=== PATIENT | female | born 2000 | race Caucasian/White ===

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

== ENCOUNTER 2021-10-28 02:19 | Emergency (ER) | payer OTHER, SELFPAY ==
[2021-10-28 02:26] VITALS: PULSE 138; O2SAT 96
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
[2021-10-28 04:19] LABS: Basophils Absolute Auto 0.1 X10*3/uL (0.0-0.2); Basophils Percent Auto 0.2 % (0-2); Hematocrit 38.9 % (37.0-47.0); Hemoglobin 12.9 g/dl (12.0-16.0); Imm Gran Abs Auto 0.13 X10*3/uL (0.00-0.03); Imm Gran Pct Auto 0.5 % (0.0-0.4); Lymphocytes Absolute Auto 1.1 X10*3/uL (1.2-4.9); MANUAL DIFF FLAG SCAN; Mean Corpuscular HGB Conc 33.2 g/dl (31.0-35.0); Mean Corpuscular Hemoglobin 30.2 pg (27.0-33.0); Mean Corpuscular Volume 91.1 fL (80.0-98.0); Mean Platelet Volume 10.1 fL (9.4-12.3); Monocytes Absolute Auto 1.7 X10*3/uL (0.1-1.2); Monocytes Percent Auto 6.2 % (2-11); Neutrophils Absolute Auto 24.2 x10*3/uL (2.0-8.3); Neutrophils Percent Auto 89.1 % (45-73); Platelet Count 373 X10*3/uL (160-400); Red Blood Count 4.27 X10*6/uL (4.20-5.50); Red Cell Distribution Width 13.4 % (11.0-16.0); SCAN SMEAR FLAG 1; White Blood Count 27.1 X10*3/uL (4.8-10.8)
[2021-10-28 04:22] LABS: UPreg QC Valid YES; Urine Pregnancy NEGATIVE (NEGATIVE)
[2021-10-28 04:23] LABS: SLIDE REVIEW VERIFIED
[2021-10-28 04:35] LABS: COVID-19 Test Negative (Negative); IDNOW Serial# 16C4AD1C
[2021-10-28 04:36] LABS: Amphetamine Screen Urine Not Detected (Not Detect); Barbiturates, Urine Not Detected (Not Detect); Benzodiazepines Screen Urine Not Detected (Not Detect); Cannabinoid Screen Urine POSITIVE (Not Detect); Cocaine Screen Urine POSITIVE (Not Detect); Fentanyl, urine Not Detected (Not Detect); Opiate Screen Urine Not Detected (Not Detect); Phencyclidine Screen Urine Not Detected (Not Detect)
[2021-10-28 04:38] LABS: Alanine Aminotransferase 25 U/L (0-31); Albumin Level 4.6 g/dL (3.5-5.0); Alkaline Phosphatase 80 U/L (39-117); Anion Gap 19 (12-20); Aspartate Amino Transferase 40 U/L (5-31); Bilirubin Direct 0.3 mg/dL (0.0-0.5); Bilirubin Total 0.6 mg/dL (0.0-1.0); Blood Urea Nitrogen 16 mg/dL (9-16); Calcium 9.5 mg/dL (8.4-10.2); Carbon Dioxide 20 mmol/L (22-29); Chloride 106 mmol/L (96-108); Estimated Glomerular Filt Rate > 60; Glucose Random 94 mg/dL (60-115); Potassium 3.9 mmol/L (3.3-5.1); Sodium 141 mmol/L (135-145); Total Protein 7.7 g/dL (6.5-8.0)
[2021-10-28 05:08] VITALS: BP 138/71; PULSE 95; RESP 20; O2SAT 96; BMI 26.6
--- NOTE | 2021-10-28 07:20 | MHC.CARE ---
[employer] sheet submitted
[2021-10-28 10:53] LABS: MANUAL DIFF FLAG NO
[2021-10-28 10:54] LABS: Basophils Percent Auto 0.2 % (0-2); Eosinophils Percent Auto 0.1 % (0-4); Hematocrit 34.4 % (37.0-47.0); Hemoglobin 11.8 g/dl (12.0-16.0); Imm Gran Abs Auto 0.08 X10*3/uL (0.00-0.03); Imm Gran Pct Auto 0.4 % (0.0-0.4); Lymphocytes Absolute Auto 1.9 X10*3/uL (1.2-4.9); Lymphocytes Percent Auto 9.1 % (20-40); Mean Corpuscular HGB Conc 34.3 g/dl (31.0-35.0); Mean Corpuscular Hemoglobin 31.1 pg (27.0-33.0); Mean Corpuscular Volume 90.5 fL (80.0-98.0); Mean Platelet Volume 10.3 fL (9.4-12.3); Monocytes Absolute Auto 1.3 X10*3/uL (0.1-1.2); Monocytes Percent Auto 6.4 % (2-11); Neutrophils Absolute Auto 17.3 x10*3/uL (2.0-8.3); Neutrophils Percent Auto 83.8 % (45-73); Platelet Count 332 X10*3/uL (160-400); Red Cell Distribution Width 13.4 % (11.0-16.0); White Blood Count 20.7 X10*3/uL (4.8-10.8)
[2021-10-28 11:11] LABS: Lactic Acid 1.1 mmol/L (0.5-2.0)
--- NOTE | 2021-10-28 12:33 | PC.NURSE ---
client received in behavioral pod, counselor relayed to this filing writer that client can spend a long time in restroom and nconsidering we only have one restroom currently, t/w will begin prompting after ten minutes,
[2021-10-28 15:52] VITALS: RESP 16
--- NOTE | 2021-10-28 16:22 | PC.NURSE ---
Pt reports constipation. Has known bathroom behaviors reports. Pt informed of time limit.
--- NOTE | 2021-10-28 16:26 | PC.NURSE ---
Security contacted to assist in removal from bathroom.
[2021-10-29 01:03] VITALS: BP 134/65; PULSE 82; RESP 17; TEMP 36.6; O2SAT 98
--- NOTE | 2021-10-29 06:02 | PC.NURSE ---
Patient slept through the night, no distress observed/reported, behavior appropriate and non concerning, patient not on any medication, awaiting BHN assessment in the morning, VSS, will continue to monitor.
== END 2021-10-29 11:02 | disposition home or self-care (01) ==
PROVIDERS: Emergency Provider Emergency Medicine
DX: F25.0 Schizoaffective disorder, bipolar type (principal); F41.9 Anxiety disorder, unspecified; S00.12XA Contusion of left eyelid and periocular area, initial encounter; S60.212A Contusion of left wrist, initial encounter; S60.211A Contusion of right wrist, initial encounter; S80.02XA Contusion of left knee, initial encounter; S80.01XA Contusion of right knee, initial encounter; Y35.813A Legal intervention involving manhandling, suspect injured, initial encounter; R45.1 Restlessness and agitation; F19.10 Other psychoactive substance abuse, uncomplicated; Y93.9 Activity, unspecified; Y92.9 Unspecified place or not applicable; Y99.9 Unspecified external cause status; Z20.822 Contact with and (suspected) exposure to COVID-19; Z91.14 Patient's other noncompliance with medication regimen
CPT/HCPCS: 36415; 80048; 80076; 80307; 81025; 83605; 85025; 87635; 99284

== ENCOUNTER 2022-07-14 19:56 | Emergency (ER) | payer OTHER, SELFPAY ==
[2022-07-14 20:02] VITALS: BP 109/55; BP 120/86; PULSE 89; PULSE 92; RESP 16; TEMP 36.7; O2SAT 96; O2SAT 97; BMI 26.3
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
--- NOTE | 2022-07-14 21:02 | ED_ITS ---
HPI - Overdose General Chief Complaint: Overdose Stated Complaint: od Time Seen by Provider: 07/14/22 20:05 Source: EMS Mode of arrival: EMS Limitations: other History of Present Illness HPI Narrative: Patient comes to the emergency room via ambulance. Patient was found minimally responsive by friends at another friend's house. Friend is administered 8 mg of Narcan and patient became responsive. Patient has no complaints, states that she feels very sleepy. Denies suicidal or homicidal ideation. Patient denies using any drugs Related Data Home Medications Medication Instructions Recorded Confirmed No Known Home Meds 10/28/21 10/28/21 Allergies Allergy/AdvReac Type Severity Reaction Status Date / Time No Known Allergies Allergy Unverified 10/29/19 17:04 [No Known Allergies*] Review of Systems Review of Systems: Constitutional : No Weight loss, No Fever, No Chills, No Night Sweats, No Fatigue, No Malaise ENT/Mouth : No Hearing loss, No Ear Pain, No Nasal Congestion, No Sinus Pain, No Hoarseness, No sore throat, No Rhinorrhea, No Swallowing Difficulty Eyes: No Eye Pain, No Swelling, No Redness, No Foreign Body, No Discharge, No Vision Changes Cardiovascular : No Chest Pain, No SOB, No Dyspnea on Exertion, No Orthopnea, No Edema, No Palpitations Respiratory : No Cough, No Sputum, No Wheezing, No Smoke Exposure, No Dyspnea Gastrointestinal : No Nausea, No Vomiting, No Diarrhea, No Constipation, No abdominal Pain, No Hematochezia, No Melena Genitourinary : no irregular bleeding, No Dysuria, No Urinary Frequency, No Hematuria, No Urinary Incontinence, No Urgency, No Flank Pain, No Urinary Flow Changes, No Hesitancy Musculoskeletal : No joint pain, No Myalgias, No Joint Swelling Skin : No Skin Lesions, No rash Neuro : No Weakness, No Numbness, No Paresthesias, No Loss of Consciousness, No Dizziness, No Headache Psych : No Anxiety/Panic, No Depression, No SI/HI/AH/VH, denies drug abuse Heme/Lymph: No Bruising, No Bleeding,No Lymphadenopathy Endocrine : No Polyuria, No Polydipsia, No Temperature Intolerance PMFSH Past Medical History Medical History Bipolar 1 disorder, mixed, severe Cocaine use disorder Depression No known health problems Overdose Social History Social History Household Members: Family Housing: Condominium Do you presently have visiting nurse or other home services: No Alcohol intake: current Alcohol intake frequency: a few times a month Patient Tobacco Use Status: Never used Tobacco Smoked in Last 30 Days: No Second Hand Smoke Exposure: No Substance Use Type: Marijuana Advance Directives: No Advance Directives Information Provided: No service: No Sexual orientation: Lesbian/Robins/Homosexual Physical Exam Vital Signs: Vital Signs: Last Vital Signs Temp 98.0 F 07/14/22 22:03 Pulse 87 07/14/22 22:03 Resp 16 07/14/22 22:03 BP 103/62 07/14/22 22:03 Pulse Ox 99 07/14/22 22:03 O2 Del Method Room Air 07/14/22 22:03 BMI result Body Mass Index 26.3 Const: Other: Appearance: Alert. No acute distress, somnolent, easily arousable Eyes: Pupils equal, round and reactive to light. ENT: Pharynx normal. Neck: Normal inspection. Neck supple. No lymph nodes noted. No crepitus CVS: Normal heart rate and rhythm. Pulses normal. Normal S1 and S2 Respiratory: No respiratory distress. Breath sounds normal. No Wheezing. No rales Abdomen: Soft and nontender. No rigidity. No distention. Skin: Skin warm and dry. Normal skin color. Normal skin turgor. Extremities: No lower extremity edema. No Lacerations. No Rash Neuro: Oriented X 3. No motor deficit. No sensory deficit. Moving all extremities. No slurred speech. CN 2 through 12 grossly intact Psych: calm, cooperative, normal affect Medical Decision Making Medical Decision Making MDM Narrative: -patient had good response with Narcan according to paramedics. -reviewing patient's previous medical records, patient has tested positive for cocaine and marijuana -plan: Metabolized to freedom -reassess this patient wants a care/sude eval -patient provided with home Narcan -physician observation started at 20:55 - -patient awake, alert, ambulated to the bathroom by herself, oxygen saturation 100% -patient declined to be seen by the care team/resource recovery engineer Lab Data Labs: Lab Results 06/03/23 06/03/23 06/03/23 Range/Units 22:28 22:28 22:28 Urine Color Yellow Urine Appearance Clear Urine pH 6.0 (5.0-9.0) Ur Specific [place] 1.010 (1.005-1.025) Urine Protein Negative (Neg-Trace) mg/dL Urine Glucose (UA) Negative (Negative) mg/dL Urine Ketones Negative (Negative) mg/dL Urine Blood Negative (Negative) Urine Nitrite Negative (Negative) Ur Leukocyte Esterase Negative (Negative) Urine Test NEGATIVE (NEGATIVE) Urine Opiates Screen Not Detected (Not Detect) Urine Fentanyl Screen POSITIVE H (Not Detect) Ur Barbiturates Screen Not Detected (Not Detect) Ur Phencyclidine Scrn POSITIVE H (Not Detect) Ur Amphetamines Screen Not Detected (Not Detect) U Benzodiazepines Scrn Not Detected (Not Detect) Urine Cocaine Screen POSITIVE H (Not Detect) U Marijuana (THC) Screen POSITIVE H (Not Detect) Discharge Plan Discharge Clinical Impression: Accidental overdose Patient Disposition: Home, Self-Care Instructions: Adult Overdose (ED) Additional Instructions: Please follow-up with your primary care physician tomorrow. If you have any worsening or new symptoms, please return to the emergency room or call 911 Prescriptions: No Action No Known Home Meds
[2022-07-14 22:03] VITALS: BP 103/62; PULSE 87; RESP 16; TEMP 36.7; O2SAT 99
[2022-07-14 22:38] LABS: Appearance Urine Clear; Color Urine Yellow; Glucose Urine UA Negative (Negative); Leukocyte Esterase Urine Negative (Negative); Nitrite Urine Negative (Negative); Urine Blood Negative (Negative); Urine Ketones Negative (Negative); Urine Protein Negative (Neg-Trace)
[2022-07-14 22:39] LABS: UPreg QC Valid YES; Urine Pregnancy NEGATIVE (NEGATIVE)
[2022-07-14 22:47] LABS: Amphetamine Screen Urine Not Detected (Not Detect); Barbiturates, Urine Not Detected (Not Detect); Benzodiazepines Screen Urine Not Detected (Not Detect); Cannabinoid Screen Urine POSITIVE (Not Detect); Cocaine Screen Urine POSITIVE (Not Detect); Fentanyl, urine POSITIVE (Not Detect); Opiate Screen Urine Not Detected (Not Detect); Phencyclidine Screen Urine POSITIVE (Not Detect)
[2022-07-14] MEDS: Naloxone HCl Nasal TAKE HOME 4 MG SPRAY NOSTRILALT (23:14)
--- NOTE | 2022-07-14 23:15 | PC.NURSE ---
Addendum entered by Geraldine Enriquez 07/15/22 00:34: actual time 2325 Original Note: Discharge instructions given and explained to pt no apparent distress aox4 vss gait steady all of pt's questions answered narcan given to pt take home pr MAR
[2022-07-14 23:19] VITALS: BP 125/73; PULSE 85; RESP 13; TEMP 37.1; O2SAT 97
--- NOTE | 2022-07-14 23:25 | PC.NURSE ---
assumed care of pt aox4 no apparent distress no sob, no respiratory distress safe/independent gait vss discharge instructions given /explained to pt
== END 2022-07-14 23:30 | disposition home or self-care (01) ==
PROVIDERS: Emergency Provider Emergency Medicine; PCP Family Medicine
DX: T40.5X1A Poisoning by cocaine, accidental (unintentional), initial encounter (principal); F12.10 Cannabis abuse, uncomplicated; Y92.9 Unspecified place or not applicable; Z79.899 Other long term (current) drug therapy; Z71.51 Drug abuse counseling and surveillance of drug abuser
CPT/HCPCS: 80307; 81003; 81025; 99284

== ENCOUNTER 2022-08-19 09:16 | Emergency (ER) | payer OTHER, SELFPAY ==
--- NOTE | 2022-08-19 09:26 | ED.OVERDOSE ---
HPI - Overdose General Stated Complaint: Poss overdose per EMS Time Seen by Provider: 08/19/22 09:22 Source: patient and EMS Mode of arrival: EMS Limitations: no limitations History of Present Illness HPI Narrative: 22-year-old female brought in by EMS for possible drug overdose. Patient in the emergency department is awake able to provide history, patient stated that she was given a bag of heroin by a friend which she sniffed it, patient became unresponsive require 4 mg of Narcan given by EMS at the scene, patient declined depression, SI, HI, or AVH. Patient currently feels fine. Related Data Home Medications Medication Instructions Recorded Confirmed No Known Home Meds 10/28/21 10/28/21 Allergies Allergy/AdvReac Type Severity Reaction Status Date / Time No Known Allergies Allergy Unverified 10/29/19 17:04 [No Known Allergies*] Review of Systems Review of Systems: All other systems are reviewed and are negative Constitutional: Reports as per HPI and Reports no additional constitutional complaints Eyes: Reports as per HPI and Reports no additional eye complaints Reports system reviewed and no additional complaints, except as documented Cardiovascular: Reports as per HPI and Reports no additional cardiovascular complaints Respiratory: Reports as per HPI and Reports no additional respiratory complaints Gastrointestinal: Reports as per HPI and Reports no additional gastrointestinal complaints Genitourinary: Reports no additional female genitourinary complaints Musculoskeletal: Reports no additional musculoskeletal complaints Skin/Breast: Reports system reviewed and no additional complaints, except as docu Psychiatric: Reports no additional psychiatric complaints Endocrine: Reports no additional endocrine complaints Hematologic/Lymphatic: Reports no additional hematologic/lymphatic complaints Allergic/Immunologic: Reports no additional allergic/immunologic complaints Reports system reviewed and no additional complaints, except as documented and Reports Abnormal speech present REPLACED BY [facility] Past Medical History Medical History Bipolar 1 disorder, mixed, severe Cocaine use disorder No known health problems Social History Social History Household Members: Family Housing: Condominium Do you presently have visiting nurse or other home services: No Alcohol intake: current Alcohol intake frequency: a few times a month Patient Tobacco Use Status: Never used Tobacco Second Hand Smoke Exposure: No Substance Use Type: Marijuana service: No Sexual orientation: Lesbian/Robins/Homosexual Physical Exam Vital Signs: Vital Signs: Vital signs have been reviewed as appeared to be correct. Blood pressure normal. Heart rate normal. Respiration rate normal. Temperature normal. Oxygen saturation normal. Appearance: Alert. Oriented X3. No acute distress. Head: Normal external exam. Normocephalic. Atraumatic. No Goins signs noted. No raccoon eyes noted Eyes: PERRLA. EOMI. Conjunctiva and sclera normal. Eyelids normal. ENT: TM's Normal. Pharynx normal. Uvula midline. Moist mucous membranes. No trismus noted. No drooling noted. No muffled voice noted. Neck: Normal inspection. Neck supple. FROM. No adenopathy. Thyroid Normal. No meningeal signs. No neck mass noted. CVS: Normal heart rate and rhythm. Heart sound normal. No murmurs noted. Pulses normal throughout. Respiratory: No respiratory distress. Painless inspiration. Breath sounds normal. No wheezes/rales/rhonchi noted. Chest nontender. No accessory muscle usage noted or decreased air movement noted. Abdomen: Soft and nontender. Bowel sounds normal in all 4 quadrants. No distention noted. No organomegaly noted. No visible injury noted. Back: No CVA tenderness. Full range of motion noted. Skin: Skin warm and dry. Normal skin color. Normal skin turgor. No rashes/lesions/lacerations noted. Extremities: No lower extremity edema. Extremities exhibit normal range of motion. Extremities nontender. Neuro: Oriented X 3. Cranial nerve exam: II-XII are grossly intact No motor deficit. No sensory deficit. Reflexes normal. Patient Orientation: Person, Place, Time and Situation, okay hygiene and grooming. Fair eye contact, attentive, no tics or tremors. Level of Consciousness: Awake, Appropriate and Alert Patient Behavior: Appropriate, Guarded, Cooperative and Anxious Mood Description: Constricted, Blunted and Apprehensive Affect Description: Constricted, Blunted and Apprehensive Patient Cognition Impaired: No Ability to Follow Directions: Excellent Speech Pattern: Clear, Appropriate and Spontaneous Speech, nonpressured, spontaneous with regular rate and rhythm, normal volume and prosody. No dysarthria. Memory Description: Intact, Immediate Intact and Short Term Intact Hallucinations: None Delusions: Not Present Thought Process: Intact Thought Content: positive for Intact, positive for Logical, denies Suicidal Ideation and denies Homicidal Ideation. Depressive Symptoms: Not present. Judgement and Insight: Limited but adequate. Course Course Course Narrative: Accidental drug overdose, patient has been stable in the emergency department. No depression, no SI, no HI. Medical Decision Making Differential Diagnosis Differential Diagnoses: The differential diagnosis associated with the presentation includes (Drug overdose, depression, SI, .) Lab Data MDM Lab Attestation statement: I reviewed the patient's lab results. Discharge Plan Discharge Clinical Impression: Accidental drug overdose Patient Disposition: Home, Self-Care Instructions: Polysubstance Abuse (ED) Prescriptions: No Action No Known Home Meds
[2022-08-19 09:29] VITALS: BP 123/75; BP 141/77; PULSE 110; PULSE 122; RESP 16; TEMP 36.8; O2SAT 97; O2SAT 98; BMI 24.2
--- NOTE | 2022-08-19 10:13 | HO.SUDE ---
Met with pt in [facility] after pt presented after accidental overdose. Pt reports began using substances, heroin and cocaine, 6 months ago. Pt has been in recovery x 2 months. This morning pt reports using $10 cocaine, [place], which resulted in overdose; presumably due to fentanyl being present as pt responded to Narcan. Pt denies using opioids today. Pt attributes recovery time to working and staying busy, is presently employed. Pt is not interested in recovery support/resources at this time. Educated pt on fentanyl and use after a period of abstinence. Discussed harm reduction and provided pt with fentanyl test strips. Pt declines other referrals/interventions at this time. Denies questions or concerns for t/w. Spoke with ED provider, plan to dc home with Narcan.
== END 2022-08-19 10:41 | disposition home or self-care (01) ==
PROVIDERS: Emergency Provider Emergency Medicine
DX: T40.1X1A Poisoning by heroin, accidental (unintentional), initial encounter (principal); Y92.9 Unspecified place or not applicable; Z79.899 Other long term (current) drug therapy
CPT/HCPCS: 80307; 81025; 99284

== ENCOUNTER 2023-02-02 01:22 | Emergency (ER) | payer OTHER, SELFPAY ==
[2023-02-02] VITALS (13 sets, daily range): BP systolic 119–138; BP diastolic 82–83; PULSE 92–168; RESP 14–38; TEMP 36.3; O2SAT 94–99; BMI 34.0
--- NOTE | 2023-02-02 | ECG_ITS ---
Test Reason : OVERDOSE Blood Pressure : / mmHG Vent. Rate : 149 BPM Atrial Rate : 149 BPM P-R Int : 122 ms QRS Dur : 080 ms QT Int : 272 ms P-R-T Axes : 083 088 042 degrees QTc Int : 428 ms Sinus tachycardia Nonspecific ST abnormality Abnormal ECG When compared with ECG of 12-JUN-2020 09:25, Non-specific change in ST segment in Inferior leads ST now depressed in Lateral leads Referred By: Kalina Hinojosa Electronically Signed By:ROOPA BERMUDEZ MD
--- NOTE | ~2023-02-02 | XR_ITS ---
EXAMINATION: XR CHEST CLINICAL INFORMATION: Cough COMPARISON: None available. TECHNIQUE: 2 views of the chest were obtained. FINDINGS: Multiple external artifacts overlie the thorax. Normal appearance of the cardiomediastinal structures. No effusions or pneumothoraces. No focal pulmonary consolidation. Normal pattern of pulmonary vasculature. No skeletal abnormalities identified. XR/XR chest 2V IMPRESSION: Normal chest. Lungs clear.
--- NOTE | 2023-02-02 01:30 | PC.NURSE ---
pt BIBA & [facility] uncooperative on ambulance/having outbursts. On arrival pt in restraints by EMS/[employer]. removed restraints and positioned pt on ed stretcher. pt appeared calm however had outburst; screaming/combative/violent with staff. pt placed in 4 point restraints & IM meds administered per Dr. Suarez order. pt appeared more calm however continues swearing at staff. able to obtain ekg and labs; dr suarez aware of tachycardia. pt axox3; denies si/hi, denies drug/alcohol use. 1:1 sitter at bedside. clothes cut off. pt in hospital clothes.
--- NOTE | 2023-02-02 01:32 | ED.PSYCH ---
HPI - Psych General Chief Complaint: Behavioral Concerns Stated Complaint: crisis Time Seen by Provider: 02/02/23 01:30 Source: EMS Mode of arrival: EMS Limitations: other History of Present Illness HPI Narrative: Patient comes to the emergency room via ambulance. bystanders called the police department. Patient was found behind a building, screaming, acting erratically. By the time EMS arrived, patient had been handcuffed, patient was very combative. patient arrived in the ED on restraints. Patient occasionally playing possum, suddenly patient wakes up and starts screaming when starting and then goes back to playing possum. patient awakened screaming, patient is not redirectable Related Data Home Medications Medication Instructions Recorded Confirmed No Known Home Meds 10/28/21 10/28/21 Allergies Allergy/AdvReac Type Severity Reaction Status Date / Time No Known Allergies Allergy Unverified 10/29/19 17:04 [No Known Allergies*] Review of Systems Review of Systems: Yes Unobtainable due to mental status PMFSH Past Medical History Medical History Cocaine use disorder Bipolar 1 disorder, mixed, severe No known health problems Social History Social History Household Members: Family Housing: Condominium Do you presently have visiting nurse or other home services: No Alcohol intake: current Alcohol intake frequency: does not drink Patient Tobacco Use Status: Never used Tobacco Smoked in Last 30 Days: Yes Second Hand Smoke Exposure: No Use of substances other than those prescribed or required for medical reasons: Yes Substance Use Type: Crack/Cocaine and Other service: No Sexual orientation: Lesbian/Robins/Homosexual Physical Exam Vital Signs: Vital Signs: Last Vital Signs Pulse 128 H 02/02/23 03:45 Resp 15 02/02/23 03:45 Pulse Ox 96 02/02/23 03:45 O2 Del Method Room Air 02/02/23 03:45 BMI result Body Mass Index 34.0 Const: Other: Appearance: alternating between being awake, combative and playing possum Eyes: Pupils equal, round and reactive to light. ENT: Pharynx normal. Neck: Normal inspection. Neck supple. No lymph nodes noted. No crepitus CVS: tachycardic in the 160s, Pulses normal. Normal S1 and S2 Respiratory: No respiratory distress. Breath sounds normal. No Wheezing. No rales Abdomen: Soft and nontender. No rigidity. No distention. Skin: Skin warm and dry. Normal skin color. Normal skin turgor. Extremities: No lower extremity edema. No Lacerations. No Rash Neuro: and patient is fully awake, cranial nerves 2-12 grossly intact Psych: as mentioned above, alternating between playing possum and being very combative Course Course Course Narrative: - when patient is awake and combative, patient grabs her own hair and pulls it. Also patient trying to punch staff. - Patient is on physical restraints and on medical restraints. Patient was giving Benadryl 50 mg IM, Ativan 2 mg and Haldol 5 mg IM as well. - Both patient's labs pending Medications Administered Discontinued Medications Generic Name Dose Route Start Last Admin Trade Name Freq PRN Reason Stop Dose Admin Diphenhydramine HCl 50 mg 02/02/23 01:30 02/02/23 01:33 Diphenhydramine Hcl 50 Mg/Ml Vial IM 02/02/23 01:31 50 mg ONCE ONE Administration Haloperidol Lactate 5 mg 02/02/23 01:30 02/02/23 01:33 Haloperidol Lactate 5 Mg/Ml Vial IM 02/02/23 01:31 5 mg STAT STA Administration Sodium Chloride 1,000 mls @ 999 mls/hr 02/02/23 02:11 02/02/23 05:29 Ns IVCONT 02/02/23 03:11 Infused .Q1H1M ONE Infusion Lorazepam 2 mg 02/02/23 01:30 02/02/23 01:33 Lorazepam 2 Mg/Ml Vial IM 02/02/23 01:31 2 mg STAT STA Administration Olanzapine 10 mg 02/02/23 02:39 02/02/23 02:45 Olanzapine 10 Mg Vial IM 02/02/23 02:40 10 mg STAT STA Administration Ziprasidone 20 mg 02/02/23 02:39 02/02/23 02:45 Ziprasidone Mesylate 20 Mg Vial IM 02/02/23 02:40 20 mg ONCE ONE Administration Medical Decision Making Medical Decision Making [facility] Narrative: - up in less than an hour, patient's physical restraints were removed. - Patient's bicarb is 7. Rest of the labs pending including Tylenol, Salicylic acid and venous blood gases. 02:39. Patient has been awake, alert,, cooperative. shortly after, patient became very aggressive, walking towards the techs and trying to punch him. It seems that patient is hallucinating, hearing voices. Patient combative with the nurses, states that they are laughing about her, patient paranoid. Patient getting chemically restrain again, this time IM olanzapine 10 mg and suppressed on 20 mg IM - after IV fluids, patient's carbon dioxide improved, M[facility] resolved - patient may be seen by the care team - Of note, patient is not suicidal or homicidal. We will reassess when patient is sober. Differential Diagnosis Differential Diagnoses: The differential diagnosis associated with the presentation includes ( polysubstance abuse, anxiety, depression) Admission/Observation Consideration of admission/observation: Escalation of care including admission/observation considered Lab Data 02/02/23 01:38 02/02/23 05:27 Labs: Lab Results 02/02/23 02/02/23 02/02/23 Range/Units 01:31 01:38 02:45 WBC 17.4 H (4.8-10.8) X10*3/uL RBC 4.53 (4.20-5.50) X10*6/uL Hgb 13.9 (12.0-16.0) g/dl Hct 44.0 D (37.0-47.0) % MCV 97.1 (80.0-98.0) fL MCH 30.7 (27.0-33.0) pg MCHC 31.6 (31.0-35.0) g/dl RDW 14.7 (11.0-16.0) % Plt Count 363 (160-400) X10*3/uL MPV 10.4 (9.4-12.3) fL Immature Gran % (Auto) 0.9 H (0.0-0.4) % Neut % (Auto) 58.2 (45-73) % Lymph % (Auto) 32.9 (20-40) % [place] % (Auto) 7.0 (2-11) % Eos % (Auto) 0.5 (0-4) % Baso % (Auto) 0.5 (0-2) % Lymph # (Auto) 5.7 H (1.2-4.9) X10*3/uL [place] # (Auto) 1.2 (0.1-1.2) X10*3/uL Eos # (Auto) 0.1 (0.0-0.4) X10*3/uL Baso # (Auto) 0.1 (0.0-0.2) X10*3/uL Abs Immat Gran (auto) 0.16 H (0.00-0.03) X10*3/uL Absolute Neuts (auto) 10.1 H (2.0-8.3) x10*3/uL Absolute Nucleated RBC 0.000 (0.0-0.012) X10*3/uL Nucleated RBC % (auto) 0.0 (0.0-0.2) /100WBC Smear Tech's Comments VERIFIED VBG pH (7.32-7.43) VBG pCO2 mmHg VBG pO2 mmHg VBG HCO3 (22-26) mmol/L VBG O2 Saturation % VBG Base Excess mmol/L Sodium 142 (135-145) mmol/L Potassium 4.1 (3.3-5.1) mmol/L Chloride 108 (96-108) mmol/L Carbon Dioxide 7 L* D (22-29) mmol/L Anion Gap 31 H (12-20) BUN 22 H (9-16) mg/dL Creatinine 1.52 H (0.5-1.4) mg/dL Estim Creat Clear Calc TNP Estimated GFR 43 POC Glucose 152 H (60-115) mg/dL Random Glucose 129 H (60-115) mg/dL Calcium 9.6 (8.4-10.2) mg/dL Magnesium 3.3 H (1.6-2.6) mg/dL Total Bilirubin 0.3 (0.0-1.0) mg/dL Direct Bilirubin 0.1 (0.0-0.5) mg/dL AST 25 (5-31) U/L ALT 22 (0-31) U/L Alkaline Phosphatase 103 (39-117) U/L Total Protein 8.6 H (6.5-8.0) g/dL Albumin 4.8 (3.5-5.0) g/dL Beta HCG, Quant < 2 mIU/mL Salicylates < 5.0 L (15-30) mg/dL Acetaminophen < 3 (<30) mcg/mL Ethyl Alcohol < 10 mg/dL 02/02/23 02/02/23 02/02/23 Range/Units 02:48 05:27 05:28 WBC (4.8-10.8) X10*3/uL RBC (4.20-5.50) X10*6/uL Hgb (12.0-16.0) g/dl Hct (37.0-47.0) % MCV (80.0-98.0) fL MCH (27.0-33.0) pg MCHC (31.0-35.0) g/dl RDW (11.0-16.0) % Plt Count (160-400) X10*3/uL MPV (9.4-12.3) fL Immature Gran % (Auto) (0.0-0.4) % Neut % (Auto) (45-73) % Lymph % (Auto) (20-40) % [place] % (Auto) (2-11) % Eos % (Auto) (0-4) % Baso % (Auto) (0-2) % Lymph # (Auto) (1.2-4.9) X10*3/uL [place] # (Auto) (0.1-1.2) X10*3/uL Eos # (Auto) (0.0-0.4) X10*3/uL Baso # (Auto) (0.0-0.2) X10*3/uL Abs Immat Gran (auto) (0.00-0.03) X10*3/uL Absolute Neuts (auto) (2.0-8.3) x10*3/uL Absolute Nucleated RBC (0.0-0.012) X10*3/uL Nucleated RBC % (auto) (0.0-0.2) /100WBC Smear Tech's Comments VBG pH 7.35 7.38 (7.32-7.43) VBG pCO2 33 34 mmHg VBG pO2 51 89 mmHg VBG HCO3 18 L 20 L (22-26) mmol/L VBG O2 Saturation 74.0 98.0 % VBG Base Excess -5.6 -3.4 mmol/L Sodium 141 (135-145) mmol/L Potassium 4.3 (3.3-5.1) mmol/L Chloride 110 H (96-108) mmol/L Carbon Dioxide 21 L (22-29) mmol/L Anion Gap 14 (12-20) BUN 22 H (9-16) mg/dL Creatinine 1.07 (0.5-1.4) mg/dL Estim Creat Clear Calc 80.5 Estimated GFR > 60 POC Glucose (60-115) mg/dL Random Glucose 114 (60-115) mg/dL Calcium 8.5 D (8.4-10.2) mg/dL Magnesium (1.6-2.6) mg/dL Total Bilirubin (0.0-1.0) mg/dL Direct Bilirubin (0.0-0.5) mg/dL AST (5-31) U/L ALT (0-31) U/L Alkaline Phosphatase (39-117) U/L Total Protein (6.5-8.0) g/dL Albumin (3.5-5.0) g/dL Beta HCG, Quant mIU/mL Salicylates (15-30) mg/dL Acetaminophen (<30) mcg/mL Ethyl Alcohol mg/dL Discharge Plan Discharge Clinical Impression: Polysubstance abuse Patient Disposition: Still a Patient Prescriptions: No Action No Known Home Meds
[2023-02-02] MEDS: LORazepam 2 MG/ML VIAL IM (01:33)
[2023-02-02] MEDS: diphenhydrAMINE HCL 50 MG/ML VIAL IM (01:33)
[2023-02-02] MEDS: Haloperidol Lactate 5 MG/ML VIAL IM (01:33)
[2023-02-02 01:36] LABS: Glucose, Whole Blood 152 mg/dL (60-115)
[2023-02-02 01:42] LABS: Basophils Absolute Auto 0.1 X10*3/uL (0.0-0.2); Basophils Percent Auto 0.5 % (0-2); Eosinophils Absolute Auto 0.1 X10*3/uL (0.0-0.4); Eosinophils Percent Auto 0.5 % (0-4); Hemoglobin 13.9 g/dl (12.0-16.0); Imm Gran Abs Auto 0.16 X10*3/uL (0.00-0.03); Imm Gran Pct Auto 0.9 % (0.0-0.4); Lymphocytes Absolute Auto 5.7 X10*3/uL (1.2-4.9); Lymphocytes Percent Auto 32.9 % (20-40); Mean Corpuscular HGB Conc 31.6 g/dl (31.0-35.0); Mean Corpuscular Hemoglobin 30.7 pg (27.0-33.0); Mean Corpuscular Volume 97.1 fL (80.0-98.0); Mean Platelet Volume 10.4 fL (9.4-12.3); Monocytes Absolute Auto 1.2 X10*3/uL (0.1-1.2); Neutrophils Absolute Auto 10.1 x10*3/uL (2.0-8.3); Neutrophils Percent Auto 58.2 % (45-73); Platelet Count 363 X10*3/uL (160-400); Red Blood Count 4.53 X10*6/uL (4.20-5.50); Red Cell Distribution Width 14.7 % (11.0-16.0); SCAN SMEAR FLAG 1; White Blood Count 17.4 X10*3/uL (4.8-10.8)
[2023-02-02 01:43] LABS: MANUAL DIFF FLAG SCAN
[2023-02-02 01:59] LABS: Ethanol < 10 mg/dL
[2023-02-02 02:03] LABS: Alanine Aminotransferase 22 U/L (0-31); Albumin Level 4.8 g/dL (3.5-5.0); Alkaline Phosphatase 103 U/L (39-117); Anion Gap 31 (12-20); Aspartate Amino Transferase 25 U/L (5-31); Bilirubin Direct 0.1 mg/dL (0.0-0.5); Bilirubin Total 0.3 mg/dL (0.0-1.0); Blood Urea Nitrogen 22 mg/dL (9-16); Calcium 9.6 mg/dL (8.4-10.2); Carbon Dioxide 7 mmol/L (22-29); Chloride 108 mmol/L (96-108); Estimated Glomerular Filt Rate 43; Glucose Random 129 mg/dL (60-115); Magnesium 3.3 mg/dL (1.6-2.6); Potassium 4.1 mmol/L (3.3-5.1); Sodium 142 mmol/L (135-145); Total Protein 8.6 g/dL (6.5-8.0)
--- NOTE | 2023-02-02 02:03 | PC.NURSE ---
pt calm/cooperative, responding appropriately however pt hallucinating; states there's 2 men in the room talking shit and im trying to figure out what they got to say. LL restraint removed.
[2023-02-02 02:13] LABS: SLIDE REVIEW VERIFIED
--- NOTE | 2023-02-02 02:18 | PC.NURSE ---
RA restraint removed.
--- NOTE | 2023-02-02 02:20 | PC.NURSE ---
all restraints removed by Dr. Hinojosa. pt appeared calm/cooperative. assisted to bathroom pt became verbally aggressive.
--- NOTE | 2023-02-02 02:40 | PC.NURSE ---
pt walked out of bathroom asking this RN you trying to fight. Security to bedside reassured pt no one's trying to fight her. pt appeared to calm down however started yelling they're talking shit about me. violent and combative with staff/security.
[2023-02-02] MEDS: Ziprasidone Mesylate 20 MG VIAL IM (02:45)
[2023-02-02] MEDS: OLANZapine 10 MG VIAL IM (02:45)
--- NOTE | 2023-02-02 02:45 | PC.NURSE ---
pt medicated per apr. resp even and unlabored.
[2023-02-02 02:51] LABS: Venous Blood Gas Refer to POC result
[2023-02-02 02:56] LABS: VBG Base Excess -5.6 mmol/L; VBG HCO3 18 mmol/L (22-26); VBG pCO2 33 mmHg; VBG pH 7.35 (7.32-7.43); VBG pO2 51 mmHg
[2023-02-02 03:15] LABS: HCG Quantitative < 2 mIU/mL
--- NOTE | 2023-02-02 03:19 | PC.NURSE ---
pt admits to using cocaine 2 days ago; ecstasy & weed prior to arrival. unable to place IV Dr. Hinojosa aware.
[2023-02-02 03:43] LABS: Acetaminophen LAB < 3 mcg/mL (<30); Salicylate < 5.0 mg/dL (15-30)
[2023-02-02] MEDS: 0.9 % Sodium Chloride 1,000 ML 999 ML IVCONT (04:10)
--- NOTE | 2023-02-02 04:10 | PC.NURSE ---
pt sleeping in stretcher. on heart monitor sinus tachy 115 bpm. resp even and unlabored. sats 96% on ra. iv established. ivf infusing. sitter at bedside.
--- NOTE | 2023-02-02 05:29 | PC.NURSE ---
repeat labs drawn and sent to lab. pt sleeping resp even and unlabored. arrousable to name. warm blanket given. sitter at bedside.
[2023-02-02 05:34] LABS: Venous Blood Gas Refer to POC result
[2023-02-02 05:34] LABS: VBG Base Excess -3.4 mmol/L; VBG HCO3 20 mmol/L (22-26); VBG pCO2 34 mmHg; VBG pH 7.38 (7.32-7.43); VBG pO2 89 mmHg
[2023-02-02 05:44] LABS: Anion Gap 14 (12-20); Blood Urea Nitrogen 22 mg/dL (9-16); Calcium 8.5 mg/dL (8.4-10.2); Carbon Dioxide 21 mmol/L (22-29); Chloride 110 mmol/L (96-108); Creatinine Clr Calc Pharmacy 80.5; Estimated Glomerular Filt Rate > 60; Glucose Random 114 mg/dL (60-115); Potassium 4.3 mmol/L (3.3-5.1); Sodium 141 mmol/L (135-145)
--- NOTE | 2023-02-02 07:22 | PC.NURSE ---
patient appears to be sleeping, respirations equal and unlabored, skin pwd. sitter 1:1 at bedside
[2023-02-02] MEDS: 0.9 % Sodium Chloride 1,000 ML 999 ML IV (07:48)
[2023-02-02 08:07] LABS: Appearance Urine Cloudy; Color Urine Yellow; Glucose Urine UA Negative (Negative); Leukocyte Esterase Urine Negative (Negative); Nitrite Urine Negative (Negative); PH 5.5 (5.0-9.0); UMIC TRIGGER UACC YES; Urine Blood Trace (Negative); Urine Ketones Negative (Negative); Urine Protein Negative (Neg-Trace)
[2023-02-02 08:09] LABS: COVID-19 Test Negative (Negative); IDNOW Serial# 08D9AD1C
[2023-02-02 08:10] LABS: IDNOW Serial# BCCEAD1C; Influenza A Negative (Negative); Influenza B2 Negative (Negative)
[2023-02-02 08:12] LABS: Bacteria Urine None Seen (None Seen); Hyaline Casts Urine 0-2 /LPF (0-2); RBC Urine 0-2 /HPF (0-2); Squamous Epithelial Cell Urine 0-2 /HPF (0-2); WBC Urine 0-5 /HPF (0-5)
[2023-02-02 08:25] LABS: Amphetamine Screen Urine Not Detected (Not Detect); Barbiturates, Urine Not Detected (Not Detect); Benzodiazepines Screen Urine Not Detected (Not Detect); Cannabinoid Screen Urine POSITIVE (Not Detect); Cocaine Screen Urine POSITIVE (Not Detect); Fentanyl, urine POSITIVE (Not Detect); Opiate Screen Urine Not Detected (Not Detect); Phencyclidine Screen Urine POSITIVE (Not Detect)
--- NOTE | 2023-02-02 09:24 | PC.NURSE ---
assumed care of pt at 0900. pt walking around room, asked to sit on stretcher. pt consumed breakfast. pt asking for more food. provided with sandwich and ice cream. 1:1 sitter at bedside. plan of care ongoing.
[2023-02-02 09:43] LABS: Lithium < 0.10 mmol/L (0.60-1.20)
--- NOTE | 2023-02-02 12:45 | PC.NURSE ---
pt sleeping quietly on stretcher. rr even/unlabored. 1:1 sitter at bedside. plan of care ongoing.
--- NOTE | 2023-02-02 14:17 | PC.NURSE ---
pt woke up, asking to go home. pt is a section 12.
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
--- NOTE | 2023-02-02 15:00 | MHC.EDTECH ---
pt belongings brought to pod. ripped clothes. no phone, no sneakers.
--- NOTE | 2023-02-02 17:45 | MHC.CARE ---
CARE team attempted to meet with pt 2x. Pt initially stated she did not need crisis and declined to participate in assessment. Second time pt ignored clinician
--- NOTE | 2023-02-02 18:36 | PC.NURSE ---
Patient given dinner tray in room. Patient mumbled something and went back to sleep.
--- NOTE | 2023-02-02 19:16 | PC.NURSE ---
patient appears to remain asleep at present respirations are even and unlabored patient appears in no distress
== END 2023-02-02 23:44 | disposition home or self-care (01) ==
PROVIDERS: Student in an Organized Health Care Education/Training Program; Emergency Provider Emergency Medicine
DX: F14.959 Cocaine use, unspecified with cocaine-induced psychotic disorder, unspecified (principal); R00.0 Tachycardia, unspecified; R11.2 Nausea with vomiting, unspecified; Z11.52 Encounter for screening for COVID-19; Z20.822 Contact with and (suspected) exposure to COVID-19; Z79.899 Other long term (current) drug therapy
CPT/HCPCS: 36415; 71046; 80048; 80076; 80143; 80178; 80179; 80307; 81001; 82803; 82947; 83735; 84702; 85025; 87502; 87635; 93005; 96360; 96361; 96372; 99285; J1200; J1630; J2060; J2359; J3486; S9485

== ENCOUNTER → 2023-02-02 01:44 | Outpatient (BNV) | payer OTHER, SELFPAY | PROVIDERS: Emergency Provider Emergency Medicine; Visit Provider Internal Medicine Cardiovascular Disease | DX: R00.0 Tachycardia, unspecified (principal); R94.31 Abnormal electrocardiogram [ECG] [EKG] | CPT/HCPCS: 93010 ==

== ENCOUNTER 2023-08-16 00:16 | Emergency (ER) | payer SELFPAY ==
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
[2023-08-16 00:18] VITALS: BP 170/100; PULSE 170; O2SAT 99
[2023-08-16 00:24] VITALS: BP 138/61; PULSE 161; RESP 48; O2SAT 95; BMI 28.4
[2023-08-16 00:34] LABS: Basophils Absolute Auto 0.1 X10*3/uL (0.0-0.2); Basophils Percent Auto 0.4 % (0-2); Eosinophils Absolute Auto 0.1 X10*3/uL (0.0-0.4); Eosinophils Percent Auto 0.3 % (0-4); Hematocrit 41.5 % (37.0-47.0); Hemoglobin 13.7 g/dl (12.0-16.0); Imm Gran Abs Auto 0.09 X10*3/uL (0.00-0.03); Imm Gran Pct Auto 0.6 % (0.0-0.4); Lymphocytes Absolute Auto 5.4 X10*3/uL (1.2-4.9); Lymphocytes Percent Auto 33.5 % (20-40); MANUAL DIFF FLAG SCAN; Mean Corpuscular Hemoglobin 31.7 pg (27.0-33.0); Mean Corpuscular Volume 96.1 fL (80.0-98.0); Mean Platelet Volume 9.7 fL (9.4-12.3); Monocytes Absolute Auto 0.9 X10*3/uL (0.1-1.2); Monocytes Percent Auto 5.8 % (2-11); Neutrophils Absolute Auto 9.6 x10*3/uL (2.0-8.3); Neutrophils Percent Auto 59.4 % (45-73); Platelet Count 438 X10*3/uL (160-400); Red Blood Count 4.32 X10*6/uL (4.20-5.50); Red Cell Distribution Width 13.7 % (11.0-16.0); SCAN SMEAR FLAG 1; White Blood Count 16.1 X10*3/uL (4.8-10.8)
[2023-08-16 00:40] LABS: INTERNATIONAL NORM RATIO 1.2 (0.9-1.1)
[2023-08-16] MEDS: 0.9 % Sodium Chloride 1,000 ML 999 ML IV ×2 (00:48→01:09)
[2023-08-16 00:51] LABS: Alanine Aminotransferase 14 U/L (0-31); Albumin Level 5.1 g/dL (3.5-5.0); Alkaline Phosphatase 78 U/L (39-117); Anion Gap 31 (12-20); Aspartate Amino Transferase 13 U/L (5-31); Bilirubin Total 0.6 mg/dL (0.0-1.0); Blood Urea Nitrogen 13 mg/dL (9-16); Calcium 9.8 mg/dL (8.4-10.2); Carbon Dioxide 10 mmol/L (22-29); Chloride 103 mmol/L (96-108); Creatinine Clr Calc Pharmacy 61.7; Estimated Glomerular Filt Rate 44; Glucose Random 212 mg/dL (60-115); Magnesium 2.6 mg/dL (1.6-2.6); Sodium 140 mmol/L (135-145); Total Protein 8.2 g/dL (6.5-8.0)
[2023-08-16 00:53] LABS: SLIDE REVIEW VERIFIED
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
[2023-08-16 01:13] VITALS: BP 138/61; PULSE 118; RESP 16; O2SAT 98
[2023-08-16 01:25] LABS: HCG Quantitative < 2 mIU/mL
[2023-08-16 04:02] VITALS: BP 114/61; PULSE 89; RESP 16; O2SAT 100
[2023-08-16 05:14] LABS: Anion Gap 10 (12-20); Blood Urea Nitrogen 11 mg/dL (9-16); Calcium 8.1 mg/dL (8.4-10.2); Carbon Dioxide 21 mmol/L (22-29); Chloride 111 mmol/L (96-108); Creatinine Clr Calc Pharmacy 106.8; Estimated Glomerular Filt Rate > 60; Glucose Random 108 mg/dL (60-115); Potassium 3.4 mmol/L (3.3-5.1); Sodium 139 mmol/L (135-145)
[2023-08-16 06:16] LABS: Appearance Urine Clear; Color Urine Yellow; Glucose Urine UA Negative (Negative); Leukocyte Esterase Urine Negative (Negative); Nitrite Urine Negative (Negative); UMIC TRIGGER UACC YES; Urine Blood Negative (Negative); Urine Ketones Trace mg/dL (Negative); Urine Protein 100 (2+) mg/dL (Neg-Trace)
[2023-08-16 06:21] LABS: Bacteria Urine None Seen (None Seen); Hyaline Casts Urine 0-2 /LPF (0-2); RBC Urine 0-2 /HPF (0-2); WBC Urine 0-5 /HPF (0-5)
[2023-08-16 06:25] LABS: Amphetamine Screen Urine Not Detected (Not Detect); Barbiturates, Urine Not Detected (Not Detect); Benzodiazepines Screen Urine Not Detected (Not Detect); Buprenorphine Scr Not Detected (Not Detect); Cannabinoid Screen Urine POSITIVE (Not Detect); Cocaine Screen Urine POSITIVE (Not Detect); Fentanyl, urine Not Detected (Not Detect); Methadone Screen, Urine Not Detected (Not Detect); Opiate Screen Urine Not Detected (Not Detect); Oxycodone Screen Urine Not Detected (Not Detect); Phencyclidine Screen Urine Not Detected (Not Detect)
[2023-08-16 06:27] VITALS: BP 107/59; PULSE 86; RESP 16; O2SAT 97
[2023-08-16 06:47] VITALS: BP 107/59; PULSE 86; RESP 16; TEMP -17.7; TEMP 0; O2SAT 97
== END 2023-08-16 06:48 | disposition home or self-care (01) ==
PROVIDERS: Emergency Provider Internal Medicine
DX: Z04.1 Encounter for examination and observation following transport accident (principal); F19.10 Other psychoactive substance abuse, uncomplicated; R00.0 Tachycardia, unspecified; R06.4 Hyperventilation; E87.20 Acidosis, unspecified; F31.63 Bipolar disorder, current episode mixed, severe, without psychotic features
CPT/HCPCS: 36415; 70450; 72125; 80048; 80053; 80307; 81001; 82550; 83735; 84702; 85025; 85610; 96360; 96361; 99284

== ENCOUNTER 2023-11-21 19:27 | Inpatient (IN) | payer MEDICAID, SELFPAY ==
--- NOTE | ~2023-11-21 | XR_ITS ---
EXAMINATION: XR HAND 1-2 VIEWS RIGHT CLINICAL INFORMATION: , Possible broken hand COMPARISON: None available at the time of this dictation. TECHNIQUE: Frontal lateral oblique views of the hand were obtained. 3 views FINDINGS: There is no fracture or dislocation. Radiocarpal, intercarpal, carpometacarpal, metacarpophalangeal and interphalangeal joints are intact. There are no osteolytic or osteoblastic lesions. There are no bone erosions. Surrounding soft tissue unremarkable. XR/XR hand RT 2V IMPRESSION: No fracture. Electronically signed by: Eric Arzola MD 11/24/2023 08:11 AM EDT
[2023-11-21 20:07] VITALS: BP 120/62; BP 140/82; PULSE 108; PULSE 88; RESP 17; TEMP 36.7; O2SAT 100; O2SAT 99; BMI 26.6
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
[2023-11-21] MEDS: Haloperidol Lactate 5 MG/ML VIAL IM (20:28)
[2023-11-21] MEDS: LORazepam 2 MG/ML VIAL IM (20:28)
--- NOTE | 2023-11-21 20:28 | PC.NURSE ---
pt arrived to dept, immediately combative, swearing at staff, demanding to be put in a room. running nto room ED18 and closing curtain- security called to bedside- attempted to deescalate, --IRA Ceja called to bedside, 5mg IM Haldol, and 2MG Ativan ordered and administered IM
--- NOTE | 2023-11-21 20:31 | PC.NURSE ---
pt changed over by security belongings secured
[2023-11-21 20:38] LABS: MANUAL DIFF FLAG NO
[2023-11-21 20:39] LABS: Basophils Absolute Auto 0.1 X10*3/uL (0.0-0.2); Basophils Percent Auto 0.5 % (0-2); Eosinophils Absolute Auto 0.1 X10*3/uL (0.0-0.4); Eosinophils Percent Auto 1.2 % (0-4); Hematocrit 37.7 % (37.0-47.0); Hemoglobin 13.1 g/dl (12.0-16.0); Imm Gran Abs Auto 0.03 X10*3/uL (0.00-0.03); Imm Gran Pct Auto 0.3 % (0.0-0.4); Lymphocytes Absolute Auto 3.7 X10*3/uL (1.2-4.9); Lymphocytes Percent Auto 32.1 % (20-40); Mean Corpuscular HGB Conc 34.7 g/dl (31.0-35.0); Mean Corpuscular Hemoglobin 31.2 pg (27.0-33.0); Mean Corpuscular Volume 89.8 fL (80.0-98.0); Mean Platelet Volume 10.1 fL (9.4-12.3); Monocytes Absolute Auto 0.8 X10*3/uL (0.1-1.2); Monocytes Percent Auto 6.9 % (2-11); Neutrophils Absolute Auto 6.7 x10*3/uL (2.0-8.3); Platelet Count 343 X10*3/uL (160-400); Red Cell Distribution Width 13.3 % (11.0-16.0); White Blood Count 11.4 X10*3/uL (4.8-10.8)
[2023-11-21 21:00] LABS: Amphetamine Screen Urine Not Detected (Not Detect); Barbiturates, Urine Not Detected (Not Detect); Benzodiazepines Screen Urine Not Detected (Not Detect); Buprenorphine Scr Not Detected (Not Detect); Cannabinoid Screen Urine POSITIVE (Not Detect); Cocaine Screen Urine Not Detected (Not Detect); Fentanyl, urine Not Detected (Not Detect); Methadone Screen, Urine Not Detected (Not Detect); Opiate Screen Urine Not Detected (Not Detect); Oxycodone Screen Urine Not Detected (Not Detect); Phencyclidine Screen Urine Not Detected (Not Detect)
[2023-11-21 21:01] LABS: Alanine Aminotransferase 56 U/L (0-31); Albumin Level 4.3 g/dL (3.5-5.0); Alkaline Phosphatase 49 U/L (39-117); Anion Gap 14 (12-20); Aspartate Amino Transferase 43 U/L (5-31); Bilirubin Total 0.6 mg/dL (0.0-1.0); Blood Urea Nitrogen 12 mg/dL (9-16); Calcium 9.6 mg/dL (8.4-10.2); Carbon Dioxide 23 mmol/L (22-29); Chloride 110 mmol/L (96-108); Creatinine Clr Calc Pharmacy 101.2; Estimated Glomerular Filt Rate > 60; Glucose Random 104 mg/dL (60-115); Lipase 8 U/L (8-78); Potassium 3.7 mmol/L (3.3-5.1); Sodium 143 mmol/L (135-145); Total Protein 6.9 g/dL (6.5-8.0)
[2023-11-21 21:07] LABS: HCG Quantitative < 2 mIU/mL
--- NOTE | 2023-11-21 22:21 | PC.NURSE ---
pt medicated with positive effect-pt resting on gurney with eyes closed, rise and fall of chest noted.-pt awaiting medical clearance to be placed in Pod for crisis eval
[2023-11-21 22:22] LABS: Appearance Urine Clear; Color Urine Dark Yellow; Glucose Urine UA Negative (Negative); Leukocyte Esterase Urine Negative (Negative); Nitrite Urine Negative (Negative); Specific Gravity - Urine >= 1.030 (1.005-1.025); Urine Blood Negative (Negative); Urine Ketones 80 mg/dL (Negative); Urine Protein Trace mg/dL (Neg-Trace)
--- NOTE | 2023-11-21 23:15 | PC.NURSE ---
This chart writer assumed care of this Pt at 2300. Pt appears to be sleeping at this time, equal, non-labored respirations.
[2023-11-22] VITALS: PULSE 75; O2SAT 96
[2023-11-22 04:00] VITALS: BP 102/54; PULSE 90; RESP 16; TEMP 36.8; O2SAT 96
--- NOTE | 2023-11-22 04:27 | PC.NURSE ---
Pt awake, requesting to use the BR, Pt ambulated independently with steady gait. Pt upset, states I can't believe they didn't bring my fucking [place] food, I paid $30 for it , Pt redirected, given sandwhich and cathie brant. Pt in room pacing making grunting noises and talking to self.
[2023-11-22 06:09] LABS: Ethanol < 10 mg/dL
[2023-11-22 08:25] VITALS: BP 112/67; PULSE 91; RESP 16; TEMP 36.8; O2SAT 97
[2023-11-22 13:03] VITALS: BP 120/79; PULSE 95; RESP 20; TEMP 36.4; O2SAT 98
--- NOTE | 2023-11-22 13:30 | PC.NURSE ---
patient having intermitent outburst of rage, and yelling. patient redirectable at this time. MD aware. Patient reports other people yelling and being disrespectful really triggering.
--- NOTE | 2023-11-22 13:36 | PC.NURSE ---
patient offered motrin per her request for her mouth pain and tingling and she refused at this time. will attempt offer again in a little while.
[2023-11-22] MEDS: Acetaminophen 325 MG TABLET 650 MG PO (15:35)
--- NOTE | 2023-11-22 15:36 | PC.NURSE ---
Difficult arrival to POD. initially unwilling to enter once she realized it was a secure unit. Pt filling mouth cavity with tissues and intentionally vomiting twice. hid box of tissues in her underwear.
[2023-11-22] MEDS: OLANZapine 10 MG VIAL IM ×2 (16:00→23:35)
[2023-11-22] MEDS: risperiDONE 1 MG TABLET PO (17:35)
--- NOTE | 2023-11-22 18:30 | PC.NURSE ---
Pt laying down for the first time since arrival to ED. Has been pacing, at times agitated and pushing on doors, instigating verbal arguments with other clients. Wasn't willing to take PO meds but did eventually.
--- NOTE | 2023-11-22 19:41 | PC.NURSE ---
late entry. 1600. IM olazepine given for psychosis and erratic behavior per Dr Browne.
--- NOTE | 2023-11-22 22:01 | PC.NURSE ---
patient awaoke and immeduiately started ranting and screaming obscenity as she bolted toward bathroom i need a fucking warm blanket t/w obtained zydis which patient refused once she was back in room. t/w pursued sterile water for injection and then patient was by security report asleep . notified provider. also detailed i had little darlene client would be able to keep future behavior in control.
[2023-11-22] MEDS: LORazepam 2 MG/ML VIAL IM (23:35)
[2023-11-23] MEDS: LORazepam 2 MG/ML VIAL IM (01:25)
[2023-11-23] MEDS: OLANZapine 10 MG VIAL IM (01:25)
[2023-11-23] MEDS: Midazolam HCl/PF 2 MG/2 ML VIAL IM (03:51)
--- NOTE | 2023-11-23 08:22 | MHC.EDTECH ---
patient ambulated to bathroom ., showered . RN aware
--- NOTE | 2023-11-23 11:41 | PC.NURSE ---
patient ambulating in pod independently, occasional verbal outbursts - brief in duration at this time.
[2023-11-23 11:55] VITALS: BP 114/75; PULSE 104; RESP 16; TEMP 36.4; O2SAT 98
--- NOTE | 2023-11-23 12:23 | PC.NURSE ---
speaking with psychiatrist at this time
--- NOTE | 2023-11-23 12:59 | PM.PSYCN ---
History of Present Illness Date of Service: 11/23/2023 Chief Complaint: CRISIS Reason for Consult: Psychiatric evaluation and disposition Requesting physician: Mariana Jennings Discussed with referring provider: Yes Sources of Information: patient interviewed, chart reviewed and crisis/core team assessment reviewed HPI Narrative: Joyce is a 23-year-old , single, ?employed? at a [employer] (formerly [employer]). She has a very poor historian, is agitated. She was picked up by the police after she was agitated and screaming in the library in [place] and brought to the emergency room. She states that she was hospitalized psychiatrically 2 months ago and was on several medications including Zyprexa. She denies any history of current substance abuse. Her tox screen was so far positive for marijuana. In the past she has been positive for fentanyl and phencyclidine. She is homeless and not connected to any psychiatric outpatient services. In the emergency room she is agitated, screaming, demanding to be discharged and is quite hypomanic. In the records it appears that she was hospitalized in 2020 on this unit and [facility]. Past Psychiatric History: Inpatient: 05/2020 psychosis; [facility] 05/25/20 OP: none Suicide attempts: none Medication trials: risperidone Personal & Social History: She is 1 of 5 siblings. Her father is and mother is living. She is currently homeless but states that she can stay with her sister. I was not able to get any further information at this time Review of Systems Review of Systems Yes Unobtainable due to mental status PMFSH Medical History Cocaine use disorder Bipolar 1 disorder, mixed, severe No known health problems Family History: paternal grandmother- depression Social History: Pt was born in [place]. Raised by both parents. She has 2 sisters and 2 brothers. Substance History: Polysubstance is historically and marijuana confirmed currently Trauma History: Unknown Diagnostics Vital Signs (24Hr): Vital Signs - 24 hr 11/22/23 13:03 11/23/23 11:55 Temperature 97.6 F 97.6 F Pulse Rate 95 104 H Respiratory Rate 20 16 Blood Pressure 120/79 114/75 Pulse Oximetry 98 98 Oxygen Delivery Method Room Air Room Air BMI result Body Mass Index 26.6 Labs 11/21/23 20:34 11/21/23 20:34 Labs: Laboratory Results - last 48 hr 11/21/23 11/21/23 11/22/23 20:34 20:42 05:51 WBC 11.4 H RBC 4.20 Hgb 13.1 Hct 37.7 MCV 89.8 MCH 31.2 MCHC 34.7 RDW 13.3 Plt Count 343 MPV 10.1 Immature Gran % (Auto) 0.3 Neut % (Auto) 59.0 Lymph % (Auto) 32.1 [place] % (Auto) 6.9 Eos % (Auto) 1.2 Baso % (Auto) 0.5 Lymph # (Auto) 3.7 [place] # (Auto) 0.8 Eos # (Auto) 0.1 Baso # (Auto) 0.1 Abs Immat Gran (auto) 0.03 Absolute Neuts (auto) 6.7 Absolute Nucleated RBC 0.000 Nucleated RBC % (auto) 0.0 Sodium 143 Potassium 3.7 Chloride 110 H Carbon Dioxide 23 Anion Gap 14 BUN 12 Creatinine 0.87 Estim Creat Clear Calc 101.2 Estimated GFR > 60 Random Glucose 104 Calcium 9.6 Total Bilirubin 0.6 AST 43 H ALT 56 H Alkaline Phosphatase 49 Total Protein 6.9 Albumin 4.3 Lipase 8 Beta HCG, Quant < 2 Urine Color Dark Yellow Urine Appearance Clear Urine pH 6.0 Ur Specific [place] >= 1.030 H Urine Protein Trace Urine Glucose (UA) Negative Urine Ketones 80 Urine Blood Negative Urine Nitrite Negative Ur Leukocyte Esterase Negative Urine Opiates Screen Not Detected Ur Buprenorphine Scrn Not Detected Ur Oxycodone Screen Not Detected Urine Methadone Screen Not Detected Urine Fentanyl Screen Not Detected Ur Barbiturates Screen Not Detected Ur Phencyclidine Scrn Not Detected Ur Amphetamines Screen Not Detected U Benzodiazepines Scrn Not Detected Urine Cocaine Screen Not Detected U Marijuana (THC) Screen POSITIVE H Ethyl Alcohol < 10 Mental Status Exam Mental Status Exam Narrative: In today's visit she is alert, initially cooperative but then started screaming and demanding to be discharged and then was running up and down the [place] asking for lunch. She denies AVH and has been observed to possibly be responding to internal stimuli. No overt delusions. She denies SI. Cognitively could not be assessed but has racing thoughts, disorganized thinking. Judgment is impaired because of her current mental status Medications Medications Current Medications Olanzapine (Olanzapine Odt 10 Mg Tab.Rapdis) 10 mg TRANSLINGU Q6H PRN PRN Reason: agitation Risperidone (Risperidone 1 Mg Tablet) 1 mg PO BID DEB Last Admin: 11/23/23 08:50 Dose: Not Given Allergies Allergies Allergy/AdvReac Type Severity Reaction Status Date / Time No Known Allergies Allergy Unverified 11/22/23 10:14 [No Known Allergies*] Assessment & Plan Assessment & Plan (1) Stephanie: Status: Acute Code(s): F30.9 - Manic episode, unspecified (2) Psychosis: Status: Acute Code(s): F29 - Unspecified psychosis not due to a substance or known physiological condition Plan Conclusion she is currently in a manic phase with poor judgment, lack of insight and unable to function on her own in addition to not having a place to live. A bed search is continued and in the meanwhile she does need to get medicated. I suggest Zyprexa 10 mg q.h.s. and 5 mg IM for her current agitation. I would discontinue the Risperdal currently because she needs something a little more sedating. Total time managing care of this patient today __40__ minutes.
--- NOTE | 2023-11-23 14:48 | PC.NURSE ---
patient has remained in behavioral control for most of shift w/ brief episodes of yelling. at this time patient is sitting in chair w/ even and unlabored respirations, eyes closed.
[2023-11-23] MEDS: OLANZapine ODT 10 MG TAB.RAPDIS TRANSLINGU ×2 (16:25→23:26)
--- NOTE | 2023-11-23 16:25 | PC.NURSE ---
past 1/2 hour patient has been escalating, misunderstanding a staff comment and interpreting it as a threat. Was difficult to redirect but then able to enter room and sit for a short time awaiting ice cream. Took Sonia KIM after lengthy and various conversations.
[2023-11-23] MEDS: diphenhydrAMINE HCL 25 MG CAPSULE 50 MG PO (19:28)
[2023-11-23] MEDS: risperiDONE 1 MG TABLET PO (19:28)
[2023-11-23] MEDS: LORazepam 1 MG TABLET 2 MG PO (19:28)
--- NOTE | 2023-11-24 03:34 | PC.NURSE ---
awake at 2330, medicated slept until 0315. offered to pursue medication to help client, peioridcally patient makes swearing yelping loud outbursts, very mildly redirectable. client c/o dental discomfort, asked for analgesic, them recanted request.
--- NOTE | 2023-11-24 03:37 | PC.NURSE ---
patient conveys distrustful nature in comments to staff frequently.
[2023-11-24] MEDS: OLANZapine ODT 10 MG TAB.RAPDIS TRANSLINGU (05:39)
--- NOTE | 2023-11-24 05:49 | PC.NURSE ---
allowing client to shower a little early as client is restless-will do addl checks as client was recently medicated.
[2023-11-24] MEDS: Ibuprofen 600 MG TABLET PO ×2 (07:23→17:24)
[2023-11-24 08:24] VITALS: BP 109/56; PULSE 99; RESP 20; TEMP 36.8; O2SAT 98
[2023-11-24] MEDS: risperiDONE 1 MG TABLET PO ×2 (08:29→19:34)
--- NOTE | 2023-11-24 09:59 | PHA.MEDREC ---
Addendum entered by Hodan Lebron RPh 11/25/23 09:15: No patient history at [facility] in [place] and [place]; being marked as unobtainable. Original Note: Pharmacy Consult ? Medication Reconciliation Pharmacy has completed the medication reconciliation. Unable to find history of medications being filled recently. [facility] has not had anything filled for over a year. [facility]. [facility] pharmacy has nothing filled since 2019. Last try can be gen however they are not open today. If patient is still here tomorrow, will have [facility] call tomorrow.
--- NOTE | 2023-11-24 11:44 | PC.NURSE ---
Belongings moved to Pod [facility]ocker 11
[2023-11-24 18:24] VITALS: BP 103/70; PULSE 87; RESP 16; TEMP 36.9; O2SAT 99
[2023-11-24] MEDS: diphenhydrAMINE HCL 25 MG CAPSULE 50 MG PO (19:34)
--- NOTE | 2023-11-25 01:27 | PC.NURSE ---
patient recently got up and asked for sandwich milk and water
[2023-11-25 05:25] VITALS: RESP 18
--- NOTE | 2023-11-25 05:37 | PC.NURSE ---
patient awoke at 0530, wanted to take a shower, expressing self with vulgarity but not directed at people per se... patient persisted and interspersed with requests for milk or water. patient was redirected when she verbally was escalating in bathroom (sounds was echoing in bathroom) patient did comply with simple, firm direction.
--- NOTE | 2023-11-25 08:15 | PC.NURSE ---
pt speaking w/ care team at this time. plan of care ongoing.
--- NOTE | 2023-11-25 08:42 | PC.NURSE ---
pt refused medication administration.
--- NOTE | 2023-11-25 11:17 | PC.NURSE ---
pt requesting flonase d/t feeling stuffy/having runny nose. provider notified/aware of pt's request.
[2023-11-25] MEDS: Fluticasone Propionate Nasal 16 GM SPRAY 2 SPRAY NOSTRIL-B (11:55)
--- NOTE | 2023-11-25 11:56 | PC.NURSE ---
requested medication delivered from pharmacy/administered. pt remains in manic phase - continuously walking at fast speed throughout the pod demanding requests and to speak and see people from the care team. pt continuously stating that she wants to be discharged. demanding to speak w/ care team. pt aware that she is on a section 12 and is not able to leave at this time. care team bedside speaking w/ pt per pt's request. pt then presents to nurses station after conversation w/ care team. pt stating that she wants to speak with someone higher up. pt then re-spoke w/ care team in regards to plan of care. pt notified that she is unable to leave and will be admitted for further evaluation by psychiatrist. pt agreeable to plan of care at this time. plan of care ongoing.
--- NOTE | 2023-11-25 14:00 | PC.NURSE ---
pt continues to remain agitated/walking throughout pod. continues to decline prn medication for agitation. pt continues to swear at staff and use profanity and flip staff off. security called in attempts to de-escalate pt.
--- NOTE | 2023-11-25 14:48 | PC.NURSE ---
pt pacing about BH pod, acting for bed sheets, games, watr- items provided
[2023-11-25 15:09] VITALS: BP 104/80; PULSE 111; RESP 18; TEMP 36.9; O2SAT 98
[2023-11-25] MEDS: OLANZapine 10 MG VIAL IM ×2 (16:04→22:22)
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
--- NOTE | 2023-11-25 19:49 | PC.NURSE ---
Patient restless and agitated, pacing around the pod, swearing at staff. Patient states if she does not get a toasted ham and cheese sandwich she is going to freak out. Patient has been demanding multiple items from staff, stating if she does not get it she is going to flip shit over and punch people in the face. This RN as well mental health counselors attempting to talk with patient and provide support, patient not willing to listen. continues to be manic and pacing. Patient states she is hungry, given sandwich as requested, continues to pace around.
--- NOTE | 2023-11-25 21:15 | PC.NURSE ---
Patient again increasingly agitated, pacing around. c/o bilateral foot pain, this RN assessed patients feet and physician made aware. Patient swearing at this RN, offered patient her evening medication as well as the prn cough medication she requested and patient refusing both.
[2023-11-25] MEDS: Fluticasone Propionate Nasal 16 GM SPRAY 1 SPRAY NOSTRIL-B (21:37)
--- NOTE | 2023-11-25 21:39 | PC.NURSE ---
patient continues to refuse risperdal, med returned to [facility]
--- NOTE | 2023-11-25 22:26 | PC.NURSE ---
Patient agitated, pacing, slamming phone, states she feels anxious because the mental health counselors are watching her. patient requesting to talk to CARE team. Salbador to bedside, attempted to deescalate patient, patient stating if this continues she is going to tackle someone. staff moved away from patients doorway. This RN speaking with patient, patient agreeable to IM zyprexa but states she will not take pills. physician aware and patient medicated as ordered
[2023-11-25] MEDS: diphenhydrAMINE HCL 25 MG CAPSULE 50 MG PO (23:16)
[2023-11-25] MEDS: HaloperidoL 5 MG TABLET PO (23:16)
[2023-11-25] MEDS: LORazepam 1 MG TABLET 2 MG PO (23:16)
--- NOTE | 2023-11-26 | ECG_ITS ---
Test Reason : rule out QTC prolongation Blood Pressure : / mmHG Vent. Rate : 104 BPM Atrial Rate : 104 BPM P-R Int : 138 ms QRS Dur : 084 ms QT Int : 324 ms P-R-T Axes : 045 087 043 degrees QTc Int : 426 ms Sinus tachycardia Otherwise normal ECG When compared with ECG of 02-FEB-2023 01:44, Non-specific change in ST segment in Inferior leads ST elevation has replaced ST depression in Anterior leads Referred By: Daniel Browne Electronically Signed By:DELVIS SANTIZO
[2023-11-26 07:53] VITALS: BP 116/71; PULSE 94; RESP 18; TEMP 36.5; O2SAT 100
--- NOTE | 2023-11-26 08:13 | PC.NURSE ---
Assumed care of patient at 0645, patient appears to be mildly agitated this am, pacing, unable to maintain calm demeanor but is easily redirectable. Pt is cooperative at this time, requesting shower. Continue plan of care for inpatient bedsearch
[2023-11-26] MEDS: Haloperidol Lactate 5 MG/ML VIAL 10 MG IM (09:18)
[2023-11-26] MEDS: diphenhydrAMINE HCL 50 MG/ML VIAL IM (09:18)
[2023-11-26] MEDS: LORazepam 2 MG/ML VIAL IM (09:18)
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
[2023-11-26 12:05] VITALS: BP 115/68; PULSE 104; RESP 18; TEMP 36.8; O2SAT 95
[2023-11-26 12:28] LABS: PCP Confirmation GC/MS Urine NEGATIVE
[2023-11-26] MEDS: Throat Lozenge, Medicated LOZENGE 1 LOZENGE MUCOUS MEM ×2 (13:25→15:00)
--- NOTE | 2023-11-26 13:53 | PC.NURSE ---
pt refused flu vaccine at this time
[2023-11-26 13:54] VITALS: BMI 27.4
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
[2023-11-26 14:48] LABS: Appearance Urine Clear; Color Urine Yellow; Glucose Urine UA Negative (Negative); Leukocyte Esterase Urine Negative (Negative); Nitrite Urine Negative (Negative); PH 5.5 (5.0-9.0); Urine Blood Negative (Negative); Urine Ketones Negative (Negative); Urine Protein Negative (Neg-Trace)
[2023-11-26] MEDS: Lithium Carbonate ER 450 MG TABLET.ER PO (15:00)
[2023-11-27] MEDS: risperiDONE 1 MG TABLET PO ×2 (01:57→08:02)
[2023-11-27] MEDS: Lithium Carbonate ER 450 MG TABLET.ER PO ×3 (01:57→20:04)
[2023-11-27] MEDS: Acetaminophen 325 MG TABLET 650 MG PO ×3 (01:58→20:04)
[2023-11-27] MEDS: traZODone HCL 50 MG TABLET PO (01:58)
[2023-11-27] MEDS: OLANZapine ODT 10 MG TAB.RAPDIS TRANSLINGU (01:59)
[2023-11-27] MEDS: Magnesium Hydrox/Alum Hydrox 30 ML ORAL.SUSP PO ×2 (02:00→18:42)
[2023-11-27 02:01] VITALS: BP 125/66; PULSE 89; RESP 16; TEMP 36.7; O2SAT 100
--- NOTE | 2023-11-27 02:23 | PC.NURSE ---
11/27/23 Gave pt scheduled HS risperdal and lithium at 0158 d/t pt was asleep during normal administered time of 2100. Dr. Carver ok'd to give at this time.
--- NOTE | 2023-11-27 03:07 | PC.NURSE ---
11/27/23 At 0130 Pt woke up and reported sharp stabbing pains in her lower abdomen. Pt reported I have thrown up two times and feel really sick . Gave PRNs for pain and nausea. Contacted Dr. Carver.
[2023-11-27 07:51] VITALS: BP 144/81; PULSE 102; RESP 16; TEMP 36.4; O2SAT 98
[2023-11-27] MEDS: Fluticasone Propionate Nasal 16 GM SPRAY 1 SPRAY NOSTRIL-B ×2 (08:08→20:22)
[2023-11-27] MEDS: Throat Lozenge, Medicated LOZENGE 1 LOZENGE MUCOUS MEM ×7 (08:37→19:59)
--- NOTE | 2023-11-27 09:17 | P.PNPSI_ITS ---
Subjective Subjective Date of Service: 11/27/23 Reason For Visit: yudi Subjective Notes: Conditional Voluntary Interim History: Pt slept most of the night. She reported locked jaw, which she reported while in ED, and even prior to antipsychotic use. She was given ativan 2mg IM, later was given cogentin 2mg po. One possibility is dystonia from haldol. She has been on risperidone in the past with no dystonic rx. But also, while pt in the ED and was seen by his life underwriter she had reported lock jaw for few days prior to coming to hospital. She has also reported abdominal pain. ?tetanus. she is on the street. She denies recent wounds. Diagnostics Vital Signs (24Hr): Vital Signs - 24 hr 11/26/23 12:05 11/27/23 02:01 11/27/23 07:51 Temperature 98.2 F 98.1 F 97.5 F Pulse Rate 104 H 89 102 H Respiratory Rate 18 16 16 Blood Pressure 115/68 125/66 144/81 H Pulse Oximetry 95 100 98 Oxygen Delivery Method Room Air Room Air Room Air BMI result Body Mass Index 27.4 Labs 11/21/23 20:34 11/21/23 20:34 Labs: Laboratory Results - last 48 hr 11/21/23 11/26/23 20:42 14:36 Urine Color Yellow Urine Appearance Clear Urine pH 5.5 Ur Specific [place] 1.020 Urine Protein Negative Urine Glucose (UA) Negative Urine Ketones Negative Urine Blood Negative Urine Nitrite Negative Ur Leukocyte Esterase Negative Phencyclidine Confirm NEGATIVE Imaging Radiology Impressions: ITS Impressions Hand X-Ray 11/24/23 07:55 IMPRESSION: No fracture. Electronically signed by: Eric Arzola MD 11/24/2023 08:11 AM EDT Medications Medications Current Medications Acetaminophen (Acetaminophen 325 Mg Tablet) 650 mg PO Q6H PRN PRN Reason: Headache/Pain Mild Scale (1-3) Last Admin: 11/27/23 01:58 Dose: 650 mg Al Hydroxide/Mg Hydroxide (Magnesium Hydrox/Alum Hydrox 30 Ml Oral.Susp) 30 ml PO Q6H PRN PRN Reason: Heartburn/Nausea Last Admin: 11/27/23 02:00 Dose: 30 ml Benzocaine (Throat Lozenge, Medicated Lozenge) 1 lozenge MUCOUS MEM Q1H PRN PRN Reason: Sore Throat Last Admin: 11/27/23 08:37 Dose: 1 lozenge Fluticasone Propionate (Fluticasone Propionate Nasal 16 Gm [place]) 1 spray NOSTRIL-B DAILY [facility] Last Admin: 11/27/23 08:08 Dose: 1 spray [place] Carbonate ([place] Carbonate Er 450 Mg Tablet.Er) 450 mg PO BID [facility] Last Admin: 11/27/23 08:02 Dose: 450 mg Magnesium Hydroxide (Milk Of Magnesia 30 Ml Oral.Susp) 30 ml PO DAILY PRN PRN Reason: Constipation Nicotine Polacrilex (Nicotine Polacrilex 2 Mg Gum) 4 mg BUCCAL Q2H PRN PRN Reason: Nicotine Cravings Olanzapine (Olanzapine Odt 10 Mg Tab.Rapdis) 10 mg TRANSLINGU Q6H PRN PRN Reason: agitation Last Admin: 11/27/23 01:59 Dose: 10 mg Risperidone (Risperidone 1 Mg Tablet) 1 mg PO BID [facility] Last Admin: 11/27/23 08:02 Dose: 1 mg Trazodone HCl (Trazodone Hcl 50 Mg Tablet) 50 mg PO BEDTIME MRX1 PRN PRN Reason: Insomnia Last Admin: 11/27/23 01:58 Dose: 50 mg Allergies Allergies Allergy/AdvReac Type Severity Reaction Status Date / Time No Known Allergies Allergy Unverified 11/22/23 10:14 [No Known Allergies*] Assessment & Plan Assessment & Plan (1) Bipolar 1 disorder, manic, moderate: Status: Acute Code(s): F31.12 - Bipolar disorder, current episode manic without psychotic features, moderate (2) Cocaine use disorder: Status: Acute Code(s): F14.10 - Cocaine abuse, uncomplicated (3) Homeless single person: Status: Acute Code(s): Z59.00 - Homelessness unspecified Plan 11/26 lock jaw that she has been reporting even prior to ED visit, less likely dystonic reaction from antipsychotic, most likely haldol. She has been on risperidone in the past with no dystonic rx. will add hospitalist consult to r/o cause no related to dystonic rx from antipsychotic. Reason for continued inpatient stay Substantial Risk for: inability to function Time Spent With Patient Time: Total time managing care of this patient today ____ minutes.
--- NOTE | 2023-11-27 09:44 | MHC.CLN ---
NUTRITION CONSULT FOR PATIENT REPORTS 30# WEIGHT LOSS IN PAST FEW WEEKS. REVIEW OF WEIGHT HX SHOWS WEIGHT ON 08/16/23=77.4 KG. WEIGHT LOSS X 3 MONTHS NOT SIGNIFICANT, -6#, 3.7%. PLEASE CONSULT RD IF POOR PO.
[2023-11-27] MEDS: LORazepam 2 MG/ML VIAL IM (10:03)
[2023-11-27 10:17] LABS: Estimated Average Glucose 108 mg/dL; Hemoglobin A1C 118.4359 umol/L; Hemoglobin A1c % 5.4 % (<6.0); Total Hemoglobin (HGBA1C) 3285.4335 umol/L
[2023-11-27 10:22] LABS: Cholesterol 142 mg/dL (<200); HDL Cholesterol 49 mg/dL (>40); LDL Cholesterol Calculated 78 mg/dL (<100); Triglycerides 76 mg/dL (<150)
[2023-11-27 10:40] LABS: Free T4 (Free Thyroxine) 0.97 ng/dL (0.71-1.85); Thyroid Stimulating Hormone 0.86 uIU/mL (0.32-4.0)
[2023-11-27 10:51] LABS: Folate 8.3 ng/mL (> or = 4.0); Vitamin B12 278 pg/mL (200-900)
[2023-11-27] MEDS: Benztropine Mesylate 1 MG TABLET 2 MG PO (10:51)
--- NOTE | 2023-11-27 14:57 | PM.EVENT ---
Event Note Date of Service: 11/27/23 Event Note: Pt is a 23-year-old female with a PMH significant for bipolar disorder who was admitted to [facility] for acute psychosis/yudi with dysregulated and belligerent behavior. Hospitalist consult for evaluation for lock jaw with question of tetanus. Patient is acutely manic at time of interview and exam and not a reliable historian, but overall calm and cooperative. The patient appears somatically fixated and has multiple complaints, including all-over body pain especially legs and feet, as well as intermittent jaw pain and locked jaw. Pt reports this can occur either when jaw is open or closed, lasts approximately 10 minutes at a time, and occurs multiple time per hour for the past few days. Timeline is uncertain, but could be up to 7 days in duration. Pt reports punching a window at home with resulting open laceration on right hand. Otherwise no known injuries. Reports seen PCP within last year, though is when last Tdap booster was given. Physical exam reveals 2 cm laceration dorsal aspect right hand just proximal to 3rd MCP. See picture below. Appears well healing without erythema or warmth. No indication of infection. ROM and strength of hand preserved. Diffuse tenderness to palpation of jaw, face, and neck. However, patient also seen speaking freely without difficulty. Given pt's clinical picture and physical exam findings, but especially since pt reports intermittent symptoms, suspicion for tetanus is very low. Pt is currently actively manic and somatically preoccupied. Symptoms likely either due to psychosis or from antipsychotic medication use. No indication for additional tetanus treatment or workup. Will sign off for now. Please re-consult if any acute issue or need arises. Time Spent With Patient Time: Total time managing care of this patient today ____ minutes.
[2023-11-27 19:30] VITALS: BP 130/64; PULSE 95; RESP 16; TEMP 36.7; O2SAT 99
[2023-11-27] MEDS: Nicotine Polacrilex 2 MG GUM 4 MG BUCCAL (20:22)
[2023-11-28] MEDS: Magnesium Hydrox/Alum Hydrox 30 ML ORAL.SUSP PO (04:52)
[2023-11-28] MEDS: Acetaminophen 325 MG TABLET 650 MG PO ×2 (06:14→15:19)
[2023-11-28 07:00] VITALS: BMI 27.2
[2023-11-28] MEDS: Throat Lozenge, Medicated LOZENGE 1 LOZENGE MUCOUS MEM ×5 (07:45→19:40)
[2023-11-28] MEDS: Fluticasone Propionate Nasal 16 GM SPRAY 1 SPRAY NOSTRIL-B (08:51)
[2023-11-28] MEDS: OLANZapine ODT 10 MG TAB.RAPDIS TRANSLINGU ×2 (08:52→10:37)
[2023-11-28] MEDS: Lithium Carbonate ER 450 MG TABLET.ER PO ×2 (08:52→21:16)
[2023-11-28] MEDS: LORazepam 1 MG TABLET 2 MG PO ×2 (10:37→15:18)
--- NOTE | 2023-11-28 15:21 | P.PNPSI_ITS ---
Subjective Subjective Date of Service: 11/28/23 Reason For Visit: yudi Interim History: observed with agitated pacing and elevated voice in the milieu. on interview, calm and cooperative. does not wish to stay beyond tomorrow. willing to have lithium level checked tonight. per staff, 3-day up tomorrow. labile, agitated. ativan, cogentin IM after c/o lockjaw. intrusive, demanding, growling when needs not met. pretending to vomit. Mental Status Exam Mental Status Exam Narrative: Appearance: casually groomed, fair hygiene, in NAD Behavior: calm, cooperative Psychomotor: PMA in milieu, none with MD. Speech: clear, normal rate/rhythm/volume, spontaneous TP: linear TC: no signs of psychosis, feeling calmer with medications. Mood: better Affect: congruent, non labile SI: none expressed HI: none expressed AH/VH: none expressed Delusions: none Insight/judgment: improving x 2. Memory/cog: alert, oriented x 3. grossly intact to conversational testing. Diagnostics Vital Signs (24Hr): Vital Signs - 24 hr 11/27/23 19:30 Temperature 98.1 F Pulse Rate 95 Respiratory Rate 16 Blood Pressure 130/64 Pulse Oximetry 99 Oxygen Delivery Method Room Air BMI result Body Mass Index 27.4 Labs 11/21/23 20:34 11/21/23 20:34 Labs: Laboratory Results - last 48 hr 11/27/23 09:23 Estimat Average Glucose 108 Hemoglobin A1c % 5.4 Triglycerides 76 Cholesterol 142 LDL Cholesterol, Calc 78 HDL Cholesterol 49 Vitamin B12 278 Folate 8.3 TSH 0.86 Free T4 0.97 Imaging Radiology Impressions: ITS Impressions Hand X-Ray 11/24/23 07:55 IMPRESSION: No fracture. Electronically signed by: Eric Arzola MD 11/24/2023 08:11 AM EDT Medications Medications Current Medications Acetaminophen (Acetaminophen 325 Mg Tablet) 650 mg PO Q6H PRN PRN Reason: Headache/Pain Mild Scale (1-3) Last Admin: 11/28/23 06:14 Dose: 650 mg Al Hydroxide/Mg Hydroxide (Magnesium Hydrox/Alum Hydrox 30 Ml Oral.Susp) 30 ml PO Q6H PRN PRN Reason: Heartburn/Nausea Last Admin: 11/28/23 04:52 Dose: 30 ml Benzocaine (Throat Lozenge, Medicated Lozenge) 1 lozenge MUCOUS MEM Q1H PRN PRN Reason: Sore Throat Last Admin: 11/28/23 11:31 Dose: 1 lozenge Fluticasone Propionate (Fluticasone Propionate Nasal 16 Gm [place]) 1 spray NOSTRIL-B BID [facility] Last Admin: 11/28/23 08:51 Dose: 1 spray [place] Carbonate ([place] Carbonate Er 450 Mg Tablet.Er) 450 mg PO BID [facility] Last Admin: 11/28/23 08:52 Dose: 450 mg Lorazepam (Lorazepam 1 Mg Tablet) 2 mg PO Q4H PRN PRN Reason: agitation Last Admin: 11/28/23 10:37 Dose: 2 mg Magnesium Hydroxide (Milk Of Magnesia 30 Ml Oral.Susp) 30 ml PO DAILY PRN PRN Reason: Constipation Nicotine Polacrilex (Nicotine Polacrilex 2 Mg Gum) 4 mg BUCCAL Q2H PRN PRN Reason: Nicotine Cravings Last Admin: 11/27/23 20:22 Dose: 4 mg Olanzapine (Olanzapine Odt 10 Mg Tab.Rapdis) 10 mg TRANSLINGU Q4H PRN PRN Reason: agitation Last Admin: 11/28/23 10:37 Dose: 10 mg Olanzapine (Olanzapine 10 Mg Tablet) 20 mg PO BEDTIME DEB Trazodone HCl (Trazodone Hcl 50 Mg Tablet) 50 mg PO BEDTIME MRX1 PRN PRN Reason: Insomnia Last Admin: 11/27/23 01:58 Dose: 50 mg Allergies Allergies Allergy/AdvReac Type Severity Reaction Status Date / Time haldol AdvReac Intermediate dystonia Uncoded 11/27/23 10:28 Assessment & Plan Assessment & Plan (1) Bipolar 1 disorder, manic, moderate: Status: Acute Code(s): F31.12 - Bipolar disorder, current episode manic without psychotic features, moderate (2) Cocaine use disorder: Status: Acute Code(s): F14.10 - Cocaine abuse, uncomplicated (3) Homeless single person: Status: Acute Code(s): Z59.00 - Homelessness unspecified Plan 11/25: continue risperidone 1 BID. start lithium 450 BID. 11/26: lock jaw that she has been reporting even prior to ED visit, less likely dystonic reaction from antipsychotic, most likely haldol. She has been on risperidone in the past with no dystonic rx. will add hospitalist consult to r/o cause no related to dystonic rx from antipsychotic. 11/27: 3-day up tomorrow, pt will not stay. check lithium level tonight. risperidone DCed, pt amenable to trial on zyprexa. Reason for continued inpatient stay Substantial Risk for: harm to self, harm to others and inability to function Time Spent With Patient Time: Total time managing care of this patient today _25___ minutes.
[2023-11-28 20:05] VITALS: BP 148/71; PULSE 98; RESP 18; TEMP 36.4; O2SAT 100
[2023-11-28] MEDS: OLANZapine 10 MG TABLET 20 MG PO (21:16)
[2023-11-29] MEDS: Throat Lozenge, Medicated LOZENGE 1 LOZENGE MUCOUS MEM ×3 (04:54→09:39)
[2023-11-29] MEDS: Acetaminophen 325 MG TABLET 650 MG PO (04:54)
--- NOTE | 2023-11-29 07:02 | PC.NURSE ---
Length of stay letter generated by social work supervisor and placed with discharge paperwork
[2023-11-29 09:13] VITALS: BP 129/70; PULSE 89; RESP 16; TEMP 36.6
[2023-11-29] MEDS: LORazepam 1 MG TABLET 2 MG PO (09:15)
[2023-11-29] MEDS: Fluticasone Propionate Nasal 16 GM SPRAY 1 SPRAY NOSTRIL-B (09:15)
[2023-11-29] MEDS: Lithium Carbonate ER 450 MG TABLET.ER PO (09:16)
[2023-11-29] MEDS: OLANZapine ODT 10 MG TAB.RAPDIS TRANSLINGU (09:16)
[2023-11-29 10:01] LABS: Lithium 0.44 mmol/L (0.60-1.20)
[2023-11-29 10:06] LABS: Anion Gap 11 (12-20); Blood Urea Nitrogen 15 mg/dL (9-16); Calcium 8.9 mg/dL (8.4-10.2); Carbon Dioxide 25 mmol/L (22-29); Chloride 106 mmol/L (96-108); Creatinine Clr Calc Pharmacy 115.4; Estimated Glomerular Filt Rate > 60; Glucose Random 100 mg/dL (60-115); Potassium 4.1 mmol/L (3.3-5.1); Sodium 138 mmol/L (135-145)
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
== END 2023-11-29 11:10 | disposition home or self-care (01) | DRG 753 ==
LOC: HO.ED 11-26 08:18 → HO.PADLT16 11-26 11:39
PROVIDERS: Emergency Medicine; Internal Medicine; Physician Assistant Medical; Admitting Provider Psychiatry & Neurology Psychiatry; Emergency Provider Emergency Medicine Emergency Medical Services; Visit Provider Psychiatry & Neurology Psychiatry
DX: F31.12 Bipolar disorder, current episode manic without psychotic features, moderate (principal); F14.10 Cocaine abuse, uncomplicated; Z59.02 Unsheltered homelessness; Z79.899 Other long term (current) drug therapy
CPT/HCPCS: 36415; 73120; 80048; 80053; 80061; 80178; 80307; 81003; 82607; 82746; 83036; 83690; 83992; 84439; 84443; 84702; 85025; 93005; 99285; J1200; J1630; J2060; J2250; J2359; S9485

== ENCOUNTER → 2023-11-22 03:30 | Outpatient (BNV) | payer OTHER, SELFPAY | PROVIDERS: Emergency Provider Internal Medicine; Visit Provider Psychiatry & Neurology Psychiatry | DX: F31.12 Bipolar disorder, current episode manic without psychotic features, moderate (principal); F14.10 Cocaine abuse, uncomplicated; Z59.00 Homelessness unspecified | CPT/HCPCS: 99232; 99233; 99282 ==

== ENCOUNTER → 2023-11-26 09:28 | Outpatient (BNV) | payer MEDICAID, SELFPAY | PROVIDERS: Admitting Provider Psychiatry & Neurology Psychiatry; Emergency Provider Emergency Medicine Emergency Medical Services; Visit Provider Internal Medicine | DX: R00.0 Tachycardia, unspecified (principal) | CPT/HCPCS: 93010 ==

== ENCOUNTER 2023-12-02 23:32 | Inpatient (IN) | payer OTHER, SELFPAY ==
--- NOTE | 2023-12-02 23:39 | ED_ITS ---
HPI - Overdose General Chief Complaint: Overdose Stated Complaint: si overdose Time Seen by Provider: 12/02/23 23:34 Source: patient Mode of arrival: EMS Limitations: no limitations History of Present Illness ED Provider: sandra ALBRECHT Narrative: Patient's history of cocaine use disorder bipolar psychosis on lithium and olanzapine brought by EMS for overdose patient keeps changing her history says that 5 tablets she took in the morning and 5 in the evening of her regular medications later she says she took 5 tablets of Tylenol no alcohol use no cocaine use denies any SI asking for food on arrival Related Data Previous Rx's ?Medication ?Instructions ?Recorded fluticasone propionate 50 1 spray intranasal BID 30 days #16 11/29/23 mcg/actuation nasal grams spray,suspension lithium carbonate 450 mg 450 mg PO BID 30 days #60 tabs 11/29/23 tablet,extended release nicotine (polacrilex) 2 mg gum 4 mg buccal Q2H PRN Nicotine 11/29/23 Cravings 30 days #120 ea olanzapine 10 mg tablet 20 mg (2 x 10 mg) PO BEDTIME 30 11/29/23 days #60 tabs Allergies Allergy/AdvReac Type Severity Reaction Status Date / Time haldol AdvReac Intermediate dystonia Uncoded 12/02/23 23:41 Review of Systems 2 Review of Systems: Yes all other systems are reviewed and are negative PMFSH Past Medical History Medical History Cocaine use disorder Bipolar 1 disorder, mixed, severe No known health problems Social History Social History Household Members: None Housing: Homeless Do you presently have visiting nurse or other home services: No Unable to assess alcohol history related to: Refusing to respond Alcohol intake: current Alcohol intake frequency: a few times a month Patient Tobacco Use Status: Never used Tobacco Smoked in Last 30 Days: No Second Hand Smoke Exposure: No Use of substances other than those prescribed or required for medical reasons: No Substance Use Type: Marijuana Advance Directives: No Advance Directives Information Provided: No Do you have a plan to hurt others: No Plan service: No Sexual orientation: Unable to collect Physical Exam 2 Vital Signs: Vital Signs: Last Vital Signs Temp 98.2 F 12/02/23 23:41 Pulse 71 12/03/23 04:26 Resp 14 12/03/23 04:26 BP 100/52 L 12/03/23 04:26 Pulse Ox 100 12/03/23 04:26 O2 Del Method Room Air 12/03/23 04:26 BMI result Body Mass Index 28.0 Appearance: Alert. Oriented X3. No acute distress. anxious Eyes: PERRLA, No Nystagmus ENT: Pharynx normal. Oral Mucosa moist Neck: Normal inspection. Neck supple. CVS: Normal heart rate and rhythm. Pulses normal. Respiratory: No respiratory distress. Equal air entry bilateral, no wheezing/rales/rhonchi Abdomen: Soft and nontender. Bowel sounds are present, no mass palpable, no CVA tenderness Skin: Skin warm and dry. Normal skin color. Normal skin turgor. Extremities: No lower extremity edema. No calf tenderness Neuro: Oriented X 3. No motor deficit. Medical Decision Making Medical Decision Making [facility] Narrative: Patient with psychotic disorder on lithium and olanzapine came with vague complaints for possible overdose changing history no signs of intoxication was noticed patient is fully awake and anxious vitals are stable will consult care team for further evaluation patient denied any cocaine use Differential Diagnosis Differential Diagnoses: The differential diagnosis associated with the presentation includes Lab Data [facility] Lab Attestation statement: I reviewed the patient's lab results. 12/03/23 00:16 12/03/23 00:16 Labs: Lab Results 12/03/23 12/03/23 Range/Units 00:16 00:21 WBC 9.7 (4.8-10.8) X10*3/uL RBC 3.57 L (4.20-5.50) X10*6/uL Hgb 10.9 L (12.0-16.0) g/dl Hct 32.5 L (37.0-47.0) % MCV 91.0 (80.0-98.0) fL MCH 30.5 (27.0-33.0) pg MCHC 33.5 (31.0-35.0) g/dl RDW 14.0 (11.0-16.0) % Plt Count 320 (160-400) X10*3/uL MPV 9.7 (9.4-12.3) fL Immature Gran % (Auto) 0.2 (0.0-0.4) % Neut % (Auto) 52.2 (45-73) % Lymph % (Auto) 36.3 (20-40) % [place] % (Auto) 8.0 (2-11) % Eos % (Auto) 3.0 (0-4) % Baso % (Auto) 0.3 (0-2) % Lymph # (Auto) 3.5 (1.2-4.9) X10*3/uL [place] # (Auto) 0.8 (0.1-1.2) X10*3/uL Eos # (Auto) 0.3 (0.0-0.4) X10*3/uL Baso # (Auto) 0.0 (0.0-0.2) X10*3/uL Abs Immat Gran (auto) 0.02 (0.00-0.03) X10*3/uL Absolute Neuts (auto) 5.1 (2.0-8.3) x10*3/uL Absolute Nucleated RBC 0.000 (0.0-0.012) X10*3/uL Nucleated RBC % (auto) 0.0 (0.0-0.2) /100WBC Sodium 140 (135-145) mmol/L Potassium 4.2 (3.3-5.1) mmol/L Chloride 112 H (96-108) mmol/L Carbon Dioxide 24 (22-29) mmol/L Anion Gap 8 L (12-20) BUN 18 H (9-16) mg/dL Creatinine 1.02 (0.5-1.4) mg/dL Estim Creat Clear Calc 88.3 Estimated GFR > 60 Random Glucose 104 (60-115) mg/dL Calcium 8.7 (8.4-10.2) mg/dL Magnesium 2.1 (1.6-2.6) mg/dL Total Bilirubin 0.3 (0.0-1.0) mg/dL AST 26 (5-31) U/L ALT 29 (0-31) U/L Alkaline Phosphatase 66 (39-117) U/L Total Protein 6.1 L (6.5-8.0) g/dL Albumin 3.8 (3.5-5.0) g/dL Beta HCG, Quant < 2 mIU/mL Urine Color Yellow Urine Appearance Clear Urine pH 8.0 (5.0-9.0) Ur Specific [place] 1.025 (1.005-1.025) Urine Protein Negative (Neg-Trace) mg/dL Urine Glucose (UA) Negative (Negative) mg/dL Urine Ketones Negative (Negative) mg/dL Urine Blood Negative (Negative) Urine Nitrite Negative (Negative) Ur Leukocyte Esterase Negative (Negative) Salicylates < 5.0 L (15-30) mg/dL Urine Opiates Screen Not Detected (Not Detect) Ur Buprenorphine Scrn Not Detected (Not Detect) ng/mL Ur Oxycodone Screen Not Detected (Not Detect) ng/mL Urine Methadone Screen Not Detected (Not Detect) ng/mL Urine Fentanyl Screen Not Detected (Not Detect) Acetaminophen < 3 (<30) mcg/mL Ur Barbiturates Screen Not Detected (Not Detect) Ur Phencyclidine Scrn Not Detected (Not Detect) Ur Amphetamines Screen Not Detected (Not Detect) U Benzodiazepines Scrn Not Detected (Not Detect) [place] 0.30 L (0.60-1.20) mmol/L Urine Cocaine Screen Not Detected (Not Detect) U Marijuana (THC) Screen POSITIVE H (Not Detect) Ethyl Alcohol < 10 mg/dL Independent Interpretation I performed an independent interpretation of an: EKG Interpretation: Normal sinus rhythm heart rate 68 beats per minute normal interval normal axis QTC 401 milliseconds no acute ischemia Discharge Plan Discharge Clinical Impression: Bipolar 1 disorder, manic, moderate, Drug overdose Patient Disposition: Still a Patient Prescriptions: No Action nicotine (polacrilex) 2 mg Gum 4 mg buccal Q2H PRN (Reason: Nicotine Cravings) 30 Days Qty: 120 0RF olanzapine 10 mg Tablet 20 mg PO BEDTIME 30 Days Qty: 60 0RF lithium carbonate 450 mg Tablet Extended Release 450 mg PO BID 30 Days Qty: 60 0RF fluticasone propionate 50 mcg/actuation [place],Suspension 1 spray intranasal BID 30 Days Qty: 16 0RF Print Language: Burkinan
[2023-12-02 23:41] VITALS: BP 113/50; PULSE 70; PULSE 82; RESP 18; TEMP 36.8; O2SAT 98; O2SAT 99; BMI 28.0
--- NOTE | 2023-12-02 23:41 | ECG_ITS ---
Test Reason : OVERDOSE Blood Pressure : / mmHG Vent. Rate : 068 BPM Atrial Rate : 068 BPM P-R Int : 136 ms QRS Dur : 090 ms QT Int : 378 ms P-R-T Axes : 055 073 051 degrees QTc Int : 401 ms Normal sinus rhythm with sinus arrhythmia Normal ECG When compared with ECG of 26-NOV-2023 09:28, Vent. rate has decreased BY 36 BPM Referred By: Myles Gannon Electronically Signed By:Brennen Adams
[2023-12-03] VITALS (13 sets, daily range): BP systolic 100–118; BP diastolic 52–73; PULSE 71–91; RESP 14–18; TEMP 36.7; O2SAT 99–100
[2023-12-03 00:27] LABS: MANUAL DIFF FLAG NO
[2023-12-03 00:31] LABS: Basophils Percent Auto 0.3 % (0-2); Eosinophils Absolute Auto 0.3 X10*3/uL (0.0-0.4); Hematocrit 32.5 % (37.0-47.0); Hemoglobin 10.9 g/dl (12.0-16.0); Imm Gran Abs Auto 0.02 X10*3/uL (0.00-0.03); Imm Gran Pct Auto 0.2 % (0.0-0.4); Lymphocytes Absolute Auto 3.5 X10*3/uL (1.2-4.9); Lymphocytes Percent Auto 36.3 % (20-40); Mean Corpuscular HGB Conc 33.5 g/dl (31.0-35.0); Mean Corpuscular Hemoglobin 30.5 pg (27.0-33.0); Mean Platelet Volume 9.7 fL (9.4-12.3); Monocytes Absolute Auto 0.8 X10*3/uL (0.1-1.2); Neutrophils Absolute Auto 5.1 x10*3/uL (2.0-8.3); Neutrophils Percent Auto 52.2 % (45-73); Platelet Count 320 X10*3/uL (160-400); Red Blood Count 3.57 X10*6/uL (4.20-5.50); White Blood Count 9.7 X10*3/uL (4.8-10.8)
[2023-12-03 00:37] LABS: Appearance Urine Clear; Color Urine Yellow; Glucose Urine UA Negative (Negative); Leukocyte Esterase Urine Negative (Negative); Nitrite Urine Negative (Negative); Specific Gravity - Urine 1.025 (1.005-1.025); Urine Blood Negative (Negative); Urine Ketones Negative (Negative); Urine Protein Negative (Neg-Trace)
[2023-12-03 00:56] LABS: Amphetamine Screen Urine Not Detected (Not Detect); Barbiturates, Urine Not Detected (Not Detect); Benzodiazepines Screen Urine Not Detected (Not Detect); Buprenorphine Scr Not Detected (Not Detect); Cannabinoid Screen Urine POSITIVE (Not Detect); Cocaine Screen Urine Not Detected (Not Detect); Fentanyl, urine Not Detected (Not Detect); Methadone Screen, Urine Not Detected (Not Detect); Opiate Screen Urine Not Detected (Not Detect); Oxycodone Screen Urine Not Detected (Not Detect); Phencyclidine Screen Urine Not Detected (Not Detect)
[2023-12-03 00:57] LABS: Acetaminophen LAB < 3 mcg/mL (<30); Salicylate < 5.0 mg/dL (15-30)
[2023-12-03 01:05] LABS: Alanine Aminotransferase 29 U/L (0-31); Albumin Level 3.8 g/dL (3.5-5.0); Alkaline Phosphatase 66 U/L (39-117); Anion Gap 8 (12-20); Aspartate Amino Transferase 26 U/L (5-31); Bilirubin Total 0.3 mg/dL (0.0-1.0); Blood Urea Nitrogen 18 mg/dL (9-16); Calcium 8.7 mg/dL (8.4-10.2); Carbon Dioxide 24 mmol/L (22-29); Chloride 112 mmol/L (96-108); Creatinine Clr Calc Pharmacy 88.3; Estimated Glomerular Filt Rate > 60; Ethanol < 10 mg/dL; Glucose Random 104 mg/dL (60-115); HCG Quantitative < 2 mIU/mL; Magnesium 2.1 mg/dL (1.6-2.6); Potassium 4.2 mmol/L (3.3-5.1); Sodium 140 mmol/L (135-145); Total Protein 6.1 g/dL (6.5-8.0)
--- NOTE | 2023-12-03 09:37 | PHA.MEDREC ---
Pharmacy Consult ? Medication Reconciliation Pharmacy has completed the medication reconciliation. Patient recently discharged 11/28; utilized medical record from M3 stay
[2023-12-03] MEDS: Lithium Carbonate ER 450 MG TABLET.ER PO ×2 (09:55→19:35)
[2023-12-03] MEDS: Ibuprofen 400 MG TABLET PO (09:55)
[2023-12-03] MEDS: OLANZapine 5 MG TABLET PO (09:55)
--- NOTE | 2023-12-03 10:58 | PC.NURSE ---
Assumed care of patient at 1055, patient pacing around BH pod, labile affect, questioning what the next steps in the care plan is. This RN educated patient that she is waiting for CARE team elaina
--- NOTE | 2023-12-03 12:15 | PC.NURSE ---
Pt noted to be agitated, pacing around BH pod, requesting food. pt became upset when this RN offered peanut butter and jelly sandwich, pudding or jello. Pt yelling no, I want the hot food, where yall keep the hot food, this is ridiculous . This RN educated patient that she would be receiving a lunch tray around 1300. Pt became frustrated and continued to pace around the BH pod
--- NOTE | 2023-12-03 12:29 | MHC.CARE ---
Pt seen by CARE team and will be inpatient level of care, pt being held on section 12 and is placed in chart.
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
[2023-12-03] MEDS: OLANZapine 10 MG VIAL IM (13:29)
[2023-12-03] MEDS: Midazolam HCl/PF 2 MG/2 ML VIAL 8 MG IM (13:32)
--- NOTE | 2023-12-03 14:01 | PC.NURSE ---
Patient screaming and slamming hands and wrists and with restraints intack while asking to be taken out. Patient reports I will behave if we take a hand out but then states I dont give a fuck what you think bitch
[2023-12-03] MEDS: droPERidol 5 MG/2 ML VIAL IM (14:07)
--- NOTE | 2023-12-03 14:12 | PC.NURSE ---
patient keeps smashing right hand/arm against side of bed. security called for repositioning of right arm d/t patient non compliance.
--- NOTE | 2023-12-03 15:30 | PC.NURSE ---
Patient removed from restraints, ambulating to and from bathroom with steady gait. Laid back in bed, this covered patient with blankets. Pt appears to be sleeping, respirations even and unlabored, no apparent distress
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
--- NOTE | 2023-12-03 18:31 | PC.NURSE ---
Pt continues to sleep, respirations even and unlabored, no apparent distress is noted at this time. Continue plan of care for inpatient bedsearch
--- NOTE | 2023-12-03 19:15 | PC.NURSE ---
patient appears to remain at rest much earlier today had received some medication for acting out behaviors. patient appears in no distress presently.
[2023-12-03] MEDS: OLANZapine 10 MG TABLET 20 MG PO (19:35)
--- NOTE | 2023-12-03 20:47 | PC.NURSE ---
patient took HS meds and freq requesting snacks, able to let her wants ne known.
[2023-12-04 03:12] VITALS: BP 140/89; PULSE 83; RESP 16; TEMP 36.9; O2SAT 95
[2023-12-04] MEDS: diphenhydrAMINE HCL 25 MG CAPSULE 50 MG PO (03:33)
[2023-12-04] MEDS: Nicotine Polacrilex 2 MG GUM 4 MG BUCCAL ×3 (03:33→11:02)
[2023-12-04 06:41] VITALS: RESP 16
[2023-12-04] MEDS: Lithium Carbonate ER 450 MG TABLET.ER PO ×2 (08:25→19:56)
[2023-12-04] MEDS: Fluticasone Propionate Nasal 16 GM SPRAY 1 SPRAY NOSTRIL-B ×2 (11:05→19:56)
[2023-12-04] MEDS: Loratadine 10 MG TABLET PO (12:31)
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
[2023-12-04] MEDS: LORazepam 1 MG TABLET 2 MG PO (14:02)
[2023-12-04] MEDS: OLANZapine ODT 10 MG TAB.RAPDIS TRANSLINGU (14:03)
--- NOTE | 2023-12-04 19:03 | PC.NURSE ---
patient ambulating ad simón on unit patient appears in no distress presently, making many phone calls.
--- NOTE | 2023-12-04 19:31 | PC.NURSE ---
essentially whenever client is told no patient yells to the air, swears, or attempts to antagonize staff by name calling and or vulgar language. these niggas got me fucked up'
[2023-12-04] MEDS: OLANZapine 10 MG TABLET 20 MG PO (19:56)
[2023-12-04] MEDS: Divalproex Sodium ER 500 MG TAB.ER.24H 1000 MG PO (19:57)
[2023-12-05 05:01] VITALS: BP 116/74; PULSE 85; RESP 16; TEMP 36.4; O2SAT 100
--- NOTE | 2023-12-05 06:08 | PC.NURSE ---
patient seems to be periodically provocative, tucking in her garments and trying to peek into other peers doorways, should be closely monitored.
[2023-12-05] MEDS: Lithium Carbonate ER 450 MG TABLET.ER PO (08:25)
[2023-12-05] MEDS: Fluticasone Propionate Nasal 16 GM SPRAY 1 SPRAY NOSTRIL-B ×2 (09:12→21:32)
[2023-12-05 15:18] VITALS: BMI 28.2
[2023-12-05 15:52] VITALS: BP 127/70; PULSE 100; RESP 16; TEMP 36.9; O2SAT 96
--- NOTE | 2023-12-05 16:00 | PC.ADMIT ---
This is one of multiple admissions for tis 23 y.o. woman to [facility] at [facility]. Referred by the Care Team at [facility] with Dx: Bipolar disorder, current episode manic, Cocaine abuse, uncomplicated. Arrived on unit at 1405 and placed on 15 min safety checks. Section 12A upon admission to unit. Conditional voluntary signed after meeting with Dr Palencia. Three day notice submitted, treatment team notified. Pt reports wanting discharge by Saturday12/09/23 as she has an interview with [facility]. Admission orders received from Dr Palencia, med reconciliation done by ED. No current medical issues/concerns. Reports twice monthly marijuana use, tox screen positive for marijuana. Precipitating events to admission: Pt admitted on M3 11/27/23 and discharged 11/29/23. Pt's mother refused to allow pt to stay with her upon discharge; pt homeless. Pt called 911 reporting SI, arrived at [facility] ED via ambulance. Initially reporting taking 20 sleeping pills and changed report stating she took an extra Zyprexa and Trazodone to sleep. During admission process stated she reported stupid stuff to the police and had lied about injestion of pills. States she took 1 Trazodone and 1 Zyprexa. Impulsive/reactive, low frustration tolerance noted during admission process. Lifting bladimir multiple times while in community area upon admission to unit, breasts displayed while bladimir lifted. Observed with hand down pants while speaking on phone. Redirection required by staff; accepted fairly well as compared to prior interactions. Hx medication/4pt restraint 12/03/23 while in [facility] ED for agitation/aggressive behaviors towards staff.
[2023-12-05 20:00] VITALS: BP 126/73; PULSE 100; RESP 16; TEMP 36.8; O2SAT 98
[2023-12-05] MEDS: Divalproex Sodium ER 500 MG TAB.ER.24H 1500 MG PO (20:06)
[2023-12-05] MEDS: OLANZapine 10 MG TABLET 20 MG PO (20:07)
[2023-12-05] MEDS: hydrOXYzine HCL 25 MG TABLET PO (20:07)
[2023-12-05] MEDS: Lithium Carbonate ER 300 MG TABLET.ER 600 MG PO (20:07)
[2023-12-06 07:44] VITALS: BP 135/63; PULSE 91; RESP 16; TEMP 36.4; O2SAT 98
[2023-12-06] MEDS: Fluticasone Propionate Nasal 16 GM SPRAY 1 SPRAY NOSTRIL-B ×2 (08:02→19:47)
[2023-12-06] MEDS: Lithium Carbonate ER 450 MG TABLET.ER PO (08:02)
[2023-12-06] MEDS: Acetaminophen 325 MG TABLET 650 MG PO (08:46)
[2023-12-06] MEDS: hydrOXYzine HCL 25 MG TABLET PO (08:50)
[2023-12-06] MEDS: Magnesium Hydrox/Alum Hydrox 30 ML ORAL.SUSP PO (08:50)
[2023-12-06] MEDS: chlorproMAZINE HCl 100 MG TABLET PO (09:15)
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
[2023-12-06] MEDS: Loratadine 10 MG TABLET PO (10:18)
[2023-12-06] MEDS: Simethicone 80 MG TAB.CHEW PO ×4 (10:55→23:35)
[2023-12-06 20:06] VITALS: BP 127/71; PULSE 104; RESP 18; TEMP 36.7; O2SAT 100
[2023-12-06] MEDS: Throat Lozenge, Medicated LOZENGE 1 LOZENGE MUCOUS MEM ×2 (20:57→23:41)
[2023-12-06] MEDS: Lithium Carbonate ER 300 MG TABLET.ER 600 MG PO (23:35)
[2023-12-06] MEDS: OLANZapine 10 MG TABLET 20 MG PO (23:35)
[2023-12-06] MEDS: Divalproex Sodium ER 500 MG TAB.ER.24H 1500 MG PO (23:36)
[2023-12-07] MEDS: hydrOXYzine HCL 25 MG TABLET PO (08:45)
[2023-12-07] MEDS: Lithium Carbonate ER 450 MG TABLET.ER PO (08:45)
[2023-12-07] MEDS: Simethicone 80 MG TAB.CHEW PO ×3 (08:45→17:17)
[2023-12-07] MEDS: Loratadine 10 MG TABLET PO (08:45)
[2023-12-07] MEDS: Fluticasone Propionate Nasal 16 GM SPRAY 1 SPRAY NOSTRIL-B (08:46)
[2023-12-07 08:48] VITALS: BP 138/79; PULSE 92; RESP 16; TEMP 36.8; O2SAT 98
[2023-12-07] MEDS: Throat Lozenge, Medicated LOZENGE 1 LOZENGE MUCOUS MEM ×3 (09:32→14:20)
[2023-12-07] MEDS: chlorproMAZINE HCl 100 MG TABLET PO (12:24)
[2023-12-07] MEDS: Magnesium Hydrox/Alum Hydrox 30 ML ORAL.SUSP PO (14:07)
[2023-12-07] MEDS: Acetaminophen 325 MG TABLET 650 MG PO (15:34)
--- NOTE | 2023-12-07 16:21 | P.PNPSI_ITS ---
Subjective Subjective Date of Service: 12/07/23 Reason For Visit: yudi Subjective Notes: Conditional Voluntary Interim History: pt slept most of the night. poor boundaries with males. No SI/HI. labile and intense look, taking medications. Medication Compliance: Yes Review of Systems Review of Systems Yes all other systems are reviewed and are negative Mental Status Exam Mental Status Exam Narrative: Appearance: casually groomed, fair hygiene, in NAD Behavior: cooperative Psychomotor: mild PMA of fidgetiness, hyperactivity Speech: clear, incr rate, amount. nml loudness, decr latency. TP: linear in response to questions TC: no signs of psychosis, feeling calmer with medications. Mood: euthymic Affect: hyper-intense, mod-labile SI: none HI: none AH/VH: none Delusions: none Insight/judgment: impaired x 2. Memory/cog: alert, oriented x 3. grossly intact to conversational testing. Diagnostics Vital Signs (24Hr): Vital Signs - 24 hr 12/06/23 20:06 12/07/23 08:48 Temperature 98.1 F 98.3 F Pulse Rate 104 H 92 Respiratory Rate 18 16 Blood Pressure 127/71 138/79 Pulse Oximetry 100 98 Oxygen Delivery Method Room Air Room Air BMI result Body Mass Index 28.2 Labs 12/03/23 00:16 12/03/23 00:16 Medications Medications Current Medications Acetaminophen (Acetaminophen 325 Mg Tablet) 650 mg PO Q6H PRN PRN Reason: Headache/Pain Mild Scale (1-3) Last Admin: 12/07/23 15:34 Dose: 650 mg Al Hydroxide/Mg Hydroxide (Magnesium Hydrox/Alum Hydrox 30 Ml Oral.Susp) 30 ml PO Q6H PRN PRN Reason: Heartburn/Nausea Last Admin: 12/07/23 14:07 Dose: 30 ml Benzocaine (Throat Lozenge, Medicated Lozenge) 1 lozenge MUCOUS MEM Q2H PRN PRN Reason: Sore Throat Last Admin: 12/07/23 14:20 Dose: 1 lozenge Chlorpromazine HCl (Chlorpromazine Hcl 100 Mg Tablet) 100 mg PO Q4H PRN PRN Reason: agitation Last Admin: 12/07/23 12:24 Dose: 100 mg Divalproex Sodium (Divalproex Sodium Er 500 Mg Tab.Er.24h) 1,500 mg PO BEDTIME DEB Last Admin: 12/06/23 23:36 Dose: 1,500 mg Fluticasone Propionate (Fluticasone Propionate Nasal 16 Gm [place]) 1 spray NOSTRIL-B BID [facility] Last Admin: 12/07/23 08:46 Dose: 1 spray Hydroxyzine HCl (Hydroxyzine Hcl 25 Mg Tablet) 25 mg PO Q6H PRN PRN Reason: Anxiety Last Admin: 12/07/23 08:45 Dose: 25 mg [place] Carbonate ([place] Carbonate Er 450 Mg Tablet.Er) 450 mg PO DAILY [facility] Last Admin: 12/07/23 08:45 Dose: 450 mg [place] Carbonate ([place] Carbonate Er 300 Mg Tablet.Er) 600 mg PO BEDTIME [facility] Last Admin: 12/06/23 23:35 Dose: 600 mg Loratadine (Loratadine 10 Mg Tablet) 10 mg PO DAILY [facility] Last Admin: 12/07/23 08:45 Dose: 10 mg Magnesium Hydroxide (Milk Of Magnesia 30 Ml Oral.Susp) 30 ml PO DAILY PRN PRN Reason: Constipation Nicotine Polacrilex (Nicotine Polacrilex 2 Mg Gum) 4 mg BUCCAL Q2H PRN PRN Reason: Nicotine Cravings Last Admin: 12/04/23 11:02 Dose: 4 mg Olanzapine (Olanzapine 10 Mg Tablet) 20 mg PO BEDTIME [facility] Last Admin: 12/06/23 23:35 Dose: 20 mg Simethicone (Simethicone 80 Mg Tab.Chew) 80 mg PO QIDWMHS [facility] Last Admin: 12/07/23 12:03 Dose: 80 mg Trazodone HCl (Trazodone Hcl 50 Mg Tablet) 50 mg PO BEDTIME MRX1 PRN PRN Reason: Insomnia Allergies Allergies Allergy/AdvReac Type Severity Reaction Status Date / Time haldol AdvReac Intermediate dystonia Uncoded 12/02/23 23:41 Assessment & Plan Assessment & Plan (1) Homeless single person: Status: Acute Code(s): Z59.00 - Homelessness unspecified (2) Cocaine use disorder: Status: Acute Code(s): F14.10 - Cocaine abuse, uncomplicated (3) Bipolar 1 disorder, manic, moderate: Status: Acute Code(s): F31.12 - Bipolar disorder, current episode manic without psychotic features, moderate (4) Cannabis use disorder: Status: Acute Code(s): F12.90 - Cannabis use, unspecified, uncomplicated Plan utox cocaine NEG, cannabis POS. abstain from cannabis use. restart outpt meds. continue VPA 1500 mg QHS, lithium 450/600, as well as prior medications. check labs saturday tamika - ordered. plan to discharge saturday morning per pt request. Reason for continued inpatient stay Substantial Risk for: inability to function Time Spent With Patient Time: Total time managing care of this patient today ____ minutes.
[2023-12-07 19:54] VITALS: BP 128/71; PULSE 106; RESP 18; TEMP 36.7; O2SAT 98
[2023-12-08] MEDS: Acetaminophen 325 MG TABLET 650 MG PO ×2 (03:12→11:28)
[2023-12-08] MEDS: Throat Lozenge, Medicated LOZENGE 1 LOZENGE MUCOUS MEM ×3 (03:23→16:01)
[2023-12-08 07:30] VITALS: BP 120/61; PULSE 84; RESP 16; TEMP 36.3; O2SAT 100
[2023-12-08] MEDS: Lithium Carbonate ER 450 MG TABLET.ER PO (08:00)
[2023-12-08] MEDS: Loratadine 10 MG TABLET PO (08:00)
[2023-12-08] MEDS: hydrOXYzine HCL 25 MG TABLET PO (08:00)
[2023-12-08] MEDS: Simethicone 80 MG TAB.CHEW PO ×4 (08:01→23:17)
[2023-12-08] MEDS: Fluticasone Propionate Nasal 16 GM SPRAY 1 SPRAY NOSTRIL-B ×2 (08:01→23:33)
[2023-12-08] MEDS: chlorproMAZINE HCl 100 MG TABLET PO ×2 (09:24→13:01)
[2023-12-08] MEDS: LORazepam 1 MG TABLET 2 MG PO ×2 (13:24→15:17)
[2023-12-08] MEDS: OLANZapine ODT 10 MG TAB.RAPDIS 20 MG TRANSLINGU (15:17)
[2023-12-08] MEDS: Divalproex Sodium 500 MG TABLET.DR 1500 MG PO (15:18)
--- NOTE | 2023-12-08 16:05 | HO.PSYCHPN ---
Subjective Subjective Date of Service: 12/08/23 Reason For Visit: yudi Subjective Notes: Conditional Voluntary Interim History: pt slept most of the night. Pt more explosive and labile today, running down the [place], yelling at times. She missed night time medication because she was asleep. did take thorazine for labile mood, continues to present as labile, given ativan 2mg. she reports numbness of hands and feets, she is poor historian so it is difficult to get an accurate report. Review of Systems Review of Systems Yes all other systems are reviewed and are negative Mental Status Exam Mental Status Exam Narrative: Appearance: casually groomed, fair hygiene, in NAD Behavior: cooperative Psychomotor: mild PMA of fidgetiness, hyperactivity Speech: clear, incr rate, amount. nml loudness, decr latency. TP: linear in response to questions TC: no signs of psychosis, feeling calmer with medications. Mood: euthymic Affect: hyper-intense, mod-labile SI: none HI: none AH/VH: none Delusions: none Insight/judgment: impaired x 2. Memory/cog: alert, oriented x 3. grossly intact to conversational testing. Diagnostics Vital Signs (24Hr): Vital Signs - 24 hr 12/07/23 19:54 12/08/23 07:30 Temperature 98.1 F 97.3 F Pulse Rate 106 H 84 Respiratory Rate 18 16 Blood Pressure 128/71 120/61 Pulse Oximetry 98 100 Oxygen Delivery Method Room Air Room Air BMI result Body Mass Index 28.2 Labs 12/03/23 00:16 12/03/23 00:16 Medications Medications Current Medications Acetaminophen (Acetaminophen 325 Mg Tablet) 650 mg PO Q6H PRN PRN Reason: Headache/Pain Mild Scale (1-3) Last Admin: 12/08/23 11:28 Dose: 650 mg Al Hydroxide/Mg Hydroxide (Magnesium Hydrox/Alum Hydrox 30 Ml Oral.Susp) 30 ml PO Q6H PRN PRN Reason: Heartburn/Nausea Last Admin: 12/07/23 14:07 Dose: 30 ml Benzocaine (Throat Lozenge, Medicated Lozenge) 1 lozenge MUCOUS MEM Q2H PRN PRN Reason: Sore Throat Last Admin: 12/08/23 16:01 Dose: 1 lozenge Chlorpromazine HCl (Chlorpromazine Hcl 100 Mg Tablet) 100 mg PO Q4H PRN PRN Reason: agitation Last Admin: 12/08/23 13:01 Dose: 100 mg Clotrimazole (Clotrimazole 1 % Cream 15 Gm Tube) 1 appl TOPICAL BID PRN; Protocol PRN Reason: Itching Divalproex Sodium (Divalproex Sodium Er 500 Mg Tab.Er.24h) 1,500 mg PO BEDTIME [facility] Fluticasone Propionate (Fluticasone Propionate Nasal 16 Gm [place]) 1 spray NOSTRIL-B BID [facility] Last Admin: 12/08/23 08:01 Dose: 1 spray Hydroxyzine HCl (Hydroxyzine Hcl 25 Mg Tablet) 25 mg PO Q6H PRN PRN Reason: Anxiety Last Admin: 12/08/23 08:00 Dose: 25 mg [place] Carbonate ([place] Carbonate Er 450 Mg Tablet.Er) 450 mg PO DAILY [facility] Last Admin: 12/08/23 08:00 Dose: 450 mg [place] Carbonate ([place] Carbonate Er 300 Mg Tablet.Er) 600 mg PO BEDTIME [facility] Last Admin: 12/07/23 23:48 Dose: Not Given Loratadine (Loratadine 10 Mg Tablet) 10 mg PO DAILY [facility] Last Admin: 12/08/23 08:00 Dose: 10 mg Magnesium Hydroxide (Milk Of Magnesia 30 Ml Oral.Susp) 30 ml PO DAILY PRN PRN Reason: Constipation Nicotine Polacrilex (Nicotine Polacrilex 2 Mg Gum) 4 mg BUCCAL Q2H PRN PRN Reason: Nicotine Cravings Last Admin: 12/04/23 11:02 Dose: 4 mg Olanzapine (Olanzapine 10 Mg Tablet) 20 mg PO BEDTIME [facility] Last Admin: 12/07/23 23:48 Dose: Not Given Olanzapine (Olanzapine 10 Mg Tablet) 10 mg PO DAILY [facility] Simethicone (Simethicone 80 Mg Tab.Chew) 80 mg PO QIDWMHS [facility] Last Admin: 12/08/23 12:11 Dose: 80 mg Trazodone HCl (Trazodone Hcl 50 Mg Tablet) 50 mg PO BEDTIME MRX1 PRN PRN Reason: Insomnia Allergies Allergies Allergy/AdvReac Type Severity Reaction Status Date / Time haldol AdvReac Intermediate dystonia Uncoded 12/02/23 23:41 Assessment & Plan Assessment & Plan (1) Bipolar 1 disorder, manic, moderate: Status: Acute Code(s): F31.12 - Bipolar disorder, current episode manic without psychotic features, moderate (2) Homeless single person: Status: Acute Code(s): Z59.00 - Homelessness unspecified (3) Cocaine use disorder: Status: Acute Code(s): F14.10 - Cocaine abuse, uncomplicated (4) Cannabis use disorder: Status: Acute Code(s): F12.90 - Cannabis use, unspecified, uncomplicated Plan utox cocaine NEG, cannabis POS. abstain from cannabis use. restart outpt meds. continue VPA 1500 mg QHS, lithium 450/600, as well as prior medications. check labs saturday tamika - ordered. plan to discharge saturday morning per pt request. 12/07 labile, additional thorazine and ativan given. Reason for continued inpatient stay Substantial Risk for: inability to function Time Spent With Patient Time: Total time managing care of this patient today ____ minutes.
[2023-12-08] MEDS: Lithium Carbonate ER 300 MG TABLET.ER 600 MG PO (23:16)
[2023-12-08] MEDS: OLANZapine 10 MG TABLET 20 MG PO (23:17)
[2023-12-08] MEDS: Clotrimazole 1 % Cream 15 GM TUBE 1 APPL TOPICAL (23:33)
[2023-12-09] MEDS: Acetaminophen 325 MG TABLET 650 MG PO ×2 (00:29→08:58)
[2023-12-09] MEDS: chlorproMAZINE HCl 100 MG TABLET PO ×2 (00:29→08:52)
[2023-12-09 07:58] LABS: HIV AB/AG Nonreactive (Nonreactive); HIV Num 1 0.42 S/CO (0.00-0.99)
[2023-12-09] MEDS: Lithium Carbonate ER 450 MG TABLET.ER PO (08:52)
[2023-12-09] MEDS: hydrOXYzine HCL 25 MG TABLET PO (08:52)
[2023-12-09] MEDS: OLANZapine 10 MG TABLET PO (08:53)
[2023-12-09] MEDS: Loratadine 10 MG TABLET PO (08:53)
[2023-12-09] MEDS: Simethicone 80 MG TAB.CHEW PO ×2 (08:56→11:00)
[2023-12-09] MEDS: Fluticasone Propionate Nasal 16 GM SPRAY 1 SPRAY NOSTRIL-B (08:56)
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
[2023-12-09] MEDS: Throat Lozenge, Medicated LOZENGE 1 LOZENGE MUCOUS MEM (11:19)
[2023-12-09 12:50] LABS: Lithium 0.51 mmol/L (0.60-1.20)
[2023-12-09 12:55] LABS: Valproate 46.4 mcg/mL (50.0-100.0)
[2023-12-09 12:59] LABS: Alanine Aminotransferase 106 U/L (0-31); Albumin Level 3.9 g/dL (3.5-5.0); Alkaline Phosphatase 88 U/L (39-117); Anion Gap 10 (12-20); Aspartate Amino Transferase 44 U/L (5-31); Bilirubin Direct < 0.2 mg/dL (0.0-0.5); Bilirubin Total 0.1 mg/dL (0.0-1.0); Blood Urea Nitrogen 23 mg/dL (9-16); Calcium 8.6 mg/dL (8.4-10.2); Carbon Dioxide 26 mmol/L (22-29); Chloride 104 mmol/L (96-108); Creatinine Clr Calc Pharmacy 118.9; Estimated Glomerular Filt Rate > 60; Glucose Random 131 mg/dL (60-115); Potassium 4.4 mmol/L (3.3-5.1); Sodium 136 mmol/L (135-145); Total Protein 6.7 g/dL (6.5-8.0)
[2023-12-09 22:08] LABS: Lyme Abs Screen <0.90 index
[2023-12-10 16:38] LABS: RPR Rapid Plasma Reagin NON-REACTIVE (NON-REACTIVE)
[2023-12-16 12:49] LABS: Anti Nuclear Antibody Screen POSITIVE (NEGATIVE)
== END 2023-12-09 13:09 | disposition home or self-care (01) | DRG 753 ==
LOC: HO.ED 12-03 10:44 → HO.PADLT16 12-05 11:59
PROVIDERS: Social Worker; Admitting Provider Psychiatry & Neurology Psychiatry; Emergency Provider Internal Medicine; Visit Provider Psychiatry & Neurology Psychiatry
DX: F31.12 Bipolar disorder, current episode manic without psychotic features, moderate (principal); F14.10 Cocaine abuse, uncomplicated; Z59.02 Unsheltered homelessness; Z78.1 Physical restraint status; Z79.51 Long term (current) use of inhaled steroids; Z79.899 Other long term (current) drug therapy
CPT/HCPCS: 36415; 80048; 80053; 80076; 80143; 80164; 80178; 80179; 80307; 81003; 83735; 84702; 85025; 86038; 86039; 86592; 86617; 86618; 87389; 93005; 99285; J1790; J2250; J2359; S9485

== ENCOUNTER → 2023-12-02 23:41 | Outpatient (BNV) | payer OTHER, SELFPAY | PROVIDERS: Emergency Provider Internal Medicine; Visit Provider Internal Medicine Cardiovascular Disease | DX: T50.901A Poisoning by unspecified drugs, medicaments and biological substances, accidental (unintentional), initial encounter (principal) | CPT/HCPCS: 93010 ==

== ENCOUNTER → 2023-12-03 00:25 | Outpatient (BNV) | payer OTHER, SELFPAY | PROVIDERS: Emergency Provider Internal Medicine; Visit Provider Psychiatry & Neurology Psychiatry | DX: F31.12 Bipolar disorder, current episode manic without psychotic features, moderate (principal); F14.10 Cocaine abuse, uncomplicated; Z59.00 Homelessness unspecified; F12.90 Cannabis use, unspecified, uncomplicated | CPT/HCPCS: 90792; 99231; 99232; 99239 ==

== ENCOUNTER 2023-12-26 03:23 | Emergency (ER) | payer OTHER, SELFPAY ==
--- NOTE | ~2023-12-26 | XR_ITS ---
EXAMINATION: XR FOOT, RIGHT CLINICAL INFORMATION: Pain. No further information provided. COMPARISON: None available. TECHNIQUE: AP, lateral, and oblique views of the right foot. FINDINGS: The bones and soft tissues are normal. No fracture. Alignment is anatomic. Joint spaces are maintained. XR/XR foot RT 2V IMPRESSION: Normal right foot. Electronically signed by: Hayder Obrien MD 12/26/2023 10:08 AM [facility]
[2023-12-26 03:34] VITALS: BP 132/79; BP 136/90; PULSE 85; PULSE 92; RESP 20; TEMP 36.6; O2SAT 99; BMI 24.0
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
[2023-12-26] MEDS: Acetaminophen 325 MG TABLET 975 MG PO (04:35)
--- NOTE | 2023-12-26 04:36 | PC.NURSE ---
verbal order for tylenol, pt medicated per apr, tolerated well with water.
[2023-12-26 05:51] VITALS: RESP 20
--- NOTE | 2023-12-26 06:54 | PC.NURSE ---
pt ambulatory with steady gait to bathroom, denies any complaints.
--- NOTE | 2023-12-26 08:00 | PC.NURSE ---
pt refused ibuprofen at this time. pt stated that what she needs is some casts for her feet .
--- NOTE | 2023-12-26 10:15 | PC.NURSE ---
pt up ambulating to the BR and walking around ER without obvious difficulty. pt continues to have appropriate gait no limp/distress noted with ambulation.
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
[2023-12-26 10:32] VITALS: BP 129/77; PULSE 86; RESP 16; TEMP 36.6; O2SAT 99
[2023-12-26 11:06] VITALS: BP 129/77; PULSE 86; RESP 16; TEMP 36.6; O2SAT 99
--- NOTE | 2023-12-26 11:06 | PC.NURSE ---
pt ambulating to the BR - provided grace wraps for comfort, plan to D/C
== END 2023-12-26 11:11 | disposition home or self-care (01) ==
PROVIDERS: Emergency Provider Student in an Organized Health Care Education/Training Program
DX: M79.671 Pain in right foot (principal); M79.672 Pain in left foot
CPT/HCPCS: 73620; 99283; 99284

== ENCOUNTER → 2023-12-26 07:52 | Outpatient (BNV) | payer OTHER, SELFPAY | PROVIDERS: Emergency Provider Student in an Organized Health Care Education/Training Program; Visit Provider Radiology Diagnostic Radiology | DX: M25.572 Pain in left ankle and joints of left foot (principal) | CPT/HCPCS: 73620 ==

== ENCOUNTER 2024-01-17 18:50 | Emergency (ER) | payer OTHER, SELFPAY ==
--- NOTE | ~2024-01-17 | XR_ITS ---
EXAMINATION: XR FOOT, LEFT CLINICAL INFORMATION: Lt foot pain COMPARISON: None available. TECHNIQUE: AP, lateral, and oblique views of the left foot. FINDINGS: The bones and soft tissues are normal. No fracture. Alignment is anatomic. Joint spaces are maintained. XR/XR foot LT 2V IMPRESSION: Normal left foot. Electronically signed by: Lucy Wyatt MD 01/17/2024 08:49 PM EST
--- NOTE | ~2024-01-17 | XR_ITS ---
EXAMINATION: XR FOOT, RIGHT CLINICAL INFORMATION: rt foot pain COMPARISON: None available. TECHNIQUE: AP, lateral, and oblique views of the right foot. FINDINGS: The bones and soft tissues are normal. No fracture. Alignment is anatomic. Joint spaces are maintained. XR/XR foot RT 2V IMPRESSION: Normal right foot. Electronically signed by: Lucy Wyatt MD 01/17/2024 08:49 PM EST
[2024-01-17 19:10] VITALS: BP 120/89; PULSE 95; RESP 18; TEMP 36.9; O2SAT 97; BMI 28.3
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
[2024-01-17 19:43] VITALS: BP 120/89; PULSE 95; RESP 18; TEMP 36.9; O2SAT 97
== END 2024-01-17 20:05 | disposition home or self-care (01) ==
PROVIDERS: Emergency Provider Emergency Medicine
DX: M79.605 Pain in left leg (principal); M79.604 Pain in right leg; F14.10 Cocaine abuse, uncomplicated; Z59.00 Homelessness unspecified; Z79.899 Other long term (current) drug therapy
CPT/HCPCS: 73620; 99282; 99283

== ENCOUNTER 2024-02-16 02:14 | Emergency (ER) | payer OTHER, SELFPAY ==
--- NOTE | 2024-02-16 | ECG_ITS ---
Test Reason : tachy Blood Pressure : / mmHG Vent. Rate : 147 BPM Atrial Rate : 147 BPM P-R Int : 124 ms QRS Dur : 080 ms QT Int : 340 ms P-R-T Axes : 074 091 035 degrees QTc Int : 532 ms Sinus tachycardia Rightward axis Borderline ECG When compared with ECG of 02-DEC-2023 23:51, Vent. rate has increased BY 79 BPM Non-specific change in ST segment in Anterior leads Referred By: Kalina Hinojosa Electronically Signed By:ROOPA BERMUDEZ MD
--- NOTE | ~2024-02-16 | CT_ITS ---
CLINICAL HISTORY: first time seizure CT head without contrast Comparison: CT/REG/SR - CT HEAD/BRAIN WO IV CON - 08/16/23 00:31 EDT Findings: This examination is degraded by motion artifact, particularly near the skull base. No intracranial mass, midline shift, hydrocephalus, or acute hemorrhage. Visualized paranasal sinuses and mastoid air cells appear clear. No acute skull fracture. Impression: 1. Mildly motion limited examination. No acute intracranial abnormality or acute intracranial hemorrhage identified. This document has been electronically signed by: Pepe Johnson MD on 02/16/2024 04:42:44
--- NOTE | ~2024-02-16 | XR_ITS ---
CLINICAL HISTORY: hypoxic 1 view chest x-ray. Comparison: CR/SR - XR CHEST 2V - 02/02/23 08:22 EST Findings: No consolidation, pneumothorax, or effusion. Heart size normal. Impression: 1. No acute cardiopulmonary process. No focal pulmonary consolidation. This document has been electronically signed by: Pepe Johnson MD on 02/16/2024 04:39:19
[2024-02-16 02:24] VITALS: BP 143/60; PULSE 156; RESP 20; TEMP 37.8; O2SAT 97; BMI 28.8
--- NOTE | 2024-02-16 02:26 | ED_ITS ---
HPI - General Adult General Chief complaint: General Medical Stated complaint: POSSIBLE SEIZURE Time Seen by Provider: 02/16/24 02:25 Source: patient and EMS Mode of arrival: EMS Limitations: altered mental status History of Present Illness ED Provider: Dr. Kalina Hinojosa HPI narrative: Patient comes to the emergency room via ambulance. According to EMS, patient's friends called because the patient seemed confused. According to EMS, patient had had seizure-like episode in the ambulance, but patient not seem postictal. According to EMS, prior to their arrival, PD was on scene, patient was acting erratic, PD handcuff the patient. On arrival, patient no longer on handcuffs, cooperative. Denies using drugs or alcohol. Patient denies having seizures. Patient denies SI or HI Related Data Previous Rx's ?Medication ?Instructions ?Recorded acetaminophen 325 mg tablet 650 mg (2 x 325 mg) PO Q6H PRN 12/09/23 Headache/Pain Mild Scale (1-3) 30 days #240 tabs chlorpromazine 100 mg tablet 100 mg PO Q6H PRN agitation 30 12/09/23 days #120 tabs clotrimazole 1 % topical cream 1 appl topical BID PRN Itching 30 12/09/23 days #30 grams divalproex 500 mg tablet,extended 1,500 mg (3 x 500 mg) PO BEDTIME 12/09/23 release 24 hr 30 days #90 tabs fluticasone propionate 50 1 spray intranasal BID 30 days #16 12/09/23 mcg/actuation nasal grams spray,suspension lithium carbonate 300 mg 600 mg (2 x 300 mg) PO BEDTIME 30 12/09/23 tablet,extended release days #60 tabs lithium carbonate 450 mg 450 mg PO DAILY 30 days #30 tabs 12/09/23 tablet,extended release loratadine 10 mg tablet 10 mg PO DAILY 30 days #30 tabs 12/09/23 nicotine (polacrilex) 2 mg gum 4 mg buccal Q2H PRN Nicotine 12/09/23 Cravings 30 days #120 ea olanzapine 10 mg tablet See Rx Instructions .Route 12/09/23 .COMPLEX 30 days #90 tabs acetaminophen 500 mg capsule 500 mg PO Q6H PRN pain #30 caps 01/17/24 Allergies Allergy/AdvReac Type Severity Reaction Status Date / Time haldol AdvReac Intermediate dystonia Uncoded 02/16/24 02:24 Review of Systems 2 Review of Systems: Constitutional : No Weight loss, No Fever, No Chills, No Night Sweats, patient complaining of generalized malaise ENT/Mouth : No Hearing loss, No Ear Pain, No Nasal Congestion, No Sinus Pain, No Hoarseness, No sore throat, No Rhinorrhea, No Swallowing Difficulty Eyes: No Eye Pain, No Swelling, No Redness, No Foreign Body, No Discharge, No Vision Changes Cardiovascular : No Chest Pain, No SOB, No Dyspnea on Exertion, No Orthopnea, No Edema, No Palpitations Respiratory : No Cough, No Sputum, No Wheezing, No Smoke Exposure, No Dyspnea Gastrointestinal : No Nausea, No Vomiting, No Diarrhea, No Constipation, No abdominal Pain, No Hematochezia, No Melena Genitourinary : no irregular bleeding, No Dysuria, No Urinary Frequency, No Hematuria, No Urinary Incontinence, No Urgency, No Flank Pain, No Urinary Flow Changes, No Hesitancy Musculoskeletal : No joint pain, No Myalgias, No Joint Swelling Skin : No Skin Lesions, No rash Neuro : No Weakness, No Numbness, No Paresthesias, No Loss of Consciousness, No Dizziness, No Headache, per EMS possible tonic-clonic seizure? Psych : No Anxiety/Panic, No Depression, No SI/HI/AH/VH, No Social Issues, Heme/Lymph: No Bruising, No Bleeding,No Lymphadenopathy Endocrine : No Polyuria, No Polydipsia, No Temperature Intolerance PMFSH Past Medical History Medical History Drug overdose Cocaine use disorder Bipolar 1 disorder, mixed, severe No known health problems Social History Social History Household Members: None Housing: Homeless Do you presently have visiting nurse or other home services: No Unable to assess alcohol history related to: Refusing to respond Alcohol intake: current Alcohol intake frequency: a few times a month Patient Tobacco Use Status: Never used Tobacco Smoked in Last 30 Days: No e-Cigarette/Vaping Use: Former Use Second Hand Smoke Exposure: No Use of substances other than those prescribed or required for medical reasons: No Substance Use Type: Marijuana Advance Directives: No Do you have a plan to hurt others: No Plan Patient : No service: No Sexual orientation: Straight/Heterosexual Physical Exam ED Vital Signs: Vital Signs - 24 hr 02/16/24 02:24 02/16/24 03:28 02/16/24 05:28 Temperature 100.0 F 98.4 F 98.1 F Pulse Rate 156 H 125 H 100 Respiratory Rate 20 14 16 Blood Pressure 143/60 H 129/72 126/79 Pulse Oximetry 97 100 98 Oxygen Delivery Method Room Air Nasal Cannula Nasal Cannula Oxygen Flow Rate 2 2 02/16/24 06:06 02/16/24 06:16 02/16/24 06:34 Temperature 98.5 F Pulse Rate 104 H 114 H 99 Respiratory Rate 16 20 20 Blood Pressure 119/67 117/52 L 106/50 L Pulse Oximetry 96 97 99 Oxygen Delivery Method Room Air Room Air Room Air Oxygen Flow Rate BMI result Body Mass Index 28.8 Const Other: Appearance: Alert. Oriented X3. No acute distress. Eyes: Pupils equal, round and reactive to light. ENT: Pharynx normal. Neck: Normal inspection. Neck supple. No lymph nodes noted. No crepitus CVS: Normal heart rate and rhythm. Pulses normal. Normal S1 and S2 Respiratory: No respiratory distress. Breath sounds normal. No Wheezing. No rales Abdomen: Soft and nontender. No rigidity. No distention. Skin: Skin warm and dry. Normal skin color. Normal skin turgor. Extremities: No lower extremity edema. No Lacerations. No Rash Neuro: Oriented X 3. No motor deficit. No sensory deficit. Moving all extremities. No slurred speech. CN 2 through 12 grossly intact Psych: calm, cooperative, bizarre affect Medications Administered Discontinued Medications Generic Name Dose Route Start Last Admin Trade Name Freq PRN Reason Stop Dose Admin Sodium Chloride 1,000 mls @ 999 mls/hr 02/16/24 02:53 02/16/24 05:49 Ns IVCONT 02/16/24 03:53 Infused .Q1H1M ONE Infusion Sodium Chloride 1,000 mls @ 999 mls/hr 02/16/24 03:23 02/16/24 05:49 Ns IVCONT 02/16/24 04:23 Infused .Q1H1M ONE Infusion Medical Decision Making Medical Decision Making MDM Narrative: Patient's white blood cell count 17.5, patient has had prior leukocytosis in the past without any source of infection. Today, lactic acid is 6.7. EMS reported that they saw a possible seizure-like activity. Patient's lactic acid likely secondary to a seizure. Head CT pending. At this time, there is no obvious source of infection. Urine is negative for UTI, patient has squamous epithelial cells, serology test negative for influenza, RSV, COVID. -chest x-ray is pending. -I was informed by the patient's nurse that the patient had an episode of O2 desaturation while she was sleeping. However, patient denies any respiratory symptoms, patient's toxicology positive for opiates, oxycodone, cocaine and THC -patient is awake, alert, ambulating to the bathroom, alert and oriented x3. Patient does not seem confused or postictal. Patient's labs, patient's CPK is elevated, lactic acid 6.7, elevated white blood cell count, patient likely did have a first-time seizure. CT scan is negative for any acute findings. Lactic acid improved with IV fluids, now 0.7, back to normal. Patient does not have any fever. Patient has been up and walking to the bathroom. When we speak to the patient regarding taking her psychiatric medications, being SI or HI, patient plays possum -it was noted that patient's valproic acid and lithium levels are subtherapeutic. It is likely that patient is not compliant with her medication. Seems that patient has a substantial risk of impairment of judgment. -patient is on a Section 12 Regarding the seizure, seems that this is the 1st time the patient has a seizure, could be secondary to polysubstance abuse? At this time, starting antiepileptic medications is not recommended. However, if patient has subsequent seizures, patient will need to be started on antiepileptics and have a Neurology consult. At this time, patient is awake and alert but if we talk to the patient about her medications or SI/HI, patient plays possum Patient is on a Section 12 Care team consult pending Physician observation started at 07:04 Sign-out given to my colleague Dr. Jennings Differential Diagnosis Differential Diagnoses: The differential diagnosis associated with the presentation includes (Seizure, pseudo-seizure, medication noncompliance, side effect of illicit drugs) Admission/Observation Consideration of admission/observation: Escalation of care including admission/observation considered Lab Data 02/16/24 02:51 02/16/24 02:51 Labs: Lab Results 02/16/24 02/16/24 02/16/24 Range/Units 02:50 02:51 03:13 WBC 17.5 H (4.8-10.8) X10*3/uL RBC 3.90 L (4.20-5.50) X10*6/uL Hgb 12.1 (12.0-16.0) g/dl Hct 34.5 L (37.0-47.0) % MCV 88.5 (80.0-98.0) fL MCH 31.0 (27.0-33.0) pg MCHC 35.1 H (31.0-35.0) g/dl RDW 13.0 (11.0-16.0) % Plt Count 316 (160-400) X10*3/uL MPV 9.7 (9.4-12.3) fL Immature Gran % (Auto) Cancelled Neut % (Auto) Cancelled Lymph % (Auto) Cancelled [place] % (Auto) Cancelled Eos % (Auto) Cancelled Baso % (Auto) Cancelled Lymph # (Auto) Cancelled [place] # (Auto) Cancelled Eos # (Auto) Cancelled Baso # (Auto) Cancelled Abs Immat Gran (auto) Cancelled Absolute Neuts (auto) Cancelled Absolute Nucleated RBC 0.000 (0.0-0.012) X10*3/uL Nucleated RBC % (auto) 0.0 (0.0-0.2) /100WBC Neutrophils % (Manual) 92 H (45-73) % Band Neutrophils % 0 L (3-5) % Lymphocytes % (Manual) 5 L (20-40) % Monocytes % (Manual) 3 (2-11) % Abs Neuts (Manual) 16.1 H (2.0-8.3) X10*3/uL Lymphocytes # (Manual) 0.9 L (1.2-4.9) X10*3/uL Monocytes # (Manual) 0.5 (0.1-1.2) X10*3/uL Platelet Estimate NORMAL (NORMAL) Plt Morphology Comment NORMAL RBC Morphology NORMAL Sodium 138 (135-145) mmol/L Potassium 3.9 (3.3-5.1) mmol/L Chloride 104 (96-108) mmol/L Carbon Dioxide 17 L (22-29) mmol/L Anion Gap 21 H (12-20) BUN 15 (9-16) mg/dL Creatinine 1.12 (0.5-1.4) mg/dL Estim Creat Clear Calc 81.5 Estimated GFR > 60 Random Glucose 91 (60-115) mg/dL Lactic Acid 6.7 H* (0.5-2.0) mmol/L Lactic Acid F/U @ 2Hr (0.5-2.0) mmol/L Calcium 9.3 D (8.4-10.2) mg/dL Total Bilirubin 0.7 (0.0-1.0) mg/dL AST 91 H (5-31) U/L ALT 37 H (0-31) U/L Alkaline Phosphatase 69 (39-117) U/L Total Creatine Kinase 2901 H (26-140) U/L Total Protein 7.5 (6.5-8.0) g/dL Albumin 4.6 (3.5-5.0) g/dL Beta HCG, Quant < 2 mIU/mL Urine Color Yellow Urine Appearance Hazy Urine pH 6.0 (5.0-9.0) Ur Specific [place] 1.020 (1.005-1.025) Urine Protein 100 (2+) H (Neg-Trace) mg/dL Urine Glucose (UA) Negative (Negative) mg/dL Urine Ketones 15 (Negative) mg/dL Urine Blood Small (1+) H (Negative) Urine Nitrite Negative (Negative) Ur Leukocyte Esterase Negative (Negative) Urine RBC 3-5 H (0-2) /HPF Urine WBC 0-5 (0-5) /HPF Ur Squamous Epith Cells 6-10 (0-2) /HPF Urine Bacteria None Seen (None Seen) Hyaline Casts 6-10 (0-2) /LPF Urine Opiates Screen POSITIVE H (Not Detect) Ur Buprenorphine Scrn Not Detected (Not Detect) ng/mL Ur Oxycodone Screen Positive H (Not Detect) ng/mL Urine Methadone Screen Not Detected (Not Detect) ng/mL Urine Fentanyl Screen Not Detected (Not Detect) Ur Barbiturates Screen Not Detected (Not Detect) Valproic Acid < 12.5 L (50.0-100.0) mcg/mL Ur Phencyclidine Scrn Not Detected (Not Detect) Ur Amphetamines Screen Not Detected (Not Detect) U Benzodiazepines Scrn Not Detected (Not Detect) [place] < 0.10 L (0.60-1.20) mmol/L Urine Cocaine Screen POSITIVE H (Not Detect) U Marijuana (THC) Screen POSITIVE H (Not Detect) Ethyl Alcohol < 10 mg/dL Influenza Type A (PCR) NEGATIVE (Negative) Influenza Type B (PCR) NEGATIVE (Negative) RSV RNA Qual (PCR) NEGATIVE (Negative) SARS-CoV-2 RNA (RT-PCR) NEGATIVE (Negative) 02/16/24 Range/Units 05:25 WBC (4.8-10.8) X10*3/uL RBC (4.20-5.50) X10*6/uL Hgb (12.0-16.0) g/dl Hct (37.0-47.0) % MCV (80.0-98.0) fL MCH (27.0-33.0) pg MCHC (31.0-35.0) g/dl RDW (11.0-16.0) % Plt Count (160-400) X10*3/uL MPV (9.4-12.3) fL Immature Gran % (Auto) Neut % (Auto) Lymph % (Auto) [place] % (Auto) Eos % (Auto) Baso % (Auto) Lymph # (Auto) [place] # (Auto) Eos # (Auto) Baso # (Auto) Abs Immat Gran (auto) Absolute Neuts (auto) Absolute Nucleated RBC (0.0-0.012) X10*3/uL Nucleated RBC % (auto) (0.0-0.2) /100WBC Neutrophils % (Manual) (45-73) % Band Neutrophils % (3-5) % Lymphocytes % (Manual) (20-40) % Monocytes % (Manual) (2-11) % Abs Neuts (Manual) (2.0-8.3) X10*3/uL Lymphocytes # (Manual) (1.2-4.9) X10*3/uL Monocytes # (Manual) (0.1-1.2) X10*3/uL Platelet Estimate (NORMAL) Plt Morphology Comment RBC Morphology Sodium (135-145) mmol/L Potassium (3.3-5.1) mmol/L Chloride (96-108) mmol/L Carbon Dioxide (22-29) mmol/L Anion Gap (12-20) BUN (9-16) mg/dL Creatinine (0.5-1.4) mg/dL Estim Creat Clear Calc Estimated GFR Random Glucose (60-115) mg/dL Lactic Acid (0.5-2.0) mmol/L Lactic Acid F/U @ 2Hr 0.7 (0.5-2.0) mmol/L Calcium (8.4-10.2) mg/dL Total Bilirubin (0.0-1.0) mg/dL AST (5-31) U/L ALT (0-31) U/L Alkaline Phosphatase (39-117) U/L Total Creatine Kinase (26-140) U/L Total Protein (6.5-8.0) g/dL Albumin (3.5-5.0) g/dL Beta HCG, Quant mIU/mL Urine Color Urine Appearance Urine pH (5.0-9.0) Ur Specific [place] (1.005-1.025) Urine Protein (Neg-Trace) mg/dL Urine Glucose (UA) (Negative) mg/dL Urine Ketones (Negative) mg/dL Urine Blood (Negative) Urine Nitrite (Negative) Ur Leukocyte Esterase (Negative) Urine RBC (0-2) /HPF Urine WBC (0-5) /HPF Ur Squamous Epith Cells (0-2) /HPF Urine Bacteria (None Seen) Hyaline Casts (0-2) /LPF Urine Opiates Screen (Not Detect) Ur Buprenorphine Scrn (Not Detect) ng/mL Ur Oxycodone Screen (Not Detect) ng/mL Urine Methadone Screen (Not Detect) ng/mL Urine Fentanyl Screen (Not Detect) Ur Barbiturates Screen (Not Detect) Valproic Acid (50.0-100.0) mcg/mL Ur Phencyclidine Scrn (Not Detect) Ur Amphetamines Screen (Not Detect) U Benzodiazepines Scrn (Not Detect) [place] (0.60-1.20) mmol/L Urine Cocaine Screen (Not Detect) U Marijuana (THC) Screen (Not Detect) Ethyl Alcohol mg/dL Influenza Type A (PCR) (Negative) Influenza Type B (PCR) (Negative) RSV RNA Qual (PCR) (Negative) SARS-CoV-2 RNA (RT-PCR) (Negative) Critical Care Time Critical Care Time Critical Care Time: Yes Total Critical Care Time: 60 Attestation: I have personally provided critical care time. Time includes review of lab data, radiology results, discussion with consultants, and monitoring for potential decompensation. Intervention performed as documented. Discharge Plan Discharge Clinical Impression: Polysubstance abuse, Seizure, Abnormal behavior Patient Disposition: Still a Patient Prescriptions: No Action acetaminophen 325 mg Tablet 650 mg PO Q6H PRN (Reason: Headache/Pain Mild Scale (1-3)) 30 Days Qty: 240 0RF chlorpromazine 100 mg Tablet 100 mg PO Q6H PRN (Reason: agitation) 30 Days Qty: 120 0RF olanzapine 10 mg Tablet See Rx Instructions .ROUTE .COMPLEX 30 Days Qty: 90 0RF Rx Instructions: take one tab daily and 2 tabs at bedtime lithium carbonate 300 mg Tablet Extended Release 600 mg PO BEDTIME 30 Days Qty: 60 0RF lithium carbonate 450 mg Tablet Extended Release 450 mg PO DAILY 30 Days Qty: 30 0RF divalproex 500 mg Tablet Extended Release 24 Hr 1,500 mg PO BEDTIME 30 Days Qty: 90 0RF loratadine 10 mg Tablet 10 mg PO DAILY 30 Days Qty: 30 0RF clotrimazole 1 % Cream 1 appl topical BID PRN (Reason: Itching) 30 Days Qty: 30 0RF Protocol: Apply to: Apply to: legs and hands nicotine (polacrilex) 2 mg Gum 4 mg buccal Q2H PRN (Reason: Nicotine Cravings) 30 Days Qty: 120 0RF fluticasone propionate 50 mcg/actuation [place],Suspension 1 spray intranasal BID 30 Days Qty: 16 0RF acetaminophen 500 mg capsule 500 mg PO Q6H PRN (Reason: pain) Qty: 30 0RF Print Language: Upper Sorbian
--- NOTE | 2024-02-16 02:54 | MHC.EDTECH ---
Patient was biba ,ekg taken and was read by Provider ,Patient was size changer by security and nursing staff ,All Patient belongings are locked up in [place] 3 rd shelf Patient was hooked up to marble machine operator ,Blood drawn including lactic acid ,RSV/COVID swab collected all sent to lab ,Patient drank 2 cups of water ,Patient resting quietly ,all safety measure in Place .
[2024-02-16 02:56] LABS: Hematocrit 34.5 % (37.0-47.0); Hemoglobin 12.1 g/dl (12.0-16.0); Mean Corpuscular HGB Conc 35.1 g/dl (31.0-35.0); Mean Corpuscular Volume 88.5 fL (80.0-98.0); Mean Platelet Volume 9.7 fL (9.4-12.3); Platelet Count 316 X10*3/uL (160-400); WBC ABN SCTR FOR CBC 1
[2024-02-16 02:59] LABS: White Blood Count 17.5 X10*3/uL (4.8-10.8)
[2024-02-16 03:05] LABS: Lithium < 0.10 mmol/L (0.60-1.20)
[2024-02-16 03:09] LABS: Valproate < 12.5 mcg/mL (50.0-100.0)
--- NOTE | 2024-02-16 03:14 | MHC.EDTECH ---
Patient awake ,walk to bathroom with supervision ,void ,urine sample collected and sent to lab .
[2024-02-16 03:16] LABS: Band Neutrophils Percent 0 % (3-5); Lymphocytes Absolute Manual 0.9 X10*3/uL (1.2-4.9); Lymphocytes Percent Manual 5 % (20-40); Monocytes Absolute Manual 0.5 X10*3/uL (0.1-1.2); Monocytes Percent Manual 3 % (2-11); Neutrophils Absolute Manual 16.1 X10*3/uL (2.0-8.3); Neutrophils Percent Manual 92 % (45-73)
[2024-02-16 03:16] LABS: Lactic Acid 6.7 mmol/L (0.5-2.0)
[2024-02-16 03:17] LABS: Platelet Estimate NORMAL (NORMAL); Platelet Morphology Comment NORMAL; RBC Morphology NORMAL
[2024-02-16] MEDS: 0.9 % Sodium Chloride 1,000 ML 999 ML IVCONT ×2 (03:25→03:26)
[2024-02-16 03:26] LABS: Alanine Aminotransferase 37 U/L (0-31); Albumin Level 4.6 g/dL (3.5-5.0); Alkaline Phosphatase 69 U/L (39-117); Anion Gap 21 (12-20); Aspartate Amino Transferase 91 U/L (5-31); Bilirubin Total 0.7 mg/dL (0.0-1.0); Blood Urea Nitrogen 15 mg/dL (9-16); Calcium 9.3 mg/dL (8.4-10.2); Carbon Dioxide 17 mmol/L (22-29); Chloride 104 mmol/L (96-108); Creatinine Clr Calc Pharmacy 81.5; Estimated Glomerular Filt Rate > 60; Ethanol < 10 mg/dL; Glucose Random 91 mg/dL (60-115); HCG Quantitative < 2 mIU/mL; Potassium 3.9 mmol/L (3.3-5.1); Sodium 138 mmol/L (135-145); Total Protein 7.5 g/dL (6.5-8.0)
[2024-02-16 03:28] VITALS: BP 129/72; PULSE 125; RESP 14; TEMP 36.9; O2SAT 100
--- NOTE | 2024-02-16 03:29 | MHC.EDTECH ---
Blood culture drawn and sent to lab .
[2024-02-16 03:33] LABS: Influenza A PCR NEGATIVE (Negative); Influenza B PCR NEGATIVE (Negative); Resp Syncy Virus RNA Qual PCR NEGATIVE (Negative); SARS COV2 PCR INHOUSE NEGATIVE (Negative)
[2024-02-16 03:33] LABS: Appearance Urine Hazy; Color Urine Yellow; Glucose Urine UA Negative (Negative); Leukocyte Esterase Urine Negative (Negative); Nitrite Urine Negative (Negative); UMIC TRIGGER UACC YES; Urine Blood Small (1+) (Negative); Urine Ketones 15 mg/dL (Negative); Urine Protein 100 (2+) mg/dL (Neg-Trace)
[2024-02-16 03:34] LABS: Amphetamine Screen Urine Not Detected (Not Detect); Bacteria Urine None Seen (None Seen); Barbiturates, Urine Not Detected (Not Detect); Benzodiazepines Screen Urine Not Detected (Not Detect); Buprenorphine Scr Not Detected (Not Detect); Cannabinoid Screen Urine POSITIVE (Not Detect); Cocaine Screen Urine POSITIVE (Not Detect); Fentanyl, urine Not Detected (Not Detect); Methadone Screen, Urine Not Detected (Not Detect); Opiate Screen Urine POSITIVE (Not Detect); Oxycodone Screen Urine Positive (Not Detect); Phencyclidine Screen Urine Not Detected (Not Detect); WBC Urine 0-5 /HPF (0-5)
[2024-02-16 04:54] LABS: Reflex Lactate? Lactic Acid Added
[2024-02-16 05:28] VITALS: BP 126/79; PULSE 100; RESP 16; TEMP 36.7; O2SAT 98
--- NOTE | 2024-02-16 05:28 | MHC.EDTECH ---
Repeated lactic acid drawn and sent to lab ,vitals taken ,Pt sleeping .
[2024-02-16 05:44] LABS: ~Lactic Acid-LAB USE ONLY 0.7 mmol/L (0.5-2.0)
--- NOTE | 2024-02-16 05:57 | PC.NURSE ---
O2 removed. stating 96% RA. IVF finished, no abx ordered for wbc/elevated lactic. per provided values are from suspected seizure not infection
[2024-02-16 06:06] VITALS: BP 119/67; PULSE 104; RESP 16; O2SAT 96
[2024-02-16 06:16] VITALS: BP 117/52; PULSE 114; RESP 20; O2SAT 97
[2024-02-16 06:34] VITALS: BP 106/50; PULSE 99; RESP 20; TEMP 36.9; O2SAT 99
--- NOTE | 2024-02-16 06:47 | PC.NURSE ---
alerted pt that breakfast would be here soon, pt responded okay then attempted to assess pt and ask questions regarding events that brought pt to ED and if she is SI. pt is refusing to answer now. MD white
--- NOTE | 2024-02-16 08:09 | PC.NURSE ---
Pt changed into 2 attire; sitter in place; pt to have crisis eval
--- NOTE | 2024-02-16 19:45 | PC.NURSE ---
Assumed care of patient, patient in shower and previous RN stated had been in for a while but with frequent checks and was doing well on own without issues. Tech assisted patient after shower with more towels and new hospital gown. patient calm and cooperative at this time. requesting [facility] sandwhich and water.
[2024-02-17 02:10] VITALS: RESP 20
--- NOTE | 2024-02-17 02:10 | PC.NURSE ---
Patient awake to utilize restroom, alert and oriented, ambulated with steady gait, refused all vital signs at this time. Stated, you can get them tomorrow.
--- NOTE | 2024-02-17 05:26 | PC.NURSE ---
Patient up to bathroom for 3rd time with diarrhea, provider notified and asked for immodium and tylenol. Patient states, I have body aches and I just don't feel well.
--- NOTE | 2024-02-17 05:37 | PC.NURSE ---
patient now noted to be in bathroom vomiting x4. Provider made aware.
[2024-02-17] MEDS: Loperamide HCl 2 MG CAPSULE 4 MG PO (05:49)
[2024-02-17] MEDS: Acetaminophen 325 MG TABLET 650 MG PO (05:49)
[2024-02-17 05:55] VITALS: BP 127/73; PULSE 98; RESP 20; TEMP 36.9; O2SAT 99
--- NOTE | 2024-02-17 07:04 | PC.NURSE ---
Assumed care of patient at 0645, patient appears to be sleeping at this time, respirations even and unlabored. Per previous RN, patient is having diarrhea and vomiting. Pt did take Immodium this am, no episodes of diarrhea since then. Continue plan of care for re-eval this am
--- NOTE | 2024-02-17 09:06 | PC.NURSE ---
Pt awake, spoke with CARE team, pt showering now to see if she will feel better
[2024-02-17 11:53] VITALS: BP 108/68; PULSE 78; RESP 16; TEMP 36.4; O2SAT 99
== END 2024-02-17 11:54 | disposition home or self-care (01) ==
PROVIDERS: Emergency Medicine; Emergency Provider Emergency Medicine Emergency Medical Services
DX: R56.9 Unspecified convulsions (principal); F91.9 Conduct disorder, unspecified; R51.9 Headache, unspecified; F11.10 Opioid abuse, uncomplicated; F41.9 Anxiety disorder, unspecified; R00.0 Tachycardia, unspecified; Z03.818 Encounter for observation for suspected exposure to other biological agents ruled out; Z79.899 Other long term (current) drug therapy; Z51.81 Encounter for therapeutic drug level monitoring
CPT/HCPCS: 0241U; 36415; 70450; 71045; 80053; 80164; 80178; 80307; 81001; 82550; 83605; 84702; 85007; 85027; 87040; 93005; 99285; S9485

== ENCOUNTER → 2024-02-16 02:26 | Outpatient (BNV) | payer OTHER, SELFPAY | PROVIDERS: Emergency Provider Emergency Medicine; Visit Provider Internal Medicine Cardiovascular Disease | DX: R00.0 Tachycardia, unspecified (principal) | CPT/HCPCS: 93010 ==

== ENCOUNTER → 2024-02-16 03:21 | Outpatient (BNV) | payer OTHER, SELFPAY | PROVIDERS: Emergency Provider Emergency Medicine; Visit Provider Radiology Diagnostic Radiology | DX: R56.9 Unspecified convulsions (principal); R09.02 Hypoxemia | CPT/HCPCS: 70450; 71045 ==

== ENCOUNTER 2024-02-17 23:39 | Emergency (ER) | payer OTHER, SELFPAY ==
--- NOTE | ~2024-02-17 | CT_ITS ---
CLINICAL HISTORY: L flank pain radiating to back CT abdomen and pelvis without contrast Comparison: None Findings: No consolidation or effusion. Hepatomegaly. Tiny hypodense left lower pole renal cysts. No hydronephrosis. Distended stomach. Mildly distended small bowel loops in the left abdomen, with air-fluid levels measuring up to 3.3 cm series 3, image 37 to reflect ileus. Diffuse fluid-filled bowel. Appendix appears normal. Trace free pelvic fluid. No acute fracture. Prominent inguinal nodes. IMPRESSION: 1. Trace free pelvic fluid. 2. Mild proximal small bowel ileus in the left abdomen. This document has been electronically signed by: Giovanny Brooks MD on 02/18/2024 03:08:52
--- NOTE | ~2024-02-17 | CT_ITS ---
EXAMINATION: CT ABDOMEN AND PELVIS WITH CONTRAST CLINICAL INFORMATION: Abdominal pain. COMPARISON: Noncontrast CT dated February 18, 2024 at 1:46 AM. Correlated to ultrasound abdomen dated May 13, 2020. TECHNIQUE: Multidetector volumetric images were obtained from the superior aspect of the liver through the pubic symphysis following administration 85 mL of Omnipaque 350 intravenous contrast. Sagittal and coronal reformatted images were obtained on the technologist's workstation. Oral contrast: No This CT examination was performed using dose optimization techniques as appropriate, variously including the following: *Automated exposure control *Adjustment of mA and/or kV according to patient size (this includes techniques or standardized protocols for targeted exams where dose is matched to indication/reason for exam; i.e. extremities or head) *Use of iterative reconstruction technique. Total dose: 524 mGy centimeter FINDINGS: LUNG BASES: Acute airspace disease or gross pulmonary nodules. LIVER, GALLBLADDER, AND BILIARY TREE: Liver measures 15 cm. Focal hypodensity adjacent to the falciform ligament. Main portal veins and hepatic veins are patent. No pericholecystic fluid collection or gallbladder wall thickening. No intrahepatic or extrahepatic iliac ductal dilatation. PANCREAS: No focal mass. No peripancreatic fluid collection. No main pancreatic ductal dilatation. Reduced volume of the pancreatic parenchyma. SPLEEN: 9 cm. No focal mass. ADRENAL GLANDS: No nodular lesions. KIDNEYS AND URETERS: Normal enhancement pattern. No renal mass. No hydronephrosis. BLADDER: Fluid-filled nearly collapsed. GASTROINTESTINAL TRACT: No intestinal obstruction pattern. No ascites. No pneumatosis intestinalis. No pneumoperitoneum. Appendix is normal. Gas and fluid-filled distal small bowel loops with feces sign in the distal ileal loops. ABDOMINAL WALL: Small tiny fat-containing umbilical hernia. Metallic piercing in the umbilicus. LYMPH NODES: No gross lymphadenopathy. VASCULAR: No aneurysm or dissection, abdominal aorta. PELVIC VISCERA: Dominant follicles in the ovaries. OSSEOUS STRUCTURES: Castellvi type III sacralization. CT/CT abdomen pelvis w IV con IMPRESSION: Nonspecific feces sign, distal ileal loops without intestinal obstruction pattern. Mild enteritis should be considered in the correct clinical settings. Fleischner guidelines were followed. Electronically signed by: Buddy Gabriel MD 02/18/2024 10:44 AM [facility]
[2024-02-17 23:46] VITALS: BP 134/76; PULSE 82; O2SAT 98; BMI 29.9
[2024-02-18 00:33] LABS: Basophils Percent Auto 0.3 % (0-2); Eosinophils Absolute Auto 0.1 X10*3/uL (0.0-0.4); Hemoglobin 12.3 g/dl (12.0-16.0); Imm Gran Abs Auto 0.01 X10*3/uL (0.00-0.03); Imm Gran Pct Auto 0.1 % (0.0-0.4); Lymphocytes Absolute Auto 2.2 X10*3/uL (1.2-4.9); Lymphocytes Percent Auto 29.2 % (20-40); MANUAL DIFF FLAG NO; Mean Corpuscular HGB Conc 35.1 g/dl (31.0-35.0); Mean Corpuscular Hemoglobin 31.6 pg (27.0-33.0); Mean Platelet Volume 9.7 fL (9.4-12.3); Monocytes Absolute Auto 0.6 X10*3/uL (0.1-1.2); Monocytes Percent Auto 7.9 % (2-11); Neutrophils Absolute Auto 4.7 x10*3/uL (2.0-8.3); Neutrophils Percent Auto 61.5 % (45-73); Platelet Count 245 X10*3/uL (160-400); Red Blood Count 3.89 X10*6/uL (4.20-5.50); Red Cell Distribution Width 12.9 % (11.0-16.0); White Blood Count 7.6 X10*3/uL (4.8-10.8)
[2024-02-18 00:35] LABS: Appearance Urine Clear; Color Urine Yellow; Glucose Urine UA Negative (Negative); Leukocyte Esterase Urine Negative (Negative); Nitrite Urine Negative (Negative); PH 6.5 (5.0-9.0); Specific Gravity - Urine >= 1.030 (1.005-1.025); Urine Blood Negative (Negative); Urine Ketones 15 mg/dL (Negative); Urine Protein Trace mg/dL (Neg-Trace)
[2024-02-18 00:38] LABS: Bacteria Urine Trace (None Seen); Hyaline Casts Urine 0-2 /LPF (0-2); RBC Urine 0-2 /HPF (0-2); UPreg QC Valid YES; Urine Pregnancy NEGATIVE (NEGATIVE); WBC Urine 0-5 /HPF (0-5)
[2024-02-18 00:47] LABS: Amphetamine Screen Urine Not Detected (Not Detect); Barbiturates, Urine Not Detected (Not Detect); Benzodiazepines Screen Urine Not Detected (Not Detect); Buprenorphine Scr Not Detected (Not Detect); Cannabinoid Screen Urine POSITIVE (Not Detect); Cocaine Screen Urine POSITIVE (Not Detect); Fentanyl, urine Not Detected (Not Detect); Methadone Screen, Urine Not Detected (Not Detect); Opiate Screen Urine Not Detected (Not Detect); Oxycodone Screen Urine Not Detected (Not Detect); Phencyclidine Screen Urine Not Detected (Not Detect)
[2024-02-18 00:52] LABS: Acetaminophen LAB < 3 mcg/mL (<30); Salicylate < 5.0 mg/dL (15-30)
[2024-02-18 00:56] LABS: Alanine Aminotransferase 31 U/L (0-31); Albumin Level 3.8 g/dL (3.5-5.0); Alkaline Phosphatase 69 U/L (39-117); Anion Gap 11 (12-20); Aspartate Amino Transferase 39 U/L (5-31); Bilirubin Total 0.4 mg/dL (0.0-1.0); Blood Urea Nitrogen 11 mg/dL (9-16); Calcium 8.8 mg/dL (8.4-10.2); Carbon Dioxide 24 mmol/L (22-29); Chloride 106 mmol/L (96-108); Estimated Glomerular Filt Rate > 60; Ethanol < 10 mg/dL; Glucose Random 103 mg/dL (60-115); Lipase 5 U/L (8-78); Potassium 3.3 mmol/L (3.3-5.1); Sodium 138 mmol/L (135-145); Total Protein 6.5 g/dL (6.5-8.0)
[2024-02-18 01:13] VITALS: BP 141/69; PULSE 83; RESP 16; TEMP 36.1; O2SAT 100
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
--- NOTE | 2024-02-18 01:42 | PC.NURSE ---
atfredi held at this time as pt sleeping.
--- NOTE | 2024-02-18 08:18 | PC.NURSE ---
CARE team at bedside to evaluate pt
[2024-02-18 08:29] VITALS: BP 121/73; PULSE 90; RESP 14; TEMP 36.8; O2SAT 98
--- NOTE | 2024-02-18 08:39 | PC.NURSE ---
Pt c/o N/V/abd pain; made aware; will tx per orders
--- NOTE | 2024-02-18 09:42 | PC.NURSE ---
CPK from last night elevated; repeat CPK drawn/pending; pt to have abd CT scan with IV contrast; neg Upreg
[2024-02-18] MEDS: ondansetron HCL 4 MG/2 ML VIAL IVPUSH (10:00)
[2024-02-18] MEDS: iohexoL 350 MG/ML 100 ML INFUS..BTL IV (10:23)
[2024-02-18 12:09] VITALS: BP 121/73; PULSE 90; RESP 14; TEMP 36.8; O2SAT 98
--- NOTE | 2024-02-18 12:09 | PC.NURSE ---
this pt got dressed and was discharged by jamie- katrina limon to get her a lyft.
[2024-02-18 14:07] LABS: CT PCR NOT DETECTED (Not Detect.); NG PCR NOT DETECTED (Not Detect.)
== END 2024-02-18 12:10 | disposition home or self-care (01) ==
PROVIDERS: Emergency Medicine; Emergency Provider Emergency Medicine; PCP Family Medicine
DX: F14.10 Cocaine abuse, uncomplicated (principal); R10.2 Pelvic and perineal pain; Z51.81 Encounter for therapeutic drug level monitoring; Z79.899 Other long term (current) drug therapy
CPT/HCPCS: 36415; 74176; 74177; 80053; 80143; 80179; 80307; 81001; 81025; 82550; 83690; 85025; 87491; 87591; 96374; 99285; J2405; Q9967; S9485

== ENCOUNTER → 2024-02-18 01:24 | Outpatient (BNV) | payer OTHER, SELFPAY | PROVIDERS: Emergency Provider Emergency Medicine; PCP Family Medicine; Visit Provider Radiology Diagnostic Radiology | DX: R10.9 Unspecified abdominal pain (principal) | CPT/HCPCS: 74176; 74177 ==

== ENCOUNTER 2024-03-13 22:39 | Emergency (ER) | payer OTHER, SELFPAY ==
[2024-03-13 22:55] VITALS: BP 132/79; PULSE 122; RESP 20; TEMP 36.8; O2SAT 94
[2024-03-13] MEDS: diphenhydrAMINE HCL 50 MG/ML VIAL IM (22:55)
[2024-03-13] MEDS: LORazepam 2 MG/ML VIAL IM (22:55)
[2024-03-13] MEDS: Haloperidol Lactate 5 MG/ML VIAL IM (22:55)
--- NOTE | 2024-03-13 22:55 | PC.NURSE ---
pt arrived on 4 point restraints, with PD, and ems, pt requesting meds tp calm her down, admits to cocaine and PCP, use today. while taking, off restraints pt became restless, and uncooperative. restraints re applied, and medicated
--- NOTE | 2024-03-13 22:57 | ECG_ITS ---
Test Reason : TACHYCARDIA Blood Pressure : */* mmHG Vent. Rate : 131 BPM Atrial Rate : 131 BPM P-R Int : 144 ms QRS Dur : 86 ms QT Int : 310 ms P-R-T Axes : 72 94 32 degrees QTcB Int : 457 ms Sinus tachycardia Possible Left atrial enlargement Rightward axis Borderline ECG When compared with ECG of 16-Feb-2024 02:26, No significant change was found Referred By: Myles Gannon Electronically Signed By: DELVIS SANTIZO
[2024-03-13 23:10] VITALS: BP 123/72; PULSE 108; RESP 20; O2SAT 96; BMI 29.3
--- NOTE | 2024-03-13 23:10 | PC.NURSE ---
pt in 4 point restraints still restless, restraints checked, +cms
--- NOTE | 2024-03-13 23:15 | PC.NURSE ---
pt calm, cooperative, off restraints, warm blanked offered.
--- NOTE | 2024-03-13 23:24 | PC.NURSE ---
pt seen by provider, meds ordered, and pt allergies note, per md oky to give haldol
[2024-03-13 23:25] VITALS: BP 99/59; PULSE 109; RESP 20; O2SAT 95
[2024-03-13 23:40] VITALS: BP 100/54; PULSE 106; RESP 18; O2SAT 96
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
[2024-03-13 23:55] VITALS: BP 102/72; PULSE 104; RESP 18; O2SAT 94
[2024-03-14] VITALS: BP 104/72; PULSE 103; RESP 28; O2SAT 94
[2024-03-14 00:10] VITALS: BP 114/54; PULSE 100; RESP 20; O2SAT 94
--- NOTE | 2024-03-14 00:23 | PC.NURSE ---
PT in bed resting comfortably, eyes closed, respiration even , unlabored, PD at bed side
--- NOTE | 2024-03-14 02:39 | PC.NURSE ---
pt sleeping, resp norm, bp 112/71 , hr 91 . 95% on room air
[2024-03-14 02:42] VITALS: BP 112/71; PULSE 91; RESP 18; O2SAT 95
--- NOTE | 2024-03-14 03:45 | PC.NURSE ---
pt handed over to DIOR Damon
[2024-03-14 06:24] VITALS: BP 112/71; PULSE 91; RESP 18; TEMP -17.7; TEMP 0; O2SAT 95
== END 2024-03-14 06:41 ==
PROVIDERS: Emergency Provider Internal Medicine
DX: F16.188 Hallucinogen abuse with other hallucinogen-induced disorder (principal); R45.1 Restlessness and agitation; F14.10 Cocaine abuse, uncomplicated; F31.12 Bipolar disorder, current episode manic without psychotic features, moderate; Z59.00 Homelessness unspecified; Z79.899 Other long term (current) drug therapy
CPT/HCPCS: 93005; 96372; 99285; J1200; J1630; J2060

== ENCOUNTER → 2024-03-13 22:57 | Outpatient (BNV) | payer OTHER, SELFPAY | PROVIDERS: Emergency Provider Internal Medicine; Visit Provider Internal Medicine | DX: R00.0 Tachycardia, unspecified (principal) | CPT/HCPCS: 93010 ==

== ENCOUNTER 2025-01-19 18:02 | Inpatient (IN) | payer OTHER, SELFPAY ==
[2025-01-19 18:38] VITALS: BMI 25.0
[2025-01-19 18:45] VITALS: BP 108/60; PULSE 92; RESP 18; TEMP 36.9; O2SAT 96
[2025-01-19 20:54] LABS: MANUAL DIFF FLAG NO
[2025-01-19 20:57] LABS: Hematocrit 38.5 % (37.0-47.0); Hemoglobin 13.5 g/dl (12.0-16.0); Imm Gran Abs Auto 0.04 X10*3/uL (0.00-0.03); Imm Gran Pct Auto 0.3 % (0.0-0.4); Lymphocytes Absolute Auto 4.3 X10*3/uL (1.2-4.9); Mean Corpuscular HGB Conc 35.1 g/dl (31.0-35.0); Mean Corpuscular Hemoglobin 31.2 pg (27.0-33.0); Mean Corpuscular Volume 88.9 fL (80.0-98.0); NRBC Abs Auto 0.000 X10*3/uL (0.0-0.012); NRBC Pct Auto 0.0 /100WBC (0.0-0.2); Platelet Count 335 X10*3/uL (160-400); Red Blood Count 4.33 X10*6/uL (4.20-5.50); White Blood Count 15.5 X10*3/uL (4.8-10.8)
[2025-01-19 21:10] LABS: Acetaminophen LAB < 3 mcg/mL (<30); Salicylate < 5.0 mg/dL (15-30)
[2025-01-19 21:10] LABS: Alanine Aminotransferase 17 U/L (0-31); Albumin Level 4.9 g/dL (3.5-5.0); Alkaline Phosphatase 60 U/L (39-117); Anion Gap 11 (12-20); Aspartate Amino Transferase 17 U/L (5-31); Blood Urea Nitrogen 20 mg/dL (9-16); Calcium 9.6 mg/dL (8.4-10.2); Carbon Dioxide 25 mmol/L (22-29); Chloride 108 mmol/L (96-108); Creatinine Clr Calc Pharmacy 102.2; Estimated Glomerular Filt Rate > 60; Potassium 3.5 mmol/L (3.3-5.1); Sodium 140 mmol/L (135-145); Total Protein 7.4 g/dL (6.5-8.0)
--- NOTE | 2025-01-19 21:33 | ED_ITS ---
HPI - Psych General Chief Complaint: Psychiatric Symptoms Stated Complaint: Psych Consult Time Seen by Provider: 01/19/25 19:43 History of Present Illness ED Provider: Ledy Medina NP HPI Narrative: 24-year-old female with medical history significant for bipolar 1 disorder, cannabis use, cocaine use, housing instability presents to the ED from her workplace reporting that she is very depressed. Patient denies any active suicidal ideations or plan. Denies any homicide ideations. Denies any chest pain or pressure, shortness of breath from abdominal pain, nausea or vomiting, urinary complaints. Denies drug use today. Related Data Home Medications ?Medication ?Instructions ?Recorded ?Confirmed No Known Home Meds 01/21/25 01/21/25 Allergies Allergy/AdvReac Type Severity Reaction Status Date / Time haldol AdvReac Intermediate dystonia Uncoded 01/19/25 18:41 Review of Systems 2 Review of Systems: ROS is otherwise negative unless mentioned in HPI. PMFSH Past Medical History Medical History Drug overdose Cocaine use disorder Bipolar 1 disorder, mixed, severe No known health problems Social History Social History Household Members: Friend(s) Housing: Homeless Do you presently have visiting nurse or other home services: No Alcohol intake: current Alcohol intake frequency: a few times a week Alcohol type: beer Patient Tobacco Use Status: Never used Tobacco Smoked in Last 30 Days: No e-Cigarette/Vaping Use: Former Use Patient Interested in Nicotine Replacement: Yes Patient Given Instructions on How to Stop Smoking: Yes Date Education Initiated: 01/21/25 Second Hand Smoke Exposure: No Substance Use Type: Crack/Cocaine Currently Displaying Signs/Symptoms of Drug Intoxication Withdrawal: No Have you been hit, kicked, punched, or otherwise hurt by someone within the past year? If so, by whom?: No Do you feel safe in your current relationship?: No Current Relationship Is there a partner from a previous relationship who is making you feel unsafe now?: No Are you made to feel afraid or neglected: No Spiritual Healthcare Practices: None Restoration Healthcare Practices: None Cultural Healthcare Practices: None Advance Directives: No Advance Directives Information Provided: No Do you have thoughts of harming others: None Do you have a plan to hurt others: No Plan Recently lost weight without trying: No How much weight loss: Not applicable Eating poorly because of decreased appetite: Yes Nutrition screen score: 1 Nutrition Risks: No Nutritional Risk Patient : No : No Poor oral hygiene: No service: No Sexual orientation: Straight/Heterosexual Physical Exam 2 Exam: Exam: Nursing notes and vital signs reviewed. Constitutional: Well-appearing, NAD. Alert. Oriented X3. Eyes: EOMI. ENT: Pharynx normal. Neck: Normal inspection. Neck supple. CVS: Normal heart rate and rhythm. Pulses normal. Respiratory: No respiratory distress. Breath sounds normal. Abdomen: Nondistended. Skin: Skin warm and dry. Normal skin color. Extremities: No lower extremity edema. Neuro: Oriented X 3. No motor deficit. Vital Signs: Vital Signs: Last Vital Signs Temp 98.1 F 01/25/25 08:00 Pulse 71 01/25/25 08:00 Resp 15 01/25/25 08:00 BP 99/49 L 01/25/25 08:00 Pulse Ox 95 01/25/25 08:00 O2 Del Method Room Air 01/25/25 08:00 BMI result Body Mass Index 25.0 Medications Administered Generic Name Dose Route Start Last Admin Trade Name Freq PRN Reason Stop Dose Admin Acetaminophen 650 mg 01/21/25 13:06 01/24/25 19:44 Acetaminophen 325 Mg Tablet PO 650 mg Q6H PRN Administration Headache/Pain, Scale 1-10 Dicyclomine HCl 10 mg 01/24/25 21:57 01/24/25 22:08 Dicyclomine Hcl 10 Mg Capsule PO 10 mg QIDACHS PRN Administration abdominal pain Divalproex Sodium 1,500 mg 01/21/25 21:00 01/24/25 21:40 Divalproex Sodium Er 500 Mg Tab.Er.24h PO 1,500 mg BEDTIME DEB Administration Hydroxyzine HCl 25 mg 01/21/25 13:06 01/25/25 10:55 Hydroxyzine Hcl 25 Mg Tablet PO 25 mg Q6H PRN Administration mild anxiety [place] Carbonate 600 mg 01/21/25 21:00 01/24/25 21:40 [place] Carbonate Er 300 Mg Tablet.Er PO 600 mg BEDTIME DEB Administration [place] Carbonate 450 mg 01/22/25 09:00 01/25/25 08:07 [place] Carbonate Er 450 Mg Tablet.Er PO 450 mg DAILY DEB Administration Olanzapine 20 mg 01/21/25 21:00 01/24/25 21:41 Olanzapine 10 Mg Tablet PO 20 mg BEDTIME DEB Administration Trazodone HCl 50 mg 01/21/25 13:06 01/24/25 21:41 Trazodone Hcl 50 Mg Tablet PO 50 mg BEDTIME MRX1 PRN Administration Insomnia Discontinued Medications Generic Name Dose Route Start Last Admin Trade Name Greta PRN Reason Stop Dose Admin Acetaminophen 975 mg 01/20/25 14:05 01/20/25 14:22 Acetaminophen 325 Mg Tablet PO 01/20/25 14:06 975 mg ONCE ONE Administration Acetaminophen 975 mg 01/20/25 22:53 01/21/25 04:04 Acetaminophen 325 Mg Tablet PO 01/20/25 22:54 975 mg ONCE ONE Administration Acetaminophen 650 mg 01/21/25 08:49 01/21/25 08:59 Acetaminophen 325 Mg Tablet PO 01/21/25 08:50 650 mg ONCE ONE Administration Docusate Sodium 200 mg 01/20/25 14:05 01/20/25 14:22 Docusate Sodium 100 Mg Capsule PO 01/20/25 14:06 200 mg ONCE ONE Administration Influenza Virus Vaccine 0.5 ml 01/21/25 16:13 01/21/25 16:20 Flu Vacc [id number](6mo Up)/Pf 0.5 Ml Syringe IM 01/21/25 16:14 0.5 ml .ONCE ONE Administration Nicotine 21 mg 01/22/25 09:00 01/22/25 08:53 Nicotine 21 Mg Patch.Td24 TRANSDERMA Not Given DAILY DEB Polyethylene Glycol 17 gm 01/20/25 14:05 01/20/25 14:22 Polyethylene Glycol 3350 17 Gm Powd.Pack PO 01/20/25 14:06 17 gm ONCE ONE Administration Medical Decision Making Medical Decision Making MDM Narrative: 8:00 PM 01/19/2025 (Ledy Medina NP): Upon my initial assessment of this patient, she presents reporting severe depression. Denies any SI, HI. Denies drug use today. She has no acute medical complaints. We will order basic labs, care team evaluation, and reassess. 9:35 PM-- Affect is flat. Patient further reports to [facility] that she is suicidal but with no plan. She has not had her medications for bipolar, the duration/timing without medications is unclear. We will plan for a bed search for inpatient psych admission. Labs overall reassuring. Differential Diagnosis Differential Diagnoses: The differential diagnosis associated with the presentation includes Mental health evaluation, depression Admission/Observation Consideration of admission/observation: Escalation of care including admission/observation considered Consult Healthcare Provider Management of the patient was discussed with: Behavioral Health Provider Lab Data MDM Lab Attestation statement: I reviewed the patient's lab results. 01/22/25 08:20 01/22/25 08:33 Labs: Lab Results 01/19/25 01/19/25 01/21/25 Range/Units 20:46 20:47 12:06 WBC 15.5 H (4.8-10.8) X10*3/uL RBC 4.33 (4.20-5.50) X10*6/uL Hgb 13.5 (12.0-16.0) g/dl Hct 38.5 (37.0-47.0) % MCV 88.9 (80.0-98.0) fL MCH 31.2 (27.0-33.0) pg MCHC 35.1 H (31.0-35.0) g/dl RDW 12.7 (11.0-16.0) % Plt Count 335 D (160-400) X10*3/uL MPV 10.2 (9.4-12.3) fL Immature Gran % (Auto) 0.3 (0.0-0.4) % Neut % (Auto) 63.7 (45-73) % Lymph % (Auto) 27.9 (20-40) % [place] % (Auto) 7.2 (2-11) % Eos % (Auto) 0.5 (0-4) % Baso % (Auto) 0.4 (0-2) % Lymph # (Auto) 4.3 (1.2-4.9) X10*3/uL [place] # (Auto) 1.1 (0.1-1.2) X10*3/uL Eos # (Auto) 0.1 (0.0-0.4) X10*3/uL Baso # (Auto) 0.1 (0.0-0.2) X10*3/uL Abs Immat Gran (auto) 0.04 H (0.00-0.03) X10*3/uL Absolute Neuts (auto) 9.9 H (2.0-8.3) x10*3/uL Absolute Nucleated RBC 0.000 (0.0-0.012) X10*3/uL Nucleated RBC % (auto) 0.0 (0.0-0.2) /100WBC Sodium 140 (135-145) mmol/L Potassium 3.5 (3.3-5.1) mmol/L Chloride 108 (96-108) mmol/L Carbon Dioxide 25 (22-29) mmol/L Anion Gap 11 L (12-20) BUN 20 H (9-16) mg/dL Creatinine 0.77 (0.5-1.4) mg/dL Estim Creat Clear Calc 102.2 Estimated GFR > 60 Random Glucose 109 (60-115) mg/dL Calcium 9.6 D (8.4-10.2) mg/dL Total Bilirubin 0.4 (0.0-1.0) mg/dL AST 17 (5-31) U/L ALT 17 (0-31) U/L Alkaline Phosphatase 60 (39-117) U/L Total Protein 7.4 (6.5-8.0) g/dL Albumin 4.9 (3.5-5.0) g/dL Urine Color Urine Appearance Urine pH (5.0-9.0) Ur Specific [place] (1.005-1.025) Urine Protein (Neg-Trace) mg/dL Urine Glucose (UA) (Negative) mg/dL Urine Ketones (Negative) mg/dL Urine Blood (Negative) Urine Nitrite (Negative) Ur Leukocyte Esterase (Negative) Urine Test (NEGATIVE) Salicylates < 5.0 L (15-30) mg/dL Urine Opiates Screen Not Detected (Not Detect) Ur Buprenorphine Scrn TNP Ur Oxycodone Screen TNP Urine Methadone Screen Not Detected (Not Detect) ng/mL Urine Fentanyl Screen Not Detected (Not Detect) Acetaminophen < 3 (<30) mcg/mL Ur Barbiturates Screen Not Detected (Not Detect) Ur Phencyclidine Scrn Not Detected (Not Detect) Ur Amphetamines Screen Not Detected (Not Detect) U Benzodiazepines Scrn Not Detected (Not Detect) Urine Cocaine Screen Not Detected (Not Detect) U Marijuana (THC) Screen POSITIVE H (Not Detect) Ethyl Alcohol < 10 mg/dL 01/21/25 Range/Units 12:09 WBC (4.8-10.8) X10*3/uL RBC (4.20-5.50) X10*6/uL Hgb (12.0-16.0) g/dl Hct (37.0-47.0) % MCV (80.0-98.0) fL MCH (27.0-33.0) pg MCHC (31.0-35.0) g/dl RDW (11.0-16.0) % Plt Count (160-400) X10*3/uL MPV (9.4-12.3) fL Immature Gran % (Auto) (0.0-0.4) % Neut % (Auto) (45-73) % Lymph % (Auto) (20-40) % [place] % (Auto) (2-11) % Eos % (Auto) (0-4) % Baso % (Auto) (0-2) % Lymph # (Auto) (1.2-4.9) X10*3/uL [place] # (Auto) (0.1-1.2) X10*3/uL Eos # (Auto) (0.0-0.4) X10*3/uL Baso # (Auto) (0.0-0.2) X10*3/uL Abs Immat Gran (auto) (0.00-0.03) X10*3/uL Absolute Neuts (auto) (2.0-8.3) x10*3/uL Absolute Nucleated RBC (0.0-0.012) X10*3/uL Nucleated RBC % (auto) (0.0-0.2) /100WBC Sodium (135-145) mmol/L Potassium (3.3-5.1) mmol/L Chloride (96-108) mmol/L Carbon Dioxide (22-29) mmol/L Anion Gap (12-20) BUN (9-16) mg/dL Creatinine (0.5-1.4) mg/dL Estim Creat Clear Calc Estimated GFR Random Glucose (60-115) mg/dL Calcium (8.4-10.2) mg/dL Total Bilirubin (0.0-1.0) mg/dL AST (5-31) U/L ALT (0-31) U/L Alkaline Phosphatase (39-117) U/L Total Protein (6.5-8.0) g/dL Albumin (3.5-5.0) g/dL Urine Color Yellow Urine Appearance Cloudy Urine pH 6.5 (5.0-9.0) Ur Specific [place] >= 1.030 H (1.005-1.025) Urine Protein Trace (Neg-Trace) mg/dL Urine Glucose (UA) Negative (Negative) mg/dL Urine Ketones Trace (Negative) mg/dL Urine Blood Negative (Negative) Urine Nitrite Negative (Negative) Ur Leukocyte Esterase Negative (Negative) Urine Test NEGATIVE (NEGATIVE) Salicylates (15-30) mg/dL Urine Opiates Screen (Not Detect) Ur Buprenorphine Scrn Ur Oxycodone Screen Urine Methadone Screen (Not Detect) ng/mL Urine Fentanyl Screen (Not Detect) Acetaminophen (<30) mcg/mL Ur Barbiturates Screen (Not Detect) Ur Phencyclidine Scrn (Not Detect) Ur Amphetamines Screen (Not Detect) U Benzodiazepines Scrn (Not Detect) Urine Cocaine Screen (Not Detect) U Marijuana (THC) Screen (Not Detect) Ethyl Alcohol mg/dL Independent Historian None External Record Review External record reviewed: Other (Psychiatric progress notes) Chronic Conditions Patient?s care impacted by: Other (Bipolar 1 there is no wasting) Social Determinants Patient?s care significantly limited by Social Determinants of Health including: Inadequate housing, Problems related to primary support group and Problems related to employment Discharge Plan Discharge Clinical Impression: Depression Patient Disposition: Admitted As Inpatient Interventions: Admission Worksheet (ED) Last Done: 01/21/25 12:21 Discharge Date/Time: 01/21/25 13:24
--- NOTE | 2025-01-19 22:00 | PC.NURSE ---
Assumed care at 1845. No orders placed. Meal tray ordered. Safety tray ordered. Care Team consult placed. Patient presents with bizarre behavior and thought blocking. When questioned, patient states I'm just waiting for the doctor to see me for my stomach ache. Denies SI/HI/AVH. Agreeable to alert staff if feeling unsafe. Does endorse increased depression. UA collection attempted multiple times, patient unable to produce urine. Given fluids. Will continue to re-attempt. Blood work completed. Pt has a history of aggression. Will continue to monitor for behavioral control.
--- NOTE | 2025-01-19 22:14 | PC.NURSE ---
Med req completed per patient. Does not present to be a good historian of current medications/last known use.
--- OUTSIDE RECORDS SUMMARY | 2025-01-19 23:15 | XMS_ITS ---
Author Name [facility] Organization Unknown Care Team Organization Name Specialty Phone Email Start Date End Da te [facility] JACKSON FORREST Primary [facility] [email or web address] 06/18/2022 4 [facility] Asael Pate Primary Care 04/18/2022 4 [facility] Julia Shelton Primary Care 12/19/2021 4
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
--- OUTSIDE RECORDS SUMMARY | 2025-01-19 23:15 | XMS_ITS | Encounter Summary ---
Author Organization [facility] Prior to 12/13/2023 Address [address] [place] [address] Care Team Providers Care Museum Exhibit Technician Name Role Phone Edwina Rogers MD Primary Care Provider + Edwina Rogers MD Unavailable [phone] Encounter Details Date Type Department Care Team Description 02/21/2022 Telephone Adult Medicine [address] [id number] Edwina Rogers MD [address] [place] [phone] Social History Tobacco Use Types Packs/Day Years Used Date Smoking Tobacco: Never Smokeless Tobacco: Never Comments:mom smokes outside Alcohol Use Standard Drinks/Week Comments Not Asked 0 (1 standard drink = 0.6 oz pur e alcohol) Sex Assigned at Date Recorded Not on file documented as of this encounter Plan of Treatment Not on file documented as of this encounter Visit Diagnoses Not on filedocumented in this encounter Care Teams Museum Exhibit Technician Relationship Specialty Start Date End Date Edwina Rogers MD [address] [place] [id number] PCP - General Internal Medicine 02/19/22 Edwina Rogers MD [address] [place] [id number] Internal Medicine 02/19/22 documented as of this encounter
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
--- OUTSIDE RECORDS SUMMARY | 2025-01-19 23:15 | XMS_ITS | Encounter Summary ---
Author Organization [facility] Prior to 12/13/2023 Address [address] [place] [address] Care Team Providers Care Electric Motor Winder Name Role Phone Naina Brown DO Primary Care Provider Unav ailable Edwina Rogers MD Primary Care Provider + Edwina Rogers MD Unavailable Encounter Details Date Type Department Care Team Description 04/29/2019 Hospital Medical Records [address] [place] [id number] Tj Carlos Np Social History Tobacco Use Types Packs/Day Years [...] on filedocumented in this encounter Care Teams Electric Motor Winder Relationship Specialty Start Date End Date Naina Brown DO PCP - General Pediatrics 04/28/19 02/18/22 Edwina Rogers MD [address] [place] [phone] PCP - General Internal Medicine 02/19/22 Edwina Rogers MD [address] [place] [phone] Internal Medicine 02/19/22 documented as of this encounter
--- OUTSIDE RECORDS SUMMARY | 2025-01-19 23:15 | XMS_ITS | Encounter Summary ---
Author Organization [facility] Prior to 12/13/2023 Address [address] [place] [address] Care Team Providers Care Digital Community Manager Name Role Phone Willow Solo MD Primary Care Provider Unavailab le Naina Brown DO Primary Care Provider Unav ailNaina Dhillon DO Primary Care Provider Unav ailable Edwina Rogers MD Primary Care Provider + Edwina Rogers MD Unavailable [phone] Reason for Visit * Reason Onset Date Comments DCF 03/13/2017 Encounter Details Date Type Department Care Team Description 03/13/2017 Telephone Pediatrics - [address] [address] Willow Solo MD [facility] Social History Tobacco Use Types Packs/Day Years Used Date Smoking Tobacco: Never Smokeless Tobacco: Never Comments:mom smokes outside Alcohol Use Standard Drinks/Week Comments Not Asked 0 (1 standard drink = 0.6 oz pur e alcohol) Sex Assigned at Date Recorded Not on file documented as of this encounter Miscellaneous Notes * Telephone Encounter - Kaleigh Wise L.P.N. - 03/13/2017 2:20 PM EST Left message to return call, DCF out of office until 02/27/17. * Telephone Encounter - Xin Roberts - 03/13/2017 12:08 PM EST Name and title of caller: Juan Carlos rahman Active 51-a : 2000 Age: 16 yr. Is this an active 51A case: Yes. Case is currently active. Message forwarded to nurse to provide information. Message forwarded to nurse for follow up documented in this encounter Plan of Treatment Not on file documented as of this encounter Visit Diagnoses Not on filedocumented in this encounter Care Teams Digital Community Manager Relationship Specialty Start Date End Date Willow Solo MD PCP - General Pediatrics 06/18/16 01/22/19 Naina Brown DO PCP - General Pediatrics 01/23/19 04/27/19 Naina Brown DO PCP - General Pediatrics 04/28/19 02/18/22 Edwina Rogers MD [address] [place] [phone] PCP - General Internal Medicine 02/19/22 Edwina Rogers MD [address] [place] [phone] Internal Medicine 02/19/22 documented as of this encounter
--- OUTSIDE RECORDS SUMMARY | 2025-01-19 23:15 | XMS_ITS | Encounter Summary ---
Author Organization [facility] Prior to 12/13/2023 Address [address] [place] [address] Care Team Providers Care Electrotype Molder Name Role Phone Naina Brown DO Primary Care Provider Unav ailable Edwina Rogers MD Primary Care Provider + Edwina Rogers MD Unavailable [phone] Encounter Details Date Type Department Care Team Description 06/16/2020 Telephone [facility] - [address] [address] Naina Brown DO Social History Tobacco Use Types Packs/Day Years [...] on filedocumented in this encounter Care Teams Electrotype Molder Relationship Specialty Start Date End Date Naina Brown DO PCP - General Pediatrics 04/28/19 02/18/22 Edwina Rogers MD [address] [place] [id number] PCP - General Internal Medicine 02/19/22 Edwina Rogers MD [address] [place] [phone] Internal Medicine 02/19/22 documented as of this encounter
[2025-01-20 06:40] VITALS: BP 133/70; PULSE 96; TEMP 35.1; O2SAT 98
--- NOTE | 2025-01-20 07:55 | PC.NURSE ---
Assumed care of patient at 0645, patient appears to be in no apparent distress this am, sleeping, respirations even and unlabored. Continue plan of care for IPLOC
--- NOTE | 2025-01-20 08:42 | ECG_ITS ---
Test Reason : R/O PROLONGED QT Blood Pressure : */* mmHG Vent. Rate : 65 BPM Atrial Rate : 65 BPM P-R Int : 122 ms QRS Dur : 90 ms QT Int : 380 ms P-R-T Axes : 24 84 61 degrees QTcB Int : 395 ms Normal sinus rhythm with sinus arrhythmia Normal ECG When compared with ECG of 13-Mar-2024 23:06, Vent. rate has decreased by 66 bpm T wave inversion no longer evident in Inferior leads Referred By: Mariana Jennings Electronically Signed By: ROOPA BERMUDEZ MD
--- NOTE | 2025-01-20 10:42 | PC.NURSE ---
pt attempted to give urine, unable to provide at this time
--- NOTE | 2025-01-20 11:21 | PC.NURSE ---
Pt awakens to use bathroom, pt endorsing constipation, MD aware, no new orders at this time. Patient remains calm and cooperative, offering no complaints to this RN
[2025-01-20 13:49] VITALS: BP 119/61; PULSE 83; RESP 18; TEMP 36.2; O2SAT 98
[2025-01-21 00:21] VITALS: BP 131/63; PULSE 75; RESP 16; TEMP 37.1; O2SAT 100
--- NOTE | 2025-01-21 04:06 | PC.NURSE ---
pt has gone to the bathroom several times throughout the shift and has reported unable to provide urine sample and still feeling constipated. Pt reports last BM being yesterday .
--- NOTE | 2025-01-21 07:16 | PC.NURSE ---
Assumed care, report received. Pt wakes and uses the bathroom, she is asked again to provide a urine sample, she states I cant I'm constipated
[2025-01-21 08:48] VITALS: BP 113/73; PULSE 93; RESP 14; TEMP 36.4; O2SAT 98
[2025-01-21 12:30] LABS: Appearance Urine Cloudy; Glucose Urine UA Negative (Negative); PH 6.5 (5.0-9.0); Specific Gravity - Urine >= 1.030 (1.005-1.025)
[2025-01-21 13:07] VITALS: BP 119/79; PULSE 85; RESP 16; TEMP 35.8; O2SAT 99
[2025-01-21 13:10] VITALS: BMI 27.3
--- NOTE | 2025-01-21 13:57 | HO.PSYADMNOT ---
HPI Date of Service: 01/21/25 Chief Complaint: crisis Sources of Information: patient interviewed, chart reviewed and crisis/core team assessment reviewed HPI Subjective Notes: Orellana Warning and Conditional Voluntary Narrative: Patient is a 24-year-old female with history of bipolar disorder, cocaine use disorder and cannabis use disorder who self presented to ER due to increased depression secondary to life stressors. Per crisis report, patient reported depression and stomach pain. History of suicide attempts and non medication compliance. Patient reports worsening depression but is unable to identify triggers. She reported suicidal ideation with no plan. Appears thought blocking throughout the assessment. Denies HI/VH/AH. She reports poor sleep and appetite. Did not appear to be responding to internal stimuli. She reports daily marijuana use. During admission assessment, patient presents alert and oriented x3. Calm and cooperative. Appears thought blocking at times. Patient reports feeling depressed ; patient stated, everything is making me depressed. Work, family situation and not getting along with them. I don't feel like I have support. Sometimes I want to give up but I'm trying to keep my head high . Patient denies HI/VH/AH. Passive SI with no plan or intent. Patient reports she came to the hospital with hopes of being able to talk to somebody . She reports being medication compliant; will obtain lithium level and valproic acid level. She reports poor sleep due to nightmares. Past Psychiatric History: hx of multiple inpatient psychiatric hospitalizations. Therapist: Dottie ROACH She reports not having an outpatient prescriber. hx of SIB via cutting. pt states (a few months ago). hx of SA via OD on pills. pt can not recall time frame. Medication trials: risperidone, depakote, lithium, zyprexa Medical Evaluation Reviewed: Yes [facility] Medical History Drug overdose Cocaine use disorder Bipolar 1 disorder, mixed, severe No known health problems Family History: paternal grandmother- depression Social History: Pt was born in [place]. Raised by both parents. She has 2 sisters and 2 brothers. Lives with friend. single. no kids. 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 highest level of education completed, 10th grade, did not obtain GED. Substance History: hx of cocaine and marijuana use. Trauma History: denies Diagnostics Vital Signs (24Hr): Vital Signs - 24 hr 01/21/25 00:21 01/21/25 08:48 01/21/25 13:07 Temperature 98.7 F 97.5 F 96.4 F L Pulse Rate 75 93 85 Respiratory Rate 16 14 16 Blood Pressure 131/63 113/73 119/79 Pulse Oximetry 100 98 99 Oxygen Delivery Method Room Air Room Air Room Air BMI result Body Mass Index 27.3 Labs 01/19/25 20:46 01/19/25 20:46 Labs: Laboratory Results - last 48 hr 01/19/25 01/19/25 01/21/25 20:46 20:47 12:09 WBC 15.5 H RBC 4.33 Hgb 13.5 Hct 38.5 MCV 88.9 MCH 31.2 MCHC 35.1 H RDW 12.7 Plt Count 335 D MPV 10.2 Immature Gran % (Auto) 0.3 Neut % (Auto) 63.7 Lymph % (Auto) 27.9 [place] % (Auto) 7.2 Eos % (Auto) 0.5 Baso % (Auto) 0.4 Lymph # (Auto) 4.3 [place] # (Auto) 1.1 Eos # (Auto) 0.1 Baso # (Auto) 0.1 Abs Immat Gran (auto) 0.04 H Absolute Neuts (auto) 9.9 H Absolute Nucleated RBC 0.000 Nucleated RBC % (auto) 0.0 Sodium 140 Potassium 3.5 Chloride 108 Carbon Dioxide 25 Anion Gap 11 L BUN 20 H Creatinine 0.77 Estim Creat Clear Calc 102.2 Estimated GFR > 60 Random Glucose 109 Calcium 9.6 D Total Bilirubin 0.4 AST 17 ALT 17 Alkaline Phosphatase 60 Total Protein 7.4 Albumin 4.9 Urine Color Yellow Urine Appearance Cloudy Urine pH 6.5 Ur Specific [place] >= 1.030 H Urine Protein Trace Urine Glucose (UA) Negative Urine Ketones Trace Urine Blood Negative Urine Nitrite Negative Ur Leukocyte Esterase Negative Salicylates < 5.0 L Acetaminophen < 3 Ethyl Alcohol < 10 Meds/Allergies Meds Home Medications ?Medication ?Instructions ?Recorded ?Confirmed ?Type No Known Home Meds 01/21/25 01/21/25 History Allergies Allergies Allergy/AdvReac Type Severity Reaction Status Date / Time haldol AdvReac Intermediate dystonia Uncoded 01/19/25 18:41 Mental Status Exam Mental Status Exam Patient Appearance: Appropriate Patient Orientation: Person, Place, Time and Situation Level of Consciousness: Awake and Alert Patient Behavior: Appropriate, Cooperative and Good Eye Contact Mood Description: Depressed Affect Description: Depressed Ability to Follow Directions: Good Speech Pattern: Clear and Long Pauses Hallucinations: None Delusions: Not Present Thought Process: Intact and Slowed Thinking Thought Content: positive for Thought Blocking Assessment & Plan Assessment & Plan (1) Bipolar 1 disorder, manic, moderate: Status: Acute Code(s): F31.12 - Bipolar disorder, current episode manic without psychotic features, moderate (2) Cannabis use disorder: Status: Acute Code(s): F12.90 - Cannabis use, unspecified, uncomplicated Plan Patient is a 24-year-old female with history of bipolar disorder, cocaine use disorder and cannabis use disorder who self presented to ER due to increased depression secondary to life stressors. Plan: CV 15 minute safety checks Obtain collateral Encourage groups Continue home medications Obtain labs Referral to outpatient prescriber Discharge planning Patient educated on: diagnosis and medication risk/benefits Reason for continued inpatient stay Substantial Risk for: med/psych decompensation Statement Statement: I have reviewed the history and physical and performed a pertinent examination on my patient. No changes have occurred unless specified. If the History and Physical was not performed prior to admission, the Hospitalist's service will be consulted for completing the admission physical. Time Spent With Patient Time: Total time managing care of this patient today _60___ minutes.
--- NOTE | 2025-01-21 14:54 | PHA.MEDREC ---
Addendum entered by Skip Sheppard PharmD 01/21/25 14:59: Outpatient Original Note: Pharmacy Consult ? Medication Reconciliation Pharmacy has completed the medication reconciliation. Per RN med rec attempt, patient is a poor historian. Called [facility], no history of fills since February of 2024. Called inpatient [facility] pharmacy, no history of medications since November and December of 2023. Took medications off of med rec.
[2025-01-21] MEDS: Flu Vacc TS2025-26(6mo up)/PF 0.5 ML SYRINGE IM (16:20)
--- NOTE | 2025-01-21 16:26 | PC.ADMIT ---
Patient was admitted from the ED POD on a CV for tx of Unspecified Depressive Disorder. Patient self presented to our ED with reports of worsening depression and stomach pain. Upon admission, pt is A&Ox3, with limited eye contact and periods of thought blocking during admission assessment. She is difficult to understand at times d/t mumbling of her words and is frequently yawning throughout interaction. When asked what brought her here, pt stated I'm very depressed. I need someone to talk to, I just have too much going on in my head . When pt was asked to elaborate recent stressors/causes of the depression, pt replied Um, I don't know. Work and my family situation. Theres a lot going on in my head and I don't have the support . Patient inconsistent with answering when asked about hx of SI. Initially stated Uh, no not really , but shortly after she changed her answer and reported a hx of attempts with pills and stuff . She currently endorses passive SI with no plan/intent, states sometimes I just want to give up . Denies HI/AVH, c/o poor sleep at night and minimal appetite but i try to force myself to eat, I don't want to lose weight . Pt reports occasional alcohol and marijuana use, denieis any other substances. Tox was unable to be obtain in ED as pt told staff she was not able to urinate. (Per crisis eval, pt has a hx of daily substance use), told the Provider she has not used cocaine in over a year. Denies any hx of trauma, states she has been compliant with her medications prior to coming here but is unsure of who has been prescribing them for her, as she is only aware of who she sees for a therapist. States her goal for admission is To have someone to talk to . Skin check unremarkable, flu shot given and pt placed on 15 minute checks for safety.
[2025-01-21 16:59] LABS: Ammonia 29 umol/L (13-55)
[2025-01-21 17:01] LABS: Lithium < 0.10 mmol/L (0.60-1.20)
[2025-01-21 17:08] LABS: Alanine Aminotransferase 25 U/L (0-31); Albumin Level 5.3 g/dL (3.5-5.0); Alkaline Phosphatase 64 U/L (39-117); Aspartate Amino Transferase 20 U/L (5-31); Blood Urea Nitrogen 19 mg/dL (9-16); Creatinine Clr Calc Pharmacy 111.9; Estimated Glomerular Filt Rate > 60; Total Protein 8.0 g/dL (6.5-8.0)
--- NOTE | 2025-01-21 17:20 | PC.NURSE ---
Pt informed this nurse at 17:15 that she needed to reach out to her seismology technical officer Patric , to inform him she was here, inpatient. TW attempted to call the [facility] on behalf of Joyce, with no answer. Will pass along to the following shift to attempt again tomorrow morning.
[2025-01-21 19:50] VITALS: BP 117/59; PULSE 70; RESP 16; TEMP 36.2; O2SAT 99
[2025-01-22 08:00] VITALS: BP 104/59; PULSE 78; RESP 16; TEMP 36.6; O2SAT 99
[2025-01-22 09:00] LABS: Alanine Aminotransferase 23 U/L (0-31); Albumin Level 4.9 g/dL (3.5-5.0); Alkaline Phosphatase 58 U/L (39-117); Anion Gap 12 (12-20); Aspartate Amino Transferase 18 U/L (5-31); Blood Urea Nitrogen 15 mg/dL (9-16); Calcium 9.6 mg/dL (8.4-10.2); Carbon Dioxide 25 mmol/L (22-29); Chloride 106 mmol/L (96-108); Cholesterol 109 mg/dL (<200); Creatinine Clr Calc Pharmacy 110.5; Estimated Glomerular Filt Rate > 60; HDL Cholesterol 34 mg/dL (>40); Potassium 4.3 mmol/L (3.3-5.1); Sodium 139 mmol/L (135-145); Total Protein 7.7 g/dL (6.5-8.0); Triglycerides 78 mg/dL (<150)
[2025-01-22 09:05] LABS: UPreg QC Valid YES
[2025-01-22 09:33] LABS: Cannabinoid Screen Urine POSITIVE (Not Detect)
--- NOTE | 2025-01-22 10:06 | P.PNPSI_ITS ---
Subjective Subjective Date of Service: 01/22/25 Reason For Visit: crisis Subjective Notes: Conditional Voluntary Interim History: Keeping to self. laying in bed most of shift. Patient continue to report feeling depressed today; T/W discussed pts [place] level being <0.10 and Valproic acid level being <12.5. Pt stated, I haven't been taking my medications everyday. I've been forgetting a lot ; educated regarding importance of medication compliance. She has been medication compliant while on the unit. denies SI/HI/VH/AH. Encouraged to attend groups, which she reports she will try to attend tomorrow. Continue tx plan. Medication Compliance: Yes Side effects from medications: No Attending Groups: No Mental Status Exam Mental Status Exam Patient Appearance: Appropriate Patient Orientation: Person, Place, Time and Situation Level of Consciousness: Awake Patient Behavior: Appropriate, Cooperative and Good Eye Contact Mood Description: Depressed Affect Description: Depressed Ability to Follow Directions: Good Speech Pattern: Clear and Soft-Spoken Memory Description: Intact Hallucinations: None Delusions: Not Present Thought Process: Slowed Thinking Thought Content: positive for Intact Diagnostics Vital Signs (24Hr): Vital Signs - 24 hr 01/21/25 13:07 01/21/25 19:50 01/22/25 08:00 Temperature 96.4 F L 97.2 F 97.9 F Pulse Rate 85 70 78 Respiratory Rate 16 16 16 Blood Pressure 119/79 117/59 L 104/59 L Pulse Oximetry 99 99 99 Oxygen Delivery Method Room Air Room Air Room Air BMI result Body Mass Index 27.3 Labs 01/22/25 08:20 01/22/25 08:33 Labs: Laboratory Results - last 48 hr 01/21/25 01/21/25 01/21/25 12:06 12:09 16:48 Hold Purple Top SEE NOTE Sodium Potassium Chloride Carbon Dioxide Anion Gap BUN 19 H Creatinine 0.79 Estim Creat Clear Calc 111.9 Estimated GFR > 60 Random Glucose Estimat Average Glucose Hemoglobin A1c % Calcium Total Bilirubin 0.4 Direct Bilirubin 0.2 AST 20 ALT 25 Alkaline Phosphatase 64 Ammonia 29 Total Protein 8.0 Albumin 5.3 H Triglycerides Cholesterol LDL Cholesterol, Calc HDL Cholesterol Urine Color Yellow Urine Appearance Cloudy Urine pH 6.5 Ur Specific [place] >= 1.030 H Urine Protein Trace Urine Glucose (UA) Negative Urine Ketones Trace Urine Blood Negative Urine Nitrite Negative Ur Leukocyte Esterase Negative Urine Test NEGATIVE Urine Opiates Screen Not Detected Ur Buprenorphine Scrn TNP Ur Oxycodone Screen TNP Urine Methadone Screen Not Detected Urine Fentanyl Screen Not Detected Ur Barbiturates Screen Not Detected Valproic Acid < 12.5 L Ur Phencyclidine Scrn Not Detected Ur Amphetamines Screen Not Detected U Benzodiazepines Scrn Not Detected [place] < 0.10 L Urine Cocaine Screen Not Detected U Marijuana (THC) Screen POSITIVE H 01/22/25 01/22/25 08:20 08:33 Hold Purple Top Sodium 139 Potassium 4.3 D Chloride 106 Carbon Dioxide 25 Anion Gap 12 BUN 15 Creatinine 0.80 Estim Creat Clear Calc 110.5 Estimated GFR > 60 Random Glucose 117 H Estimat Average Glucose 108 Hemoglobin A1c % 5.4 Calcium 9.6 Total Bilirubin 0.5 Direct Bilirubin AST 18 ALT 23 Alkaline Phosphatase 58 Ammonia Total Protein 7.7 Albumin 4.9 Triglycerides 78 Cholesterol 109 LDL Cholesterol, Calc 60 HDL Cholesterol 34 L Urine Color Urine Appearance Urine pH Ur Specific [place] Urine Protein Urine Glucose (UA) Urine Ketones Urine Blood Urine Nitrite Ur Leukocyte Esterase Urine Test Urine Opiates Screen Ur Buprenorphine Scrn Ur Oxycodone Screen Urine Methadone Screen Urine Fentanyl Screen Ur Barbiturates Screen Valproic Acid Ur Phencyclidine Scrn Ur Amphetamines Screen U Benzodiazepines Scrn [place] Urine Cocaine Screen U Marijuana (THC) Screen Medications Medications Current Medications Acetaminophen (Acetaminophen 325 Mg Tablet) 650 mg PO Q6H PRN PRN Reason: Headache/Pain, Scale 1-10 Last Admin: 01/21/25 16:19 Dose: 650 mg Al Hydroxide/Mg Hydroxide (Magnesium Hydrox/Alum Hydrox 30 Ml Oral.Susp) 30 ml PO Q6H PRN PRN Reason: Heartburn/Nausea Divalproex Sodium (Divalproex Sodium Er 500 Mg Tab.Er.24h) 1,500 mg PO BEDTIME [facility] Last Admin: 01/21/25 20:13 Dose: 1,500 mg Hydroxyzine HCl (Hydroxyzine Hcl 25 Mg Tablet) 25 mg PO Q6H PRN PRN Reason: mild anxiety [place] Carbonate ([place] Carbonate Er 300 Mg Tablet.Er) 600 mg PO BEDTIME [facility] Last Admin: 01/21/25 20:12 Dose: 600 mg [place] Carbonate ([place] Carbonate Er 450 Mg Tablet.Er) 450 mg PO DAILY [facility] Last Admin: 01/22/25 08:42 Dose: 450 mg Magnesium Hydroxide (Milk Of Magnesia 30 Ml Oral.Susp) 30 ml PO DAILY PRN PRN Reason: Constipation Nicotine (Nicotine 21 Mg Patch.Td24) 21 mg TRANSDERMA DAILY DEB Last Admin: 01/22/25 08:53 Dose: Not Given Nicotine Polacrilex (Nicotine Polacrilex 2 Mg Gum) 4 mg BUCCAL Q2H PRN PRN Reason: Nicotine Cravings Olanzapine (Olanzapine 10 Mg Tablet) 20 mg PO BEDTIME DEB Last Admin: 01/21/25 20:12 Dose: 20 mg Trazodone HCl (Trazodone Hcl 50 Mg Tablet) 50 mg PO BEDTIME MRX1 PRN PRN Reason: Insomnia Last Admin: 01/21/25 20:19 Dose: 50 mg Allergies Allergies Allergy/AdvReac Type Severity Reaction Status Date / Time haldol AdvReac Intermediate dystonia Uncoded 01/19/25 18:41 Assessment & Plan Assessment & Plan (1) Bipolar 1 disorder, manic, moderate: Status: Acute Code(s): F31.12 - Bipolar disorder, current episode manic without psychotic features, moderate (2) Cannabis use disorder: Status: Acute Code(s): F12.90 - Cannabis use, unspecified, uncomplicated Plan Patient is a 24-year-old female with history of bipolar disorder, cocaine use disorder and cannabis use disorder who self presented to ER due to increased depression secondary to life stressors. Plan: CV 15 minute safety checks Obtain collateral Encourage groups Continue home medications Obtain labs Referral to outpatient prescriber Discharge planning 01/22:Keeping to self. laying in bed most of shift. Patient continue to report feeling depressed today; T/W discussed pts [place] level being <0.10 and Valproic acid level being <12.5. Pt stated, I haven't been taking my medications everyday. I've been forgetting a lot ; educated regarding importance of medication compliance. She has been medication compliant while on the unit. denies SI/HI/VH/AH. Encouraged to attend groups, which she reports she will try to attend tomorrow. Continue tx plan. Patient educated on: diagnosis, medication risk/benefits and therapeutic strategies Reason for continued inpatient stay Substantial Risk for: med/psych decompensation Time Spent With Patient Time: Total time managing care of this patient today _20___ minutes.
--- NOTE | 2025-01-22 13:08 | HO.PM.IMCN ---
History of Present Illness Data of Consult Service Date: 01/22/25 Primary Care Provider: Edwina Rogers MD HPI Reason for consult: Medical consult 24-year-old female with a past medical history of bipolar 1 disorder, cannabis use cocaine in house and instability presented to the ED from her workplace reporting increased depression. Patient has a history of bipolar disorder and medication non adherence is suspected. Her WBC was elevated to 15.5 with no anemia. No electrolyte imbalances, no evidence of liver or renal impairment. Random glucose slightly elevated. Hemoglobin A1c 5.4, lipid panel within normal limits. On exam she has reports of chronic abdominal pain. He has had negative workup in the past, recommend following up with GI when patient is discharged. Review of Systems Review of Systems: Denies any shortness of breath, chest pain, palpitations, dizziness, lightheadedness, headaches, dysuria, abdominal pain or discomfort, nausea, vomiting or diarrhea. Denies chills, body aches, muscle aches, fatigue or weight loss. [facility] Medical History Drug overdose Cocaine use disorder Bipolar 1 disorder, mixed, severe No known health problems Social History Household Members: Friend(s) Housing: Homeless Do you presently have visiting nurse or other home services: No Alcohol intake: current Alcohol intake frequency: a few times a week Alcohol type: beer Patient Tobacco Use Status: Never used Tobacco Smoked in Last 30 Days: No e-Cigarette/Vaping Use: Former Use Patient Interested in Nicotine Replacement: Yes Patient Given Instructions on How to Stop Smoking: Yes Date Education Initiated: 01/21/25 Second Hand Smoke Exposure: No Substance Use Type: Crack/Cocaine Currently Displaying Signs/Symptoms of Drug Intoxication Withdrawal: No Have you been hit, kicked, punched, or otherwise hurt by someone within the past year? If so, by whom?: No Do you feel safe in your current relationship?: No Current Relationship Is there a partner from a previous relationship who is making you feel unsafe now?: No Are you made to feel afraid or neglected: No Spiritual Healthcare Practices: None Mu-Ism Healthcare Practices: None Cultural Healthcare Practices: None Advance Directives: No Advance Directives Information Provided: No Do you have thoughts of harming others: None Do you have a plan to hurt others: No Plan Recently lost weight without trying: No How much weight loss: Not applicable Eating poorly because of decreased appetite: Yes Nutrition screen score: 1 Nutrition Risks: No Nutritional Risk Patient : No : No Poor oral hygiene: No service: No Sexual orientation: Straight/Heterosexual Meds Allergies Allergy/AdvReac Type Severity Reaction Status Date / Time haldol AdvReac Intermediate dystonia Uncoded 01/19/25 18:41 Active Medications: Current Medications Acetaminophen (Acetaminophen 325 Mg Tablet) 650 mg PO Q6H PRN PRN Reason: Headache/Pain, Scale 1-10 Last Admin: 01/21/25 16:19 Dose: 650 mg Al Hydroxide/Mg Hydroxide (Magnesium Hydrox/Alum Hydrox 30 Ml Oral.Susp) 30 ml PO Q6H PRN PRN Reason: Heartburn/Nausea Divalproex Sodium (Divalproex Sodium Er 500 Mg Tab.Er.24h) 1,500 mg PO BEDTIME DEB Last Admin: 01/21/25 20:13 Dose: 1,500 mg Hydroxyzine HCl (Hydroxyzine Hcl 25 Mg Tablet) 25 mg PO Q6H PRN PRN Reason: mild anxiety [place] Carbonate ([place] Carbonate Er 300 Mg Tablet.Er) 600 mg PO BEDTIME DEB Last Admin: 01/21/25 20:12 Dose: 600 mg [place] Carbonate ([place] Carbonate Er 450 Mg Tablet.Er) 450 mg PO DAILY DEB Last Admin: 01/22/25 08:42 Dose: 450 mg Magnesium Hydroxide (Milk Of Magnesia 30 Ml Oral.Susp) 30 ml PO DAILY PRN PRN Reason: Constipation Nicotine (Nicotine 21 Mg Patch.Td24) 21 mg TRANSDERMA DAILY DEB Last Admin: 01/22/25 08:53 Dose: Not Given Nicotine Polacrilex (Nicotine Polacrilex 2 Mg Gum) 4 mg BUCCAL Q2H PRN PRN Reason: Nicotine Cravings Olanzapine (Olanzapine 10 Mg Tablet) 20 mg PO BEDTIME DEB Last Admin: 01/21/25 20:12 Dose: 20 mg Trazodone HCl (Trazodone Hcl 50 Mg Tablet) 50 mg PO BEDTIME MRX1 PRN PRN Reason: Insomnia Last Admin: 01/21/25 20:19 Dose: 50 mg Home Medications ?Medication ?Instructions ?Recorded ?Confirmed ?Last Taken ?Type No Known Home Meds 01/21/25 01/21/25 Unknown History Physical Exam Vital Signs and Narrative: Vital Signs: Last Vital Signs Temp 97.9 F 01/22/25 08:00 Pulse 78 01/22/25 08:00 Resp 16 01/22/25 08:00 BP 104/59 L 01/22/25 08:00 Pulse Ox 99 01/22/25 08:00 O2 Del Method Room Air 01/22/25 08:00 BMI result Body Mass Index 27.3 Alert and oriented X3, calm and cooperative. Answers questions. Guarded. Neuro: CN II-X11 intact, no deficits, visual acuity intact EYES: PERRLA, EOM intact ENT: Hearing intact, MMM Cardiac: S1 S2 RRR, No ectopy Pulmonary: lungs clear to auscultation, No increased WOB. Abdominal: BS active in all 4 quadrants, no guarding or tenderness MSK: Strength 5/5 upper and lower extremities : Deferred Extremities: No edema in lower extremities Psych: Quiet and cooperative. Skin: Warm and dry, Intact Results Labs 01/19/25 20:46 01/22/25 08:33 Labs: Laboratory Results - last 24 hr 01/21/25 01/21/25 01/21/25 12:06 12:09 16:48 Hold Purple Top SEE NOTE Anion Gap Estim Creat Clear Calc 111.9 Estimated GFR > 60 Random Glucose Estimat Average Glucose Hemoglobin A1c % Calcium Total Bilirubin 0.4 Direct Bilirubin 0.2 AST 20 ALT 25 Alkaline Phosphatase 64 Ammonia 29 Total Protein 8.0 Albumin 5.3 H Triglycerides Cholesterol LDL Cholesterol, Calc HDL Cholesterol Urine Test NEGATIVE Urine Opiates Screen Not Detected Ur Buprenorphine Scrn TNP Ur Oxycodone Screen TNP Urine Methadone Screen Not Detected Urine Fentanyl Screen Not Detected Ur Barbiturates Screen Not Detected Valproic Acid < 12.5 L Ur Phencyclidine Scrn Not Detected Ur Amphetamines Screen Not Detected U Benzodiazepines Scrn Not Detected [place] < 0.10 L Urine Cocaine Screen Not Detected U Marijuana (THC) Screen POSITIVE H 01/22/25 01/22/25 08:20 08:33 Hold Purple Top Anion Gap 12 Estim Creat Clear Calc 110.5 Estimated GFR > 60 Random Glucose 117 H Estimat Average Glucose 108 Hemoglobin A1c % 5.4 Calcium 9.6 Total Bilirubin 0.5 Direct Bilirubin AST 18 ALT 23 Alkaline Phosphatase 58 Ammonia Total Protein 7.7 Albumin 4.9 Triglycerides 78 Cholesterol 109 LDL Cholesterol, Calc 60 HDL Cholesterol 34 L Urine Test Urine Opiates Screen Ur Buprenorphine Scrn Ur Oxycodone Screen Urine Methadone Screen Urine Fentanyl Screen Ur Barbiturates Screen Valproic Acid Ur Phencyclidine Scrn Ur Amphetamines Screen U Benzodiazepines Scrn [place] Urine Cocaine Screen U Marijuana (THC) Screen Assessment and Plan (1) Depression: Status: Acute Plan 24-year-old female with past medical history listed below presented to the ED with increased depression. She is admitted for inpatient stabilization. Bipolar 1 disorder/cannabis use/cocaine use/depression/housing instability Treatment per psychiatric team Thank you for allowing me to participate in the care of this patient. Will follow with you, please notify medical provider with any changes in condition or concerns.
[2025-01-22 13:22] LABS: MANUAL DIFF FLAG NO
[2025-01-22 13:26] LABS: Hematocrit 43.2 % (37.0-47.0); Hemoglobin 14.7 g/dl (12.0-16.0); Imm Gran Abs Auto 0.04 X10*3/uL (0.00-0.03); Imm Gran Pct Auto 0.4 % (0.0-0.4); Lymphocytes Absolute Auto 2.4 X10*3/uL (1.2-4.9); Mean Corpuscular HGB Conc 34.0 g/dl (31.0-35.0); Mean Corpuscular Hemoglobin 30.9 pg (27.0-33.0); Mean Corpuscular Volume 90.9 fL (80.0-98.0); NRBC Abs Auto 0.000 X10*3/uL (0.0-0.012); NRBC Pct Auto 0.0 /100WBC (0.0-0.2); Platelet Count 331 X10*3/uL (160-400); Red Blood Count 4.75 X10*6/uL (4.20-5.50); White Blood Count 10.4 X10*3/uL (4.8-10.8)
[2025-01-22 20:00] VITALS: BP 113/61; PULSE 73; RESP 16; TEMP 36.8; O2SAT 93
[2025-01-23 08:00] VITALS: BP 98/56; PULSE 68; RESP 16; TEMP 36.1; O2SAT 98
--- NOTE | 2025-01-23 12:12 | P.PNPSI_ITS ---
Subjective Subjective Date of Service: 01/23/25 Reason For Visit: crisis Subjective Notes: Conditional Voluntary Healthcare Proxy: No Guardianship: No Medical Problems Affecting Mental Status: No Interim History: Patient seen in her room, chart reviewed. Patient was cooperative with the encounter, initially presented constricted, then shifted towards a labile and more intense affect. 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 Patient denies suicidal ideation, homicidal, ideation, auditory, and visual hallucinations. Medication Compliance: Yes Side effects from medications: No Attending Groups: Yes Review of Systems Acute medical concerns: No Medical Review of Systems: unchanged Mental Status Exam Mental Status Exam Narrative: Patient Appearance: Well Groomed, adequate hygiene Patient Behavior: Appropriate Level of Consciousness: Awake, alert Patient Orientation: Person, Place and Time, situational context Memory: grossly intact to recent events Psychomotor: no agitation or slowing Speech: normal rate, tone, volume Mood: ?okay? Affect: appropriate range Thought Process: Goal Oriented Thought Content: denies SI/HI; focused on disposition Hallucinations: Denies; does not appear preoccupied Delusions: None evinced Insight: mild impairment Judgment: mild impairment Impulsivity: low Diagnostics Vital Signs (24Hr): Vital Signs - 24 hr 01/22/25 20:00 01/23/25 08:00 Temperature 98.2 F 97.0 F Pulse Rate 73 68 Respiratory Rate 16 16 Blood Pressure 113/61 98/56 L Pulse Oximetry 93 98 Oxygen Delivery Method Room Air Room Air BMI result Body Mass Index 27.3 Labs 01/22/25 08:20 01/22/25 08:33 Labs: Laboratory Results - last 48 hr 01/21/25 01/21/25 01/21/25 12:06 12:09 16:48 WBC RBC Hgb Hct MCV MCH MCHC RDW Plt Count MPV Immature Gran % (Auto) Neut % (Auto) Lymph % (Auto) [place] % (Auto) Eos % (Auto) Baso % (Auto) Lymph # (Auto) [place] # (Auto) Eos # (Auto) Baso # (Auto) Abs Immat Gran (auto) Absolute Neuts (auto) Absolute Nucleated RBC Nucleated RBC % (auto) Hold Purple Top SEE NOTE Sodium Potassium Chloride Carbon Dioxide Anion Gap BUN 19 H Creatinine 0.79 Estim Creat Clear Calc 111.9 Estimated GFR > 60 Random Glucose Estimat Average Glucose Hemoglobin A1c % Calcium Total Bilirubin 0.4 Direct Bilirubin 0.2 AST 20 ALT 25 Alkaline Phosphatase 64 Ammonia 29 Total Protein 8.0 Albumin 5.3 H Triglycerides Cholesterol LDL Cholesterol, Calc HDL Cholesterol Urine Color Yellow Urine Appearance Cloudy Urine pH 6.5 Ur Specific [place] >= 1.030 H Urine Protein Trace Urine Glucose (UA) Negative Urine Ketones Trace Urine Blood Negative Urine Nitrite Negative Ur Leukocyte Esterase Negative Urine Test NEGATIVE Urine Opiates Screen Not Detected Ur Buprenorphine Scrn TNP Ur Oxycodone Screen TNP Urine Methadone Screen Not Detected Urine Fentanyl Screen Not Detected Ur Barbiturates Screen Not Detected Valproic Acid < 12.5 L Ur Phencyclidine Scrn Not Detected Ur Amphetamines Screen Not Detected U Benzodiazepines Scrn Not Detected [place] < 0.10 L Urine Cocaine Screen Not Detected U Marijuana (THC) Screen POSITIVE H 01/22/25 01/22/25 08:20 08:33 WBC 10.4 RBC 4.75 Hgb 14.7 Hct 43.2 MCV 90.9 MCH 30.9 MCHC 34.0 RDW 12.7 Plt Count 331 MPV 10.9 Immature Gran % (Auto) 0.4 Neut % (Auto) 67.8 Lymph % (Auto) 22.9 [place] % (Auto) 6.8 Eos % (Auto) 1.6 Baso % (Auto) 0.5 Lymph # (Auto) 2.4 [place] # (Auto) 0.7 Eos # (Auto) 0.2 Baso # (Auto) 0.1 Abs Immat Gran (auto) 0.04 H Absolute Neuts (auto) 7.0 Absolute Nucleated RBC 0.000 Nucleated RBC % (auto) 0.0 Hold Purple Top Sodium 139 Potassium 4.3 D Chloride 106 Carbon Dioxide 25 Anion Gap 12 BUN 15 Creatinine 0.80 Estim Creat Clear Calc 110.5 Estimated GFR > 60 Random Glucose 117 H Estimat Average Glucose 108 Hemoglobin A1c % 5.4 Calcium 9.6 Total Bilirubin 0.5 Direct Bilirubin AST 18 ALT 23 Alkaline Phosphatase 58 Ammonia Total Protein 7.7 Albumin 4.9 Triglycerides 78 Cholesterol 109 LDL Cholesterol, Calc 60 HDL Cholesterol 34 L Urine Color Urine Appearance Urine pH Ur Specific [place] Urine Protein Urine Glucose (UA) Urine Ketones Urine Blood Urine Nitrite Ur Leukocyte Esterase Urine Test Urine Opiates Screen Ur Buprenorphine Scrn Ur Oxycodone Screen Urine Methadone Screen Urine Fentanyl Screen Ur Barbiturates Screen Valproic Acid Ur Phencyclidine Scrn Ur Amphetamines Screen U Benzodiazepines Scrn [place] Urine Cocaine Screen U Marijuana (THC) Screen Medications Medications Current Medications Acetaminophen (Acetaminophen 325 Mg Tablet) 650 mg PO Q6H PRN PRN Reason: Headache/Pain, Scale 1-10 Last Admin: 01/21/25 16:19 Dose: 650 mg Al Hydroxide/Mg Hydroxide (Magnesium Hydrox/Alum Hydrox 30 Ml Oral.Susp) 30 ml PO Q6H PRN PRN Reason: Heartburn/Nausea Divalproex Sodium (Divalproex Sodium Er 500 Mg Tab.Er.24h) 1,500 mg PO BEDTIME DEB Last Admin: 01/22/25 21:00 Dose: 1,500 mg Hydroxyzine HCl (Hydroxyzine Hcl 25 Mg Tablet) 25 mg PO Q6H PRN PRN Reason: mild anxiety [place] Carbonate ([place] Carbonate Er 300 Mg Tablet.Er) 600 mg PO BEDTIME DEB Last Admin: 01/22/25 21:00 Dose: 600 mg [place] Carbonate ([place] Carbonate Er 450 Mg Tablet.Er) 450 mg PO DAILY DEB Last Admin: 01/23/25 09:00 Dose: 450 mg Magnesium Hydroxide (Milk Of Magnesia 30 Ml Oral.Susp) 30 ml PO DAILY PRN PRN Reason: Constipation Nicotine (Nicotine 21 Mg Patch.Td24) 21 mg TRANSDERMA DAILY PRN PRN Reason: smoking cessation Nicotine Polacrilex (Nicotine Polacrilex 2 Mg Gum) 4 mg BUCCAL Q2H PRN PRN Reason: Nicotine Cravings Olanzapine (Olanzapine 10 Mg Tablet) 20 mg PO BEDTIME DEB Last Admin: 01/22/25 21:00 Dose: 20 mg Olanzapine (Olanzapine 5 Mg Tablet) 5 mg PO Q4H PRN PRN Reason: agitation Trazodone HCl (Trazodone Hcl 50 Mg Tablet) 50 mg PO BEDTIME MRX1 PRN PRN Reason: Insomnia Last Admin: 01/22/25 21:00 Dose: 50 mg Allergies Allergies Allergy/AdvReac Type Severity Reaction Status Date / Time haldol AdvReac Intermediate dystonia Uncoded 01/19/25 18:41 Assessment & Plan Assessment & Plan (1) Bipolar 1 disorder, manic, moderate: Status: Acute Code(s): F31.12 - Bipolar disorder, current episode manic without psychotic features, moderate (2) Cannabis use disorder: Status: Acute Code(s): F12.90 - Cannabis use, unspecified, uncomplicated Plan Patient is a 24-year-old female with history of bipolar disorder, cocaine use disorder and cannabis use disorder who self presented to ER due to increased depression secondary to life stressors. Plan: CV 15 minute safety checks Obtain collateral Encourage groups Continue home medications Obtain labs Referral to outpatient prescriber Discharge planning 01/22:Keeping to self. laying in bed most of shift. Patient continue to report feeling depressed today; T/W discussed pts [place] level being <0.10 and Valproic acid level being <12.5. Pt stated, I haven't been taking my medications everyday. I've been forgetting a lot ; educated regarding importance of medication compliance. She has been medication compliant while on the unit. denies SI/HI/VH/AH. Encouraged to attend groups, which she reports she will try to attend tomorrow. Continue tx plan. 01/23: no changes today Patient educated on: diagnosis and medication risk/benefits Informed Consent: understands Reason for continued inpatient stay Substantial Risk for: rapid decompensation Time Spent With Patient Time: Total time managing care of this patient today __15__ minutes.
[2025-01-23 20:00] VITALS: BP 108/50; PULSE 74; RESP 14; TEMP 37.9; O2SAT 100
[2025-01-24 07:54] VITALS: RESP 14; TEMP 36.8
--- NOTE | 2025-01-24 11:23 | HO.PSYCHPN ---
Subjective Subjective Date of Service: 01/24/25 Reason For Visit: crisis Subjective Notes: Conditional Voluntary Healthcare Proxy: No Guardianship: No Medical Problems Affecting Mental Status: No Interim History: She asked about her medications. These were reviewed with her. She is focused on anger, everything she is going through in life. She states that she has a court date tomorrow, she wants to make sure she doesn't in trouble for missing the hearing because she is in the hospital. Medication Compliance: Yes Side effects from medications: No Attending Groups: Intermittent Review of Systems Acute medical concerns: No Medical Review of Systems: unchanged Review of Systems Review of Systems Yes all other systems are reviewed and are negative Mental Status Exam Mental Status Exam Narrative: Patient Appearance: Well Groomed, adequate hygiene Patient Behavior: Appropriate Level of Consciousness: Awake, alert Patient Orientation: Person, Place and Time, situational context Memory: grossly intact to recent events Psychomotor: no agitation or slowing Speech: normal rate, tone, volume Mood: ?okay? Affect: appropriate range Thought Process: Goal Oriented Thought Content: denies SI/HI; focused on difficulty with focus Hallucinations: Denies; does not appear preoccupied Delusions: None evinced Insight: mild impairment Judgment: mild impairment Impulsivity: low Diagnostics Vital Signs (24Hr): Vital Signs - 24 hr 01/23/25 20:00 01/24/25 07:54 Temperature 100.2 F 98.2 F Pulse Rate 74 Respiratory Rate 14 14 Blood Pressure 108/50 L Pulse Oximetry 100 Oxygen Delivery Method Room Air BMI result Body Mass Index 27.3 Labs 01/22/25 08:20 01/22/25 08:33 Labs: Laboratory Results - last 48 hr 01/22/25 08:20 WBC 10.4 RBC 4.75 Hgb 14.7 Hct 43.2 MCV 90.9 MCH 30.9 MCHC 34.0 RDW 12.7 Plt Count 331 MPV 10.9 Immature Gran % (Auto) 0.4 Neut % (Auto) 67.8 Lymph % (Auto) 22.9 [place] % (Auto) 6.8 Eos % (Auto) 1.6 Baso % (Auto) 0.5 Lymph # (Auto) 2.4 [place] # (Auto) 0.7 Eos # (Auto) 0.2 Baso # (Auto) 0.1 Abs Immat Gran (auto) 0.04 H Absolute Neuts (auto) 7.0 Absolute Nucleated RBC 0.000 Nucleated RBC % (auto) 0.0 Medications Medications Current Medications Acetaminophen (Acetaminophen 325 Mg Tablet) 650 mg PO Q6H PRN PRN Reason: Headache/Pain, Scale 1-10 Last Admin: 01/24/25 09:59 Dose: 650 mg Al Hydroxide/Mg Hydroxide (Magnesium Hydrox/Alum Hydrox 30 Ml Oral.Susp) 30 ml PO Q6H PRN PRN Reason: Heartburn/Nausea Divalproex Sodium (Divalproex Sodium Er 500 Mg Tab.Er.24h) 1,500 mg PO BEDTIME [facility] Last Admin: 01/23/25 20:28 Dose: 1,500 mg Hydroxyzine HCl (Hydroxyzine Hcl 25 Mg Tablet) 25 mg PO Q6H PRN PRN Reason: mild anxiety [place] Carbonate ([place] Carbonate Er 300 Mg Tablet.Er) 600 mg PO BEDTIME [facility] Last Admin: 01/23/25 20:28 Dose: 600 mg [place] Carbonate ([place] Carbonate Er 450 Mg Tablet.Er) 450 mg PO DAILY [facility] Last Admin: 01/24/25 08:22 Dose: 450 mg Magnesium Hydroxide (Milk Of Magnesia 30 Ml Oral.Susp) 30 ml PO DAILY PRN PRN Reason: Constipation Nicotine (Nicotine 21 Mg Patch.Td24) 21 mg TRANSDERMA DAILY PRN PRN Reason: smoking cessation Nicotine Polacrilex (Nicotine Polacrilex 2 Mg Gum) 4 mg BUCCAL Q2H PRN PRN Reason: Nicotine Cravings Olanzapine (Olanzapine 10 Mg Tablet) 20 mg PO BEDTIME [facility] Last Admin: 01/23/25 20:28 Dose: 20 mg Olanzapine (Olanzapine 5 Mg Tablet) 5 mg PO Q4H PRN PRN Reason: agitation Trazodone HCl (Trazodone Hcl 50 Mg Tablet) 50 mg PO BEDTIME MRX1 PRN PRN Reason: Insomnia Last Admin: 01/23/25 20:28 Dose: 50 mg Allergies Allergies Allergy/AdvReac Type Severity Reaction Status Date / Time haldol AdvReac Intermediate dystonia Uncoded 01/19/25 18:41 Assessment & Plan Assessment & Plan (1) Bipolar 1 disorder, manic, moderate: Status: Acute Code(s): F31.12 - Bipolar disorder, current episode manic without psychotic features, moderate (2) Cannabis use disorder: Status: Acute Code(s): F12.90 - Cannabis use, unspecified, uncomplicated Plan Patient is a 24-year-old female with history of bipolar disorder, cocaine use disorder and cannabis use disorder who self presented to ER due to increased depression secondary to life stressors. Plan: CV 15 minute safety checks Obtain collateral Encourage groups Continue home medications Obtain labs Referral to outpatient prescriber Discharge planning 01/22:Keeping to self. laying in bed most of shift. Patient continue to report feeling depressed today; T/W discussed pts [place] level being <0.10 and Valproic acid level being <12.5. Pt stated, I haven't been taking my medications everyday. I've been forgetting a lot ; educated regarding importance of medication compliance. She has been medication compliant while on the unit. denies SI/HI/VH/AH. Encouraged to attend groups, which she reports she will try to attend tomorrow. Continue tx plan. 01/23: no changes today 01/24: patient reports she has court date tomorrow, would like primary team to let the court know she is in the hospital. Will check VPA level tomorrow morning Patient educated on: diagnosis and medication risk/benefits Informed Consent: understands Reason for continued inpatient stay Substantial Risk for: rapid decompensation Time Spent With Patient Time: Total time managing care of this patient today __15__ minutes.
[2025-01-24 19:42] VITALS: BP 120/65; PULSE 80; RESP 16; TEMP 36.7; O2SAT 100
[2025-01-25 08:00] VITALS: BP 99/49; PULSE 71; RESP 15; TEMP 36.7; O2SAT 95
--- NOTE | 2025-01-25 14:26 | HO.PSYCHPN ---
Subjective Subjective Date of Service: 01/25/25 Reason For Visit: crisis Subjective Notes: Conditional Voluntary Interim History: Patient reports feeling stressed about stuff but better than admission; denies SI/HI/VH/AH. Valproic acid level 82.2; [place] level to be drawn tomorrow morning; pt aware. Future oriented. Pt reports she plans on returning to work when discharged; planning for discharge this week if continues to improve. Continue tx plan. Medication Compliance: Yes Side effects from medications: No Attending Groups: Intermittent Mental Status Exam Mental Status Exam Narrative: Pt is alert and oriented; behavior is cooperative and calm; dressed in casual attire; mood is described as stressed ; eye contact appropriate; Speech is normal rate, volume and not pressured; thought process is organized; Thought content is on tx/discharge; denies SI/HI/VH/AH. Diagnostics Vital Signs (24Hr): Vital Signs - 24 hr 01/24/25 19:42 01/25/25 08:00 Temperature 98.1 F 98.1 F Pulse Rate 80 71 Respiratory Rate 16 15 Blood Pressure 120/65 99/49 L Pulse Oximetry 100 95 Oxygen Delivery Method Room Air Room Air BMI result Body Mass Index 27.3 Labs 01/22/25 08:20 01/22/25 08:33 Labs: Laboratory Results - last 48 hr 01/25/25 07:54 Valproic Acid 82.2 Medications Medications Current Medications Acetaminophen (Acetaminophen 325 Mg Tablet) 650 mg PO Q6H PRN PRN Reason: Headache/Pain, Scale 1-10 Last Admin: 01/24/25 19:44 Dose: 650 mg Al Hydroxide/Mg Hydroxide (Magnesium Hydrox/Alum Hydrox 30 Ml Oral.Susp) 30 ml PO Q6H PRN PRN Reason: Heartburn/Nausea Dicyclomine HCl (Dicyclomine Hcl 10 Mg Capsule) 10 mg PO QIDACHS PRN PRN Reason: abdominal pain Last Admin: 01/24/25 22:08 Dose: 10 mg Divalproex Sodium (Divalproex Sodium Er 500 Mg Tab.Er.24h) 1,500 mg PO BEDTIME [facility] Last Admin: 01/24/25 21:40 Dose: 1,500 mg Hydroxyzine HCl (Hydroxyzine Hcl 25 Mg Tablet) 25 mg PO Q6H PRN PRN Reason: mild anxiety Last Admin: 01/25/25 10:55 Dose: 25 mg [place] Carbonate ([place] Carbonate Er 300 Mg Tablet.Er) 600 mg PO BEDTIME [facility] Last Admin: 01/24/25 21:40 Dose: 600 mg [place] Carbonate ([place] Carbonate Er 450 Mg Tablet.Er) 450 mg PO DAILY [facility] Last Admin: 01/25/25 08:07 Dose: 450 mg Magnesium Hydroxide (Milk Of Magnesia 30 Ml Oral.Susp) 30 ml PO DAILY PRN PRN Reason: Constipation Nicotine (Nicotine 21 Mg Patch.Td24) 21 mg TRANSDERMA DAILY PRN PRN Reason: smoking cessation Nicotine Polacrilex (Nicotine Polacrilex 2 Mg Gum) 4 mg BUCCAL Q2H PRN PRN Reason: Nicotine Cravings Olanzapine (Olanzapine 10 Mg Tablet) 20 mg PO BEDTIME [facility] Last Admin: 01/24/25 21:41 Dose: 20 mg Olanzapine (Olanzapine 5 Mg Tablet) 5 mg PO Q4H PRN PRN Reason: agitation Trazodone HCl (Trazodone Hcl 50 Mg Tablet) 50 mg PO BEDTIME MRX1 PRN PRN Reason: Insomnia Last Admin: 01/24/25 21:41 Dose: 50 mg Allergies Allergies Allergy/AdvReac Type Severity Reaction Status Date / Time haldol AdvReac Intermediate dystonia Uncoded 01/19/25 18:41 Assessment & Plan Assessment & Plan (1) Bipolar 1 disorder, manic, moderate: Status: Acute Code(s): F31.12 - Bipolar disorder, current episode manic without psychotic features, moderate (2) Cannabis use disorder: Status: Acute Code(s): F12.90 - Cannabis use, unspecified, uncomplicated Plan Patient is a 24-year-old female with history of bipolar disorder, cocaine use disorder and cannabis use disorder who self presented to ER due to increased depression secondary to life stressors. Plan: CV 15 minute safety checks Obtain collateral Encourage groups Continue home medications Obtain labs Referral to outpatient prescriber Discharge planning 01/22:Keeping to self. laying in bed most of shift. Patient continue to report feeling depressed today; T/W discussed pts [place] level being <0.10 and Valproic acid level being <12.5. Pt stated, I haven't been taking my medications everyday. I've been forgetting a lot ; educated regarding importance of medication compliance. She has been medication compliant while on the unit. denies SI/HI/VH/AH. Encouraged to attend groups, which she reports she will try to attend tomorrow. Continue tx plan. 01/23: no changes today 01/24: patient reports she has court date tomorrow, would like primary team to let the court know she is in the hospital. Will check VPA level tomorrow morning 01/25: Patient reports feeling stressed about stuff but better than admission; denies SI/HI/VH/AH. Valproic acid level 82.2; [place] level to be drawn tomorrow morning; pt aware. Future oriented. Pt reports she plans on returning to work when discharged; planning for discharge this week if continues to improve. Continue tx plan. Patient educated on: diagnosis, medication risk/benefits and therapeutic strategies Reason for continued inpatient stay Substantial Risk for: med/psych decompensation Time Spent With Patient Time: Total time managing care of this patient today _20___ minutes.
[2025-01-25 19:42] VITALS: BP 117/77; PULSE 90; RESP 18; TEMP 36.3; O2SAT 97
[2025-01-26 08:00] VITALS: PULSE 61; RESP 14; TEMP 38.9; O2SAT 97
[2025-01-26 08:37] LABS: Lithium 0.72 mmol/L (0.60-1.20)
[2025-01-26 08:51] LABS: Anion Gap 9 (12-20); Blood Urea Nitrogen 15 mg/dL (9-16); Carbon Dioxide 24 mmol/L (22-29); Chloride 109 mmol/L (96-108); Creatinine Clr Calc Pharmacy 119.4; Estimated Glomerular Filt Rate > 60; Potassium 4.2 mmol/L (3.3-5.1); Sodium 138 mmol/L (135-145)
--- NOTE | 2025-01-26 08:52 | P.PNPSI_ITS ---
Subjective Subjective Date of Service: 01/26/25 Reason For Visit: crisis Subjective Notes: Conditional Voluntary Interim History: Patient reports feeling okay today;focused on things she needs to do when discharged related to work and being on probation. denies SI/HI/VH/AH. [place] level 0.72 on 01/26/25; pt aware. She reports sleeping well. denies SI/HI/VH/AH. Encouraged to go to groups. Plan to discharge ; pt aware. continue tx plan. Medication Compliance: Yes Side effects from medications: No Attending Groups: No Mental Status Exam Mental Status Exam Narrative: Pt is alert and oriented; behavior is cooperative and calm; dressed in casual attire; mood is described as okay ; eye contact appropriate; Speech is normal rate, volume and not pressured; thought process is organized; Thought content is on discharge; denies SI/HI/VH/AH. Diagnostics Vital Signs (24Hr): Vital Signs - 24 hr 01/25/25 19:42 01/26/25 08:00 Temperature 97.3 F 102.0 F H Pulse Rate 90 61 Respiratory Rate 18 14 Blood Pressure 117/77 Pulse Oximetry 97 97 Oxygen Delivery Method Room Air Room Air BMI result Body Mass Index 27.3 Labs 01/22/25 08:20 01/26/25 08:15 Labs: Laboratory Results - last 48 hr 01/25/25 01/26/25 07:54 08:15 Sodium 138 Potassium 4.2 Chloride 109 H Carbon Dioxide 24 Anion Gap 9 L BUN 15 Creatinine 0.74 Estim Creat Clear Calc 119.4 Estimated GFR > 60 Valproic Acid 82.2 [place] 0.72 Medications Medications Current Medications Acetaminophen (Acetaminophen 325 Mg Tablet) 650 mg PO Q6H PRN PRN Reason: Headache/Pain, Scale 1-10 Last Admin: 01/25/25 21:27 Dose: 650 mg Al Hydroxide/Mg Hydroxide (Magnesium Hydrox/Alum Hydrox 30 Ml Oral.Susp) 30 ml PO Q6H PRN PRN Reason: Heartburn/Nausea Dicyclomine HCl (Dicyclomine Hcl 10 Mg Capsule) 10 mg PO QIDACHS PRN PRN Reason: abdominal pain Last Admin: 01/24/25 22:08 Dose: 10 mg Divalproex Sodium (Divalproex Sodium Er 500 Mg Tab.Er.24h) 1,500 mg PO BEDTIME [facility] Last Admin: 01/25/25 21:14 Dose: 1,500 mg Hydroxyzine HCl (Hydroxyzine Hcl 25 Mg Tablet) 25 mg PO Q6H PRN PRN Reason: mild anxiety Last Admin: 01/25/25 10:55 Dose: 25 mg [place] Carbonate ([place] Carbonate Er 300 Mg Tablet.Er) 600 mg PO BEDTIME [facility] Last Admin: 01/25/25 21:14 Dose: 600 mg [place] Carbonate ([place] Carbonate Er 450 Mg Tablet.Er) 450 mg PO DAILY [facility] Last Admin: 01/26/25 08:20 Dose: 450 mg Magnesium Hydroxide (Milk Of Magnesia 30 Ml Oral.Susp) 30 ml PO DAILY PRN PRN Reason: Constipation Nicotine (Nicotine 21 Mg Patch.Td24) 21 mg TRANSDERMA DAILY PRN PRN Reason: smoking cessation Nicotine Polacrilex (Nicotine Polacrilex 2 Mg Gum) 4 mg BUCCAL Q2H PRN PRN Reason: Nicotine Cravings Olanzapine (Olanzapine 10 Mg Tablet) 20 mg PO BEDTIME [facility] Last Admin: 01/25/25 21:14 Dose: 20 mg Olanzapine (Olanzapine 5 Mg Tablet) 5 mg PO Q4H PRN PRN Reason: agitation Trazodone HCl (Trazodone Hcl 50 Mg Tablet) 50 mg PO BEDTIME MRX1 PRN PRN Reason: Insomnia Last Admin: 01/25/25 21:14 Dose: 50 mg Allergies Allergies Allergy/AdvReac Type Severity Reaction Status Date / Time haldol AdvReac Intermediate dystonia Uncoded 01/19/25 18:41 Assessment & Plan Assessment & Plan (1) Bipolar 1 disorder, manic, moderate: Status: Acute Code(s): F31.12 - Bipolar disorder, current episode manic without psychotic features, moderate (2) Cannabis use disorder: Status: Acute Code(s): F12.90 - Cannabis use, unspecified, uncomplicated Plan Patient is a 24-year-old female with history of bipolar disorder, cocaine use disorder and cannabis use disorder who self presented to ER due to increased depression secondary to life stressors. Plan: CV 15 minute safety checks Obtain collateral Encourage groups Continue home medications Obtain labs Referral to outpatient prescriber Discharge planning 01/22:Keeping to self. laying in bed most of shift. Patient continue to report feeling depressed today; T/W discussed pts [place] level being <0.10 and Valproic acid level being <12.5. Pt stated, I haven't been taking my medications everyday. I've been forgetting a lot ; educated regarding importance of medication compliance. She has been medication compliant while on the unit. denies SI/HI/VH/AH. Encouraged to attend groups, which she reports she will try to attend tomorrow. Continue tx plan. 01/23: no changes today 01/24: patient reports she has court date tomorrow, would like primary team to let the court know she is in the hospital. Will check VPA level tomorrow morning 01/25: Patient reports feeling stressed about stuff but better than admission; denies SI/HI/VH/AH. Valproic acid level 82.2; [place] level to be drawn tomorrow morning; pt aware. Future oriented. Pt reports she plans on returning to work when discharged; planning for discharge this week if continues to improve. Continue tx plan. 01/26: Patient reports feeling okay today;focused on things she needs to do when discharged related to work and being on probation. denies SI/HI/VH/AH. [place] level 0.72 on 01/26/25; pt aware. She reports sleeping well. denies SI/HI/VH/AH. Encouraged to go to groups. Plan to discharge ; pt aware. continue tx plan. Patient educated on: diagnosis, medication risk/benefits and therapeutic strategies Reason for continued inpatient stay Substantial Risk for: med/psych decompensation Time Spent With Patient Time: Total time managing care of this patient today _20___ minutes.
[2025-01-26 20:00] VITALS: BP 117/60; PULSE 68; RESP 16; TEMP 36.9; O2SAT 100
[2025-01-27 07:51] VITALS: BP 114/77; PULSE 70; RESP 20; TEMP 36.6; O2SAT 98
--- NOTE | 2025-01-27 09:07 | HO.PSYCHPN ---
Subjective Subjective Date of Service: 01/27/25 Reason For Visit: crisis Subjective Notes: Conditional Voluntary Interim History: Listening to music in room. Patient reports feeling alright today; she reports being angry last night but is not clear as to reason. Pt stated, I felt angry last night. I don't know why. I was trying to take a shower but I couldn't because they wouldn't let me. Then I just didn't take my medications. I will tonight . denies SI/HI/VH/AH. Patient reports she plans on following up with outpatient providers. Medication Compliance: Yes Side effects from medications: No Attending Groups: Intermittent Mental Status Exam Mental Status Exam Narrative: Pt is alert and oriented; behavior is cooperative and calm; dressed in casual attire; mood is described as alright ; eye contact appropriate; Speech is normal rate, volume and not pressured; thought process is organized; Thought content is on discharge; denies SI/HI/VH/AH. Diagnostics Vital Signs (24Hr): Vital Signs - 24 hr 01/26/25 20:00 01/27/25 07:51 Temperature 98.5 F 98 F Pulse Rate 68 70 Respiratory Rate 16 20 Blood Pressure 117/60 114/77 Pulse Oximetry 100 98 Oxygen Delivery Method Room Air Room Air BMI result Body Mass Index 27.3 Labs 01/22/25 08:20 01/26/25 08:15 Labs: Laboratory Results - last 48 hr 01/26/25 08:15 Sodium 138 Potassium 4.2 Chloride 109 H Carbon Dioxide 24 Anion Gap 9 L BUN 15 Creatinine 0.74 Estim Creat Clear Calc 119.4 Estimated GFR > 60 TSH 1.27 [place] 0.72 Medications Medications Current Medications Acetaminophen (Acetaminophen 325 Mg Tablet) 650 mg PO Q6H PRN PRN Reason: Headache/Pain, Scale 1-10 Last Admin: 01/26/25 17:48 Dose: 650 mg Al Hydroxide/Mg Hydroxide (Magnesium Hydrox/Alum Hydrox 30 Ml Oral.Susp) 30 ml PO Q6H PRN PRN Reason: Heartburn/Nausea Dicyclomine HCl (Dicyclomine Hcl 10 Mg Capsule) 10 mg PO QIDACHS PRN PRN Reason: abdominal pain Last Admin: 01/24/25 22:08 Dose: 10 mg Divalproex Sodium (Divalproex Sodium Er 500 Mg Tab.Er.24h) 1,500 mg PO BEDTIME DEB Last Admin: 01/26/25 23:09 Dose: Not Given Hydroxyzine HCl (Hydroxyzine Hcl 25 Mg Tablet) 25 mg PO Q6H PRN PRN Reason: mild anxiety Last Admin: 01/25/25 10:55 Dose: 25 mg [place] Carbonate ([place] Carbonate Er 300 Mg Tablet.Er) 600 mg PO BEDTIME [facility]B Last Admin: 01/26/25 23:10 Dose: Not Given [place] Carbonate ([place] Carbonate Er 450 Mg Tablet.Er) 450 mg PO DAILY [facility] Last Admin: 01/27/25 08:23 Dose: 450 mg Magnesium Hydroxide (Milk Of Magnesia 30 Ml Oral.Susp) 30 ml PO DAILY PRN PRN Reason: Constipation Nicotine (Nicotine 21 Mg Patch.Td24) 21 mg TRANSDERMA DAILY PRN PRN Reason: smoking cessation Nicotine Polacrilex (Nicotine Polacrilex 2 Mg Gum) 4 mg BUCCAL Q2H PRN PRN Reason: Nicotine Cravings Olanzapine (Olanzapine 10 Mg Tablet) 20 mg PO BEDTIME [facility] Last Admin: 01/26/25 23:10 Dose: Not Given Olanzapine (Olanzapine 5 Mg Tablet) 5 mg PO Q4H PRN PRN Reason: agitation Trazodone HCl (Trazodone Hcl 50 Mg Tablet) 50 mg PO BEDTIME MRX1 PRN PRN Reason: Insomnia Last Admin: 01/25/25 21:14 Dose: 50 mg Allergies Allergies Allergy/AdvReac Type Severity Reaction Status Date / Time haldol AdvReac Intermediate dystonia Uncoded 01/19/25 18:41 Assessment & Plan Assessment & Plan (1) Bipolar 1 disorder, manic, moderate: Status: Acute Code(s): F31.12 - Bipolar disorder, current episode manic without psychotic features, moderate (2) Cannabis use disorder: Status: Acute Code(s): F12.90 - Cannabis use, unspecified, uncomplicated Plan Patient is a 24-year-old female with history of bipolar disorder, cocaine use disorder and cannabis use disorder who self presented to ER due to increased depression secondary to life stressors. Plan: CV 15 minute safety checks Obtain collateral Encourage groups Continue home medications Obtain labs Referral to outpatient prescriber Discharge planning 01/22:Keeping to self. laying in bed most of shift. Patient continue to report feeling depressed today; T/W discussed pts [place] level being <0.10 and Valproic acid level being <12.5. Pt stated, I haven't been taking my medications everyday. I've been forgetting a lot ; educated regarding importance of medication compliance. She has been medication compliant while on the unit. denies SI/HI/VH/AH. Encouraged to attend groups, which she reports she will try to attend tomorrow. Continue tx plan. 01/23: no changes today 01/24: patient reports she has court date tomorrow, would like primary team to let the court know she is in the hospital. Will check [place] level tomorrow morning 01/25: Patient reports feeling stressed about stuff but better than admission; denies SI/HI/VH/AH. Valproic acid level 82.2; [place] level to be drawn tomorrow morning; pt aware. Future oriented. Pt reports she plans on returning to work when discharged; planning for discharge this week if continues to improve. Continue tx plan. 01/26: Patient reports feeling okay today;focused on things she needs to do when discharged related to work and being on probation. denies SI/HI/VH/AH. [place] level 0.72 on 01/26/25; pt aware. She reports sleeping well. denies SI/HI/VH/AH. Encouraged to go to groups. Plan to discharge ; pt aware. continue tx plan. 01/27: Listening to music in room. Patient reports feeling alright today; she reports being angry last night but is not clear as to reason. Pt stated, I felt angry last night. I don't know why. I was trying to take a shower but I couldn't because they wouldn't let me. Then I just didn't take my medications. I will tonight . denies SI/HI/VH/AH. Patient reports she plans on following up with outpatient providers. Patient educated on: diagnosis and medication risk/benefits Reason for continued inpatient stay Substantial Risk for: stable for discharge Time Spent With Patient Time: Total time managing care of this patient today _20___ minutes.
[2025-01-27 20:00] VITALS: BP 117/60; PULSE 85; RESP 16; TEMP 36.8; O2SAT 100
[2025-01-28 08:00] VITALS: BP 112/51; PULSE 66; RESP 18; TEMP 37.5; O2SAT 98
[2025-01-28] MEDS: Naloxone HCl Nasal TAKE HOME 4 MG SPRAY 8 MG NOSTRILALT (08:18)
--- NOTE | 2025-01-28 08:56 | P.DS_ITS ---
DS: Providers Provider Date of admission: 01/21/25 12:10 Date of discharge: 01/28/25 Primary care physician: Edwina Rogers MD Admitting clinician: Bella Alfaro Attending physician on admission: Jimmy Ansari Attending physician on discharge: Jimmy Ansari Discharging clinician: Bella Alfaro DS: Diagnosis Discharge Diagnosis (1) Bipolar 1 disorder, manic, moderate: Status: Acute (2) Cannabis use disorder: Status: Acute DS: Medications Discharge Medications Home Medications: Previous Rx's ?Medication ?Instructions ?Recorded divalproex 500 mg tablet,extended 1,500 mg (3 x 500 mg ) PO BEDTIME 7 01/27/25 release 24 hr days #21 tabs lithium carbonate 300 mg 600 mg (2 x 300 mg) PO BEDTI ME 7 01/27/25 tablet,extended release days #14 tabs lithium carbonate 450 mg 450 mg PO DAILY 7 days #7 ta bs 01/27/25 tablet,extended release olanzapine 20 mg tablet 20 mg PO BEDTIME 30 days #30 tabs 01/27/25 Mental Status Exam Mental Status Exam Narrative: Pt is alert and oriented; behavior is cooperative and calm; dressed in casual attire; mood is described as good ; eye contact appropriate; Speech is normal rate, volume and not pressured; thought process is organized; Thought content is on discharge; denies SI/HI/VH/AH. Data Data Completed and Pending Completed studies during hospitalization [Text1]: 01/21/25 01/21/25 01/21/25 12:06 12:09 16:48 WBC RBC Hgb Hct MCV MCH MCHC RDW Plt Count MPV Immature Gran % (Auto) Neut % (Auto) Lymph % (Auto) [place] % (Auto) Eos % (Auto) Baso % (Auto) Lymph # (Auto) [place] # (Auto) Eos # (Auto) Baso # (Auto) Abs Immat Gran (auto) Absolute Neuts (auto) Absolute Nucleated RBC Nucleated RBC % (auto) Hold Purple Top SEE NOTE Sodium Potassium Chloride Carbon Dioxide Anion Gap BUN 19 H Creatinine 0.79 Estim Creat Clear Calc 111.9 Estimated GFR > 60 Random Glucose Estimat Average Glucose Hemoglobin A1c % Calcium Total Bilirubin 0.4 Direct Bilirubin 0.2 AST 20 ALT 25 Alkaline Phosphatase 64 Ammonia 29 Total Protein 8.0 Albumin 5.3 H Triglycerides Cholesterol LDL Cholesterol, Calc HDL Cholesterol TSH Urine Color Yellow Urine Appearance Cloudy Urine pH 6.5 Ur Specific [place] >= 1.030 H Urine Protein Trace Urine Glucose (UA) Negative Urine Ketones Trace Urine Blood Negative Urine Nitrite Negative Ur Leukocyte Esterase Negative Urine Test NEGATIVE Urine Opiates Screen Not Detected Ur Buprenorphine Scrn TNP Ur Oxycodone Screen TNP Urine Methadone Screen Not Detected Urine Fentanyl Screen Not Detected Ur Barbiturates Screen Not Detected Valproic Acid < 12.5 L Ur Phencyclidine Scrn Not Detected Ur Amphetamines Screen Not Detected U Benzodiazepines Scrn Not Detected [place] < 0.10 L Urine Cocaine Screen Not Detected U Marijuana (THC) Screen POSITIVE H 01/22/25 01/22/25 01/25/25 08:20 08:33 07:54 WBC 10.4 RBC 4.75 Hgb 14.7 Hct 43.2 MCV 90.9 MCH 30.9 MCHC 34.0 RDW 12.7 Plt Count 331 MPV 10.9 Immature Gran % (Auto) 0.4 Neut % (Auto) 67.8 Lymph % (Auto) 22.9 [place] % (Auto) 6.8 Eos % (Auto) 1.6 Baso % (Auto) 0.5 Lymph # (Auto) 2.4 [place] # (Auto) 0.7 Eos # (Auto) 0.2 Baso # (Auto) 0.1 Abs Immat Gran (auto) 0.04 H Absolute Neuts (auto) 7.0 Absolute Nucleated RBC 0.000 Nucleated RBC % (auto) 0.0 Hold Purple Top Sodium 139 Potassium 4.3 D Chloride 106 Carbon Dioxide 25 Anion Gap 12 BUN 15 Creatinine 0.80 Estim Creat Clear Calc 110.5 Estimated GFR > 60 Random Glucose 117 H Estimat Average Glucose 108 Hemoglobin A1c % 5.4 Calcium 9.6 Total Bilirubin 0.5 Direct Bilirubin AST 18 ALT 23 Alkaline Phosphatase 58 Ammonia Total Protein 7.7 Albumin 4.9 Triglycerides 78 Cholesterol 109 LDL Cholesterol, Calc 60 HDL Cholesterol 34 L TSH Urine Color Urine Appearance Urine pH Ur Specific [place] Urine Protein Urine Glucose (UA) Urine Ketones Urine Blood Urine Nitrite Ur Leukocyte Esterase Urine Test Urine Opiates Screen Ur Buprenorphine Scrn Ur Oxycodone Screen Urine Methadone Screen Urine Fentanyl Screen Ur Barbiturates Screen Valproic Acid 82.2 Ur Phencyclidine Scrn Ur Amphetamines Screen U Benzodiazepines Scrn [place] Urine Cocaine Screen U Marijuana (THC) Screen 01/26/25 08:15 WBC RBC Hgb Hct MCV MCH MCHC RDW Plt Count MPV Immature Gran % (Auto) Neut % (Auto) Lymph % (Auto) [place] % (Auto) Eos % (Auto) Baso % (Auto) Lymph # (Auto) [place] # (Auto) Eos # (Auto) Baso # (Auto) Abs Immat Gran (auto) Absolute Neuts (auto) Absolute Nucleated RBC Nucleated RBC % (auto) Hold Purple Top Sodium 138 Potassium 4.2 Chloride 109 H Carbon Dioxide 24 Anion Gap 9 L BUN 15 Creatinine 0.74 Estim Creat Clear Calc 119.4 Estimated GFR > 60 Random Glucose Estimat Average Glucose Hemoglobin A1c % Calcium Total Bilirubin Direct Bilirubin AST ALT Alkaline Phosphatase [place] Total Protein Albumin Triglycerides Cholesterol LDL Cholesterol, Calc HDL Cholesterol TSH 1.27 Urine Color Urine Appearance Urine pH Ur Specific [place] Urine Protein Urine Glucose (UA) Urine Ketones Urine Blood Urine Nitrite Ur Leukocyte Esterase Urine Test Urine Opiates Screen Ur Buprenorphine Scrn Ur Oxycodone Screen Urine Methadone Screen Urine Fentanyl Screen Ur Barbiturates Screen Valproic Acid Ur Phencyclidine Scrn Ur Amphetamines Screen U Benzodiazepines Scrn [place] 0.72 Urine Cocaine Screen U Marijuana (THC) Screen DS: Summary Hospital Course Hospital Course: Patient is a 24-year-old female with history of bipolar disorder, cocaine use disorder and cannabis use disorder who self presented to ER due to increased depression secondary to life stressors. Per crisis report, patient reported depression and stomach pain. History of suicide attempts and non medication compliance. Patient reports worsening depression but is unable to identify triggers. She reported suicidal ideation with no plan. Appears thought blocking throughout the assessment. Denies HI/VH/AH. She reports poor sleep and appetite. Did not appear to be responding to internal stimuli. She reports daily marijuana use. During admission assessment, patient presents alert and oriented x3. Calm and cooperative. Appears thought blocking at times. Patient reports feeling depressed ; patient stated, everything is making me depressed. Work, family situation and not getting along with them. I don't feel like I have support. Sometimes I want to give up but I'm trying to keep my head high . Patient denies HI/VH/AH. Passive SI with no plan or intent. Patient reports she came to the hospital with hopes of being able to talk to somebody . She reports being medication compliant; will obtain lithium level and valproic acid level. She reports poor sleep due to nightmares. Plan: CV 15 minute safety checks Obtain collateral Encourage groups Continue home medications Obtain labs Referral to outpatient prescriber Discharge planning Keeping to self. laying in bed most of shift. Patient continue to report feeling depressed today; T/W discussed pts [place] level being <0.10 and Valproic acid level being <12.5. Pt stated, I haven't been taking my medications everyday. I've been forgetting a lot ; educated regarding importance of medication compliance. She has been medication compliant while on the unit. denies SI/HI/VH/AH. Encouraged to attend groups, which she reports she will try to attend tomorrow. Continue tx plan. patient reports she has court date tomorrow, would like primary team to let the court know she is in the hospital. Will check VPA level tomorrow morning Patient reports feeling stressed about stuff but better than admission; denies SI/HI/VH/AH. Valproic acid level 82.2; [place] level to be drawn tomorrow morning; pt aware. Future oriented. Pt reports she plans on returning to work when discharged; planning for discharge this week if continues to improve. Continue tx plan. Patient reports feeling okay today;focused on things she needs to do when disc harged related to work and being on probation. denies SI/HI/VH/AH. [place] level 0.72 on 01/26/25; pt aware. She reports sleeping well. denies SI/HI/VH/AH. Encouraged to go to groups. Plan to discharge ; pt aware. continue tx plan. Listening to music in room. Patient reports feeling alright today; she reports being angry last night but is not clear as to reason. Pt stated, I felt an gry last night. I don't know why. I was trying to take a shower but I couldn't because they wouldn't let me. Then I just didn't take my medications. I will tonight . denies SI/HI/VH/AH. Patient reports she plans on following up with outpatient providers. Patient reports feeling good today; denies SI/HI/VH/AH. Patient reports she plans on being medication compliant and following up with outpatient providers. Status at Discharge Cognitive/behavioral status at discharge: Patient has insight and demonstrates good judgment in terms of wanting to pursue treatment. Patient has a safety plan that includes presenting to the closest ER or calling 911 if feeling unsafe. Functional status at discharge: independent ambulation Overall status at discharge: patient is back to baseline Time Spent with Patient Time attestation: Total time managing care of this patient today _20___ minutes. Time spent: Less than 30 minutes Discharge Plan Discharge Anticipated Discharge Date/Time: 01/28/25 11:00 Patient Disposition: Home, Self-Care Discharge Diagnosis: Bipolar d/o, Cocaine use d/o Referrals: Therapy & Psychiatry [Other] - 1 Week Referral Note: *[facility] has been informed of your scheduled discharge. Please follow up with them at the number listed above in order to obtain your after care appointment information. You will be assigned to a psychiatric prescriber. Edwina Rogers MD [Primary Care Provider, [facility]] Referral Note: 01-28-25 Please contact your primary care provider within 7- 10 days of discharge to schedule a follow up appt. No release on file. Discharge Medications: New divalproex 500 mg Tablet Extended Release 24 Hr 1,500 mg PO BEDTIME 7 Days Qty: 21 1RF lithium carbonate 300 mg Tablet Extended Release 600 mg PO BEDTIME 7 Days Qty: 14 1RF lithium carbonate 450 mg Tablet Extended Release 450 mg PO DAILY 7 Days Qty: 7 1RF olanzapine 20 mg tablet 20 mg PO BEDTIME 30 Days Qty: 30 0RF Discharge Orders: Discharge Order (Routine); Ordered 01/28/25 Ordered By: Bella Alfaro Diet: Regular diet Activity on Discharge: As tolerated Stand Alone Forms: Patient Portal Discharge page, Community Support Print Language: [place] Care Plan Goals: Maintain mood and safe behaviors Take medications as prescribed Continue to pursue sobriety Practice coping skills Continue with outpatient providers and reach out to them as needed Health Concerns: Mood stability and behaviors Sobriety Plan of Treatment: Follow up with your PCP, psychiatric provider and other outpatient providers regarding above concerns Take medications as prescribed Assessment: Patient has insight and demonstrates good judgment in terms of wanting to pursue treatment. Patient has a safety plan that includes presenting to the closest ER or calling 911 if feeling unsafe.
== END 2025-01-28 11:10 | disposition home or self-care (01) | DRG 753 ==
LOC: HO.ED 01-21 02:51 → HO.PADLT16 01-21 12:11
PROVIDERS: Nurse Practitioner Family; Psychiatry & Neurology Psychiatry; Admitting Provider Registered Nurse; Emergency Provider Emergency Medicine; PCP Family Medicine; Responsible Provider Registered Nurse; Visit Provider Psychiatry & Neurology Psychiatry
DX: F31.12 Bipolar disorder, current episode manic without psychotic features, moderate (principal); F12.90 Cannabis use, unspecified, uncomplicated; Z23 Encounter for immunization; F14.90 Cocaine use, unspecified, uncomplicated; Z59.02 Unsheltered homelessness; Z79.899 Other long term (current) drug therapy
CPT/HCPCS: 36415; 80051; 80053; 80061; 80076; 80143; 80164; 80178; 80179; 80307; 81003; 81025; 82140; 82565; 83036; 84443; 84520; 85025; 90656; 93005; 99285; S9485

== ENCOUNTER → 2025-01-20 08:42 | Outpatient (BNV) | payer OTHER, SELFPAY | PROVIDERS: Emergency Provider Emergency Medicine; PCP Family Medicine; Visit Provider Internal Medicine Cardiovascular Disease | DX: Z03.89 Encounter for observation for other suspected diseases and conditions ruled out (principal) | CPT/HCPCS: 93010 ==

== ENCOUNTER → 2025-01-21 12:10 | Outpatient (BNV) | payer OTHER, SELFPAY | PROVIDERS: Admitting Provider Registered Nurse; Emergency Provider Emergency Medicine; PCP Family Medicine; Visit Provider Nurse Practitioner Family | DX: F32.A Depression, unspecified (principal) | CPT/HCPCS: 99221 ==

== ENCOUNTER → 2025-01-21 12:10 | Outpatient (BNV) | payer OTHER, SELFPAY | PROVIDERS: Admitting Provider Registered Nurse; Emergency Provider Emergency Medicine; PCP Family Medicine; Visit Provider Registered Nurse | DX: F31.12 Bipolar disorder, current episode manic without psychotic features, moderate (principal); F12.90 Cannabis use, unspecified, uncomplicated | CPT/HCPCS: 90792 ==